=== PATIENT | male | born 1990 | race Caucasian/White ===

== ENCOUNTER 2023-12-06 16:15 | Inpatient (IN) | payer OTHER, SELFPAY ==
--- NOTE | 2023-12-06 16:26 | ED_ITS ---
HPI - General Adult General Chief complaint: Psychiatric Symptoms Stated complaint: crisis Time Seen by Provider: 12/06/23 16:38 Source: patient Mode of arrival: ambulatory Limitations: no limitations History of Present Illness HPI narrative: Patient comes to the emergency room complaining of suicidal ideation, planning to overdose. Patient states that he has been 3 months sober of alcohol and cocaine. Patient has been in sober houses but kicked out due to his bed temper. Patient states that he is afraid that he is going to continue using drugs in overdose. Patient denies homicidal ideation. Related Data Home Medications Medication Instructions Recorded Confirmed blood sugar diagnostic (FreeStyle 12/06/23 12/06/23 Lite Strips) insulin glargine 100 unit/mL (3 30 unit subcut BEDTIME 12/06/23 12/06/23 mL) subcutaneous pen (Lantus Solostar U-100 Insulin) insulin lispro protamine-lispro 1 unit subcut QID 12/06/23 12/06/23 100 unit/mL (50-50) subcutaneous pen (Humalog Mix 50-50 KwikPen) nicotine 21 mg/24 hr daily 1 patch topical DAILY 12/06/23 12/06/23 transdermal patch Allergies Allergy/AdvReac Type Severity Reaction Status Date / Time No Known Allergies Allergy Verified 12/06/23 16:26 Review of Systems 2 Review of Systems: Constitutional : No Weight loss, No Fever, No Chills, No Night Sweats, No Fatigue, No Malaise ENT/Mouth : No Hearing loss, No Ear Pain, No Nasal Congestion, No Sinus Pain, No Hoarseness, No sore throat, No Rhinorrhea, No Swallowing Difficulty Eyes: No Eye Pain, No Swelling, No Redness, No Foreign Body, No Discharge, No Vision Changes Cardiovascular : No Chest Pain, No SOB, No Dyspnea on Exertion, No Orthopnea, No Edema, No Palpitations Respiratory : No Cough, No Sputum, No Wheezing, No Smoke Exposure, No Dyspnea Gastrointestinal : No Nausea, No Vomiting, No Diarrhea, No Constipation, No abdominal Pain, No Hematochezia, No Melena Genitourinary : no irregular bleeding, No Dysuria, No Urinary Frequency, No Hematuria, No Urinary Incontinence, No Urgency, No Flank Pain, No Urinary Flow Changes, No Hesitancy Musculoskeletal : No joint pain, No Myalgias, No Joint Swelling Skin : No Skin Lesions, No rash Neuro : No Weakness, No Numbness, No Paresthesias, No Loss of Consciousness, No Dizziness, No Headache Psych : No Anxiety/Panic, complaining of depression, vague SI no HI, homeless Heme/Lymph: No Bruising, No Bleeding,No Lymphadenopathy Endocrine : No Polyuria, No Polydipsia, No Temperature Intolerance [facility] Past Medical History Medical History Depression Alcohol abuse Polysubstance abuse Social History Social History Smoked in Last 30 Days: Yes Use of substances other than those prescribed or required for medical reasons: No Substance Use Type: Former Substance User Advance Directives: No Advance Directives Information Provided: No Healthcare Proxy: No Guardian: No Physical Exam ED Vital Signs: Vital Signs - 24 hr 12/06/23 16:27 12/06/23 20:59 12/07/23 06:00 Temperature 98.0 F 98.3 F 97.8 F Pulse Rate 87 80 73 Respiratory Rate 16 16 16 Blood Pressure 129/78 122/82 104/60 Pulse Oximetry 97 98 97 Oxygen Delivery Method Room Air Room Air Room Air BMI result Body Mass Index 26.7 Const Other: Appearance: Alert. Oriented X3. No acute distress. Eyes: Pupils equal, round and reactive to light. ENT: Pharynx normal. Neck: Normal inspection. Neck supple. No lymph nodes noted. No crepitus CVS: Normal heart rate and rhythm. Pulses normal. Normal S1 and S2 Respiratory: No respiratory distress. Breath sounds normal. No Wheezing. No rales Abdomen: Soft and nontender. No rigidity. No distention. Skin: Skin warm and dry. Normal skin color. Normal skin turgor. Extremities: No lower extremity edema. No Lacerations. No Rash Neuro: Oriented X 3. No motor deficit. No sensory deficit. Moving all extremities. No slurred speech. CN 2 through 12 grossly intact Psych: calm, cooperative, normal affect Course Course Course Narrative: RME- 33 year old male presents for evaluation of depression with suicidal ideation and plan to overdose. Reports that he has not used in 3 months. Plan for medical clearance and care team consult Medications Administered Generic Name Dose Route Start Last Admin Trade Name Freq PRN Reason Stop Dose Admin Insulin Glargine 30 unit 12/06/23 22:45 12/06/23 23:23 Insulin Glargine,Hum.Rec.Anlog 100 Unit/Ml 10 Ml Vial SUBCUT 30 unit BEDTIME AURELIA Administration Discontinued Medications Generic Name Dose Route Start Last Admin Trade Name Narciso PRN Reason Stop Dose Admin Lorazepam 2 mg 12/06/23 21:12 12/06/23 21:31 Lorazepam 1 Mg Tablet PO 12/06/23 21:13 2 mg ONCE ONE Administration Nicotine 21 mg 12/06/23 21:33 12/06/23 21:39 Nicotine 21 Mg Patch.Td24 TRANSDERMA 12/06/23 21:34 21 mg ONCE ONE Administration Non-Formulary Medication 1 unit 12/06/23 22:45 12/06/23 23:31 Insulin Lispro Protamin-Lispro [Humalog Mix 50-50 Kwikpen] SUBCUT Not Given QID AURELIA Medical Decision Making Medical Decision Making MDM Narrative: -labs pending -care team consult pending -physician observation started at 17:16 12/07/2023 Physician observation continued Patient has been in the emergency department for approximately 14 hours. There were no reported incidents on this patient by the overnight staff. Patient is in [facility] bed search. Patient will remain in the emergency department Behavioral Health Unit until disposition can be determined or until patient's symptoms improve over time. Differential Diagnosis Differential Diagnoses: The differential diagnosis associated with the presentation includes (Anxiety, depression, polysubstance abuse, homeless) Admission/Observation Consideration of admission/observation: Escalation of care including admission/observation considered (Patient is under physician observation, waiting to be seen by the care team) Lab Data 12/06/23 16:45 12/06/23 16:45 Labs: Lab Results 12/06/23 12/06/23 12/06/23 Range/Units 16:45 18:34 21:45 WBC 7.8 (4.8-10.8) X10*3/uL RBC 5.29 (4.60-5.80) X10*6/uL Hgb 14.9 (14.0-18.0) g/dl Hct 42.0 (42.0-52.0) % MCV 79.4 L (80.0-98.0) fL MCH 28.2 (27.0-33.0) pg MCHC 35.5 (31.0-36.0) g/dl RDW 12.5 (11.0-16.0) % Plt Count 305 (160-400) X10*3/uL MPV 9.1 L (9.4-12.4) fL Immature Gran % (Auto) 0.4 (0.0-0.4) % Neut % (Auto) 63.1 (45-73) % Lymph % (Auto) 27.0 (20-40) % [place] % (Auto) 6.3 (2-11) % Eos % (Auto) 2.7 (0-4) % Baso % (Auto) 0.5 (0-2) % Lymph # (Auto) 2.1 (1.2-4.9) X10*3/uL [place] # (Auto) 0.5 (0.1-1.2) X10*3/uL Eos # (Auto) 0.2 (0.0-0.4) X10*3/uL Baso # (Auto) 0.0 (0.0-0.2) X10*3/uL Abs Immat Gran (auto) 0.03 (0.00-0.03) X10*3/uL Absolute Neuts (auto) 4.9 (2.0-8.3) x10*3/uL Absolute Nucleated RBC 0.000 (0.0-0.012) X10*3/uL Nucleated RBC % (auto) 0.0 (0.0-0.2) /100WBC Sodium 135 (135-145) mmol/L Potassium 4.1 (3.3-5.1) mmol/L Chloride 101 (96-108) mmol/L Carbon Dioxide 26 (22-29) mmol/L Anion Gap 12 (12-20) BUN 11 (9-16) mg/dL Creatinine 1.30 (0.5-1.4) mg/dL Estim Creat Clear Calc 76.9 Estimated GFR > 60 POC Glucose 154 H 145 H (60-115) mg/dL Random Glucose 373 H* (60-115) mg/dL Calcium 9.6 (8.4-10.2) mg/dL Total Bilirubin 0.6 (0.0-1.0) mg/dL AST 15 (5-37) U/L ALT 12 (0-40) U/L Alkaline Phosphatase 78 (39-117) U/L Total Protein 7.9 (6.5-8.0) g/dL Albumin 4.2 (3.5-5.0) g/dL Urine Color Yellow Urine Appearance Clear Urine pH 6.0 (5.0-9.0) Ur Specific [place] 1.020 (1.005-1.025) Urine Protein 30 (1+) H (Neg-Trace) mg/dL Urine Glucose (UA) >=1000 H (Negative) mg/dL Urine Ketones Negative (Negative) mg/dL Urine Blood Negative (Negative) Urine Nitrite Negative (Negative) Ur Leukocyte Esterase Negative (Negative) Urine RBC 0-2 (0-2) /HPF Urine WBC 0-5 (0-5) /HPF Ur Squamous Epith Cells 0-2 (0-2) /HPF Urine Bacteria None Seen (None Seen) Hyaline Casts 0-2 (0-2) /LPF Salicylates < 5.0 L (15-30) mg/dL Urine Opiates Screen Not Detected (Not Detect) Urine Fentanyl Screen Not Detected (Not Detect) Acetaminophen < 3 (<30) mcg/mL Ur Barbiturates Screen Not Detected (Not Detect) Ur Phencyclidine Scrn Not Detected (Not Detect) Ur Amphetamines Screen Not Detected (Not Detect) U Benzodiazepines Scrn Not Detected (Not Detect) Urine Cocaine Screen Not Detected (Not Detect) U Marijuana (THC) Screen Not Detected (Not Detect) Ethyl Alcohol < 10 mg/dL COVID-19 (LEXA) Negative (Negative) COVID-19 Clin Com See Note 12/06/23 Range/Units 22:38 WBC (4.8-10.8) X10*3/uL RBC (4.60-5.80) X10*6/uL Hgb (14.0-18.0) g/dl Hct (42.0-52.0) % MCV (80.0-98.0) fL MCH (27.0-33.0) pg MCHC (31.0-36.0) g/dl RDW (11.0-16.0) % Plt Count (160-400) X10*3/uL MPV (9.4-12.4) fL Immature Gran % (Auto) (0.0-0.4) % Neut % (Auto) (45-73) % Lymph % (Auto) (20-40) % [place] % (Auto) (2-11) % Eos % (Auto) (0-4) % Baso % (Auto) (0-2) % Lymph # (Auto) (1.2-4.9) X10*3/uL [place] # (Auto) (0.1-1.2) X10*3/uL Eos # (Auto) (0.0-0.4) X10*3/uL Baso # (Auto) (0.0-0.2) X10*3/uL Abs Immat Gran (auto) (0.00-0.03) X10*3/uL Absolute Neuts (auto) (2.0-8.3) x10*3/uL Absolute Nucleated RBC (0.0-0.012) X10*3/uL Nucleated RBC % (auto) (0.0-0.2) /100WBC Sodium (135-145) mmol/L Potassium (3.3-5.1) mmol/L Chloride (96-108) mmol/L Carbon Dioxide (22-29) mmol/L Anion Gap (12-20) BUN (9-16) mg/dL Creatinine (0.5-1.4) mg/dL Estim Creat Clear Calc Estimated GFR POC Glucose 145 H (60-115) mg/dL Random Glucose (60-115) mg/dL Calcium (8.4-10.2) mg/dL Total Bilirubin (0.0-1.0) mg/dL AST (5-37) U/L ALT (0-40) U/L Alkaline Phosphatase (39-117) U/L Total Protein (6.5-8.0) g/dL Albumin (3.5-5.0) g/dL Urine Color Urine Appearance Urine pH (5.0-9.0) Ur Specific [place] (1.005-1.025) Urine Protein (Neg-Trace) mg/dL Urine Glucose (UA) (Negative) mg/dL Urine Ketones (Negative) mg/dL Urine Blood (Negative) Urine Nitrite (Negative) Ur Leukocyte Esterase (Negative) Urine RBC (0-2) /HPF Urine WBC (0-5) /HPF Ur Squamous Epith Cells (0-2) /HPF Urine Bacteria (None Seen) Hyaline Casts (0-2) /LPF Salicylates (15-30) mg/dL Urine Opiates Screen (Not Detect) Urine Fentanyl Screen (Not Detect) Acetaminophen (<30) mcg/mL Ur Barbiturates Screen (Not Detect) Ur Phencyclidine Scrn (Not Detect) Ur Amphetamines Screen (Not Detect) U Benzodiazepines Scrn (Not Detect) Urine Cocaine Screen (Not Detect) U Marijuana (THC) Screen (Not Detect) Ethyl Alcohol mg/dL COVID-19 (LEXA) (Negative) COVID-19 Clin Com Discharge Plan Discharge Clinical Impression: Polysubstance abuse, Depression Patient Disposition: Still a Patient Prescriptions: No Action (DME) FreeStyle Lite Strips Strip 1 strip MISCELLANEOUS TID nicotine 21 mg/24 hr patch 24 hour 1 patch topical DAILY Humalog Mix 50-50 KwikPen 100 unit/mL (50-50) insulin pen 1 unit subcut QID Protocol: Insulin Correction Scale Less than or equal to 110 ---- Give (units): 0 111 to 150 Give (units): 2 151 to 200 Give (units): 2 201 to 250 Give (units): 4 251 to 300 Give (units): 6 301 to 350 Give (units): 8 Greater than 350 Give (units): 10 Call MD if Blood Glucose > : 350 Rx Instructions: Give 1U for every 20 points blood glucose is reading over 100. At meal times give 1U for every 15G of Carbohydrates. insulin glargine [Lantus Solostar U-100 Insulin] 100 unit/mL (3 mL) insulin pen 30 unit subcut BEDTIME Rx Instructions: 30U Sub Q at [facility]. Interventions: [place]-Suicide Risk Severity Scale Last Done: 12/07/23 05:54
[2023-12-06 16:27] VITALS: BP 129/78; PULSE 87; RESP 16; TEMP 36.7; O2SAT 97; BMI 26.7
--- OUTSIDE RECORDS SUMMARY | 2023-12-06 16:49 | XMS_ITS | Continuity of Care Document ---
Author Name Unknown Organization [facility] Address [address] [place] [id number]- Care Team Providers Care Marina Porter Name Role Phone Sunil Giorn MD Primary Care Physician [place] [facility] [place]/20 [facility] [address] [place] [id number] Attending Physician: Admtr, Ar8 Admitting Physician: Admtr, Ar8 Referring Physician: Admtr, Ar8 Allergies, Adverse Reactions, Alerts Substance Reaction Severity Status NKA Active Medications Admelog 100 units/mL injectable solution See Instructions, Use to infuse via insulin pump 45 units daily, E10.9, # 20 mL, 5 Refills, Maintenance, 09/22/20 8:27:00 EST, [id number], 170, cm, 09/22/20 7:59:00 EST, Height Start Date: 09/22/20 Status: Ordered Basaglar KwikPen 100 units/mL subcutaneous solution See Instructions, Take 30 units once daily. E10.65, # 30 mL, 5 Refills, Maintenance, 09/22/20 8:26:00 EST, [id number], 170, cm, 09/22/20 7:59:00 EST, Height Start Date: 09/22/20 Status: Ordered citalopram 40 mg oral tablet 1 tablet = 40 mg, By Mouth, Daily, # 90 tablet, 0 Refills, Maintenance, 01/09/16 12:12:00, Tablet, cancel rx for citalopram 20 mg daily, 1 tablet By Mouth Daily Start Date: 01/09/16 Status: Ordered Freestyle Lite Lancets See Instructions, # 200 each, Refills 6, Tot. Refills 6, Maintenance, TEST BLOOD SUGARS 6 TIMES A DAY DX: E11.9, 09/18/19 11:14:20 EST, Compound Start Date: 09/18/19 Stop Date: 04/15/20 Status: Ordered Freestyle Lite Monitor See Instructions, # 1 each, Refills 1, Tot. Refills 1, Maintenance, use to check blood sugar 6-7 times per day. E10.65., 09/22/20 8:29:00 EST, Supply, 170, cm, 09/22/20 7:59:00 EST, Height Start Date: 09/22/20 Stop Date: 11/21/20 Status: Ordered Freestyle Lite Test Strips See Instructions, # 200 each, Refills 11, Tot. Refills 11, Maintenance, for management of T1DM: check BG 6-7 times per day, 09/22/20 8:27:00 EST, Compound, 170, cm, 09/22/20 7:59:00 EST, Height Start Date: 09/22/20 Status: Ordered Glucagon Emergency Kit See Instructions, PRN, # 2 each, Refills 3, Tot. Refills 3, Maintenance, Blood Glucose, use as directed for Type 1 Diabetes Mellitus, in the event of severe low blood., 09/22/20 8:29:00 EST, Compound, 170, cm, 09/22/20 7:59:00 EST, Height Start Date: 09/22/20 Stop Date: 01/20/21 Status: Ordered Insulin Syringe, BD Ultra-Fine 0.5 cc 31 G x 8 mm (03/22in) See Instructions, # 100 each, Refills 5, Tot. Refills 5, Maintenance, use 4 x daily as directed forType 1 Diabetes Mellitus, 09/22/20 8:28:00 EST, Compound, 170, cm, 09/22/20 7:59:00 EST, Height Start Date: 09/22/20 Stop Date: 03/21/21 Status: Ordered Pen [place], 31 G x 8 mm BD Ultra Fine III See Instructions, # 100 each, Refills 11, Tot. Refills 11, Maintenance, Use to inject long acting insulin once daily. T1DM E10.9, 09/22/20 8:30:00 EST, Compound, 170, cm, 09/22/20 7:59:00 EST, Height Start Date: 09/22/20 Status: Ordered right and left cocup splints right and left cocup splints, See Instructions, # 1 pair, Refills 0, Tot. Refills 0, Maintenance, Use as directed, 01/14/15 17:28:34, Compound Start Date: 01/14/15 Status: Ordered risperiDONE 0.5 mg oral tablet 0.5 mg, 1, tablet, By Mouth, Daily, # 30 tablet, Refills 0, Maintenance, 05/13/16 15:59:31 Start Date: 05/13/16 Status: Ordered Splint See Instructions, # 1 pair, Maintenance, bilateral cocup splints DX: CTS, 04/09/16 14:07:09, Compound Start Date: 04/09/16 Status: Ordered Wellbutrin SR 100 mg oral tablet, extended release 1 tablet = 100 mg, By Mouth, 2 times a day, APPT NEEDED FOR ADDITIONAL REFILLS, # 60 tablet, 0 Refills, Maintenance, 03/16/16 18:39:03, ER Tablet Start Date: 03/16/16 Status: Ordered Problem List Condition Effective Dates Status Health Status Inform ant Carpal tunnel syndrome - bilateral(Confirmed) Active Cigarette smoker(Confirmed) Active Major depression(Confirmed) Active Insulin pump present(Confirmed) Active Pustular acne(Confirmed) Active Type 1 diabetes mellitus(Confirmed) Active Social History Social History Type Response Smoking Status Current every day brinda paniagua entered on: 05/13/16 Sex
--- OUTSIDE RECORDS SUMMARY | 2023-12-06 16:49 | XMS_ITS | Continuity of Care Document ---
Author Name Unknown Organization [facility] Address [address] [place] [address]- Care Team Providers Care Yeast Stacker Name Role Phone Not on Staff, PCP Primary Care Physician Unavail able [place] [facility] [place] - 08/20/[address] [address]- Encounter Diagnosis Lumbar transverse process fracture(Final) - 08/20/22 Discharge Disposition: A-D/C Home Attending Physician: Kobe Parks DO Admitting Physician: Kobe Parks DO Referring Physician: Not on Staff, Referring MD Allergies, Adverse Reactions, Alerts No Known Allergies Medications Basaglar KwikPen 100 units/mL subcutaneous solution See Instructions, Take 30 units once daily. E10.65, # 30 mL, 5 Refills, Maintenance, 04/21/22 14:18:00 EDT, [facility]/pharmacy #[id number], 170, cm, 01/28/21 11:40:00 EDT, Height, 73, kg, 01/28/21 11:40:00 EDT, Dry Weight Start Date: 04/21/22 Status: Ordered citalopram 40 mg oral tablet 1 tablet = 40 mg, By Mouth, Daily, # 90 tablet, 0 Refills, Maintenance, 01/09/16 12:12:00, Tablet, cancel rx for citalopram 20 mg daily, 1 tablet By Mouth Daily Start Date: 01/09/16 Status: Ordered Dilaudid Inj 1 mg, Injection, IV Push Slowly, Once, STAT, 08/20/22 8:21:00 EDT, Stop date 08/20/22 8:21:00 EDT Start Date: 08/20/22 Stop Date: 08/20/22 Status: Completed Freestyle Lite Lancets See Instructions, # 200 [...] Date: 09/22/20 Stop Date: 01/20/21 Status: Ordered Humalog 100 u/ml subcutaneous injection See Instructions, USE TO INFUSE VIA INSULIN PUMP UP TO 45 UNITS DAILY DX E10.65 FILL LISPRO ONLY, # 30 mL, 5 Refills, 04/23/22 13:54:00 EDT, [facility]/pharmacy #[id number], 170, cm, 01/28/21 11:40:00 EDT, Height, 73, kg, 01/28/21 11:40:00 EDT, Dry Weight Start Date: 04/23/22 Status: Ordered Insulin Syringe, BD Ultra-Fine 0.5 cc 31 G x 8 mm (16in) See Instructions, # 100 each, Refills 5, Tot. Refills 5, Maintenance, use 4 x daily as directed forType 1 Diabetes Mellitus, 09/22/20 8:28:00 EST, Compound, 170, cm, 09/22/20 7:59:00 EST, Height Start Date: 09/22/20 Stop Date: 03/21/21 Status: Ordered Lantus Solostar Pen 100 units/mL subcutaneous solution = 30 units, Subcutaneous Infusion, Daily, FILL LANTUS ONLY Sq injection 30 U qd DX E10.65, # 30 mL, 5 Refills, Maintenance, 04/23/22 10:57:00 EDT, [facility]/pharmacy #[id number], Partial fill upon patient request if the prescription is for a schedule II... Start Date: 04/23/22 Stop Date: 10/20/22 Status: Ordered oxyCODONE 5 mg oral tablet 5 mg, 1, tablet, By Mouth, Every 6 hours, PRN, for 5 days, # 20 tablet, Refills 0, Tot. Refills 0, Acute 08/25/22 8:52:00 EDT, as needed for pain, 08/20/22 8:52:00 EDT, Route to Pharmacy Electronically, [facility]/pharmacy #[id number], Partial fill upon patient re... Start Date: 08/20/22 Stop Date: 08/25/22 Status: Ordered Pen [place], 31 G x 8 mm BD Ultra [...] Date: 03/16/16 Status: Ordered Problem List Condition Confirmation Course Effective Dates Status Health St atus Informant Carpal tunnel syndrome - bilateral Confirmed Active Cigarette smoker Confirmed Active Major depression Confirmed Active Insulin pump present Confirmed Active Pustular acne Confirmed Active Type 1 diabetes mellitus Confirmed Active Vital Signs Most recent to oldest [Reference Range]: 1 2 3 Height 166 cm (08/20/22 6:10 AM) Weight 73 kg (08/20/22 6:10 AM) Oxygen Saturation [94-100 %] 97 % (08/20/22 8:56 AM) 98 % (08/20/22 8:25 AM) 97 % (08/20/22 7:33 AM) Pulse Rate [55-90 bpm] 81 bpm (08/20/22 8:56 AM) 75 bpm (08/20/22 8:25 AM) 78 bpm (08/20/22 7:33 AM) Blood Pressure [90-138/55-84 mm Hg] 136/88mm Hg (08/20/22 8:56 AM) 131/87mm Hg (08/20/22 8:25 AM) 110/81mm Hg (08/20/22 7:33 AM) Respiratory Rate [16-30 br/min] 18 br/min (08/20/22 8:56 AM) 18 br/min (08/20/22 8:26 AM) 18 br/min (08/20/22 8:25 AM) Temperature [96.8-100.4 DegF] 97.9 DegF (08/20/22 6:10 AM) Mode of Delivery (Oxygen) Room air (08/20/22 8:56 AM) Room air (08/20/22 8:25 AM) Room air (08/20/22 7:33 AM) Temperature Route Oral (08/20/22 6:10 AM) Dry Weight 73 kg (08/20/22 6:10 AM) Social History Social History Type Response Smoking Status Current every day brinda paniagua entered on: 05/13/16 Sex Patient Care team information Personnel Name: Not on Staff, PCP
--- OUTSIDE RECORDS SUMMARY | 2023-12-06 16:49 | XMS_ITS | Continuity of Care Document ---
Author Name Unknown Organization [facility] Address [address] [place] [address]- Care Team Providers Care Nut Sheller Name Role Phone Not on Staff, PCP Primary Care Physician Unavail able [place] [facility] [place]23 - 07/23/23 [facility] [address] [place] [id number]- Allergies, Adverse Reactions, Alerts No Known Allergies Medications citalopram 40 mg oral tablet 1 tablet [...] 30 mL, 5 Refills, 04/23/22 13:54:00 EDT, [id number], 170, cm, 01/28/21 11:40:00 EDT, Height, [...] U qd DX E10.65, # 30 mL, 3 Refills, Maintenance, 06/23/23 8:34:00 EDT, [facility]/pharmacy #[id number], Partial fill upon patient request if the prescription is for a schedule II opioi... Start Date: 06/23/23 Stop Date: 10/21/23 Status: Ordered Pen [place], 31 G x 8 mm BD Ultra [...] Condition Confirmation Course Effective Dates Status Health atus Informant Carpal tunnel syndrome - bilateral Confirmed Active Cigarette smoker Confirmed Active Major depression Confirmed Active Insulin pump present Confirmed Active Pustular acne Confirmed Active Type 1 diabetes mellitus Confirmed Active Social History Social History Type Response Smoking Status Current every day brinda paniagua entered on: 05/13/16 Sex Patient Care team information Care Team Personnel Name: Not on Staff, PCP Position: S Physician (General Medicine) Member Role: PCP Care Team Related Persons Name: NIEVES BARGER Address: [place] [address] Name: DL BARGER Address: home [address] [place] [id number]
--- OUTSIDE RECORDS SUMMARY | 2023-12-06 16:49 | XMS_ITS | Continuity of Care Document ---
Author Name Unknown Organization [facility] Address [address] [place] [address]- Care Team Providers Care Cork Cutter Name Role Phone Not on Staff, PCP Primary Care Physician Unavail able [place] [facility] [place] 04[place] 06/[place]/22 [facility] [address] [place] [id number] Attending Physician: Mary Guillen MD Admitting Physician: Mary Guillen MD Referring Physician: Not on Staff, Referring MD Allergies, Adverse Reactions, Alerts No Known Allergies Medications Basaglar KwikPen 100 units/mL subcutaneous solution See Instructions, Take 30 units once daily. E10.65, # 30 mL, 5 Refills, Maintenance, 04/21/22 14:18:00 EDT, [id number], 170, cm, 01/28/21 11:40:00 [...] 30 mL, 5 Refills, 04/23/22 13:54:00 EDT, [facility]/pharmacy #[id number], 170, cm, 01/28/21 11:40:00 EDT, Height, [...] mL, 5 Refills, Maintenance, 04/23/22 10:57:00 EDT, [facility]/pharmacy #[id number], Partial fill upon patient request if the prescription is for a schedule II... Start Date: 04/23/22 Stop Date: 10/20/22 Status: Ordered Pen [place], 31 G x 8 mm BD Ultra [...]
--- OUTSIDE RECORDS SUMMARY | 2023-12-06 16:49 | XMS_ITS | Continuity of Care Document ---
Author Name Unknown Organization [facility] Address [address] [place] [address]- Care Team Providers Care Air Pumper Name Role Phone Not on Staff, PCP Primary Care Physician Unavail able En[place] [facility] [place] Date(s): 04/23/22 - 05/23/22 [facility] Diabetes [address] [place] [id number] Allergies, Adverse Reactions, Alerts No Known Allergies [...] 0.5 cc 31 G x 8 mm (5/16in) See Instructions, # 100 each, Refills 5, [...] mL, 5 Refills, Maintenance, 04/23/22 10:57:00 EDT, [id number], Partial fill upon patient request if the prescription is for a schedule II... Start Date: 04/23/22 Stop Date: 10/20/22 Status: Ordered Pen [place], 31 G x 8 mm BD Ultra [...]
--- OUTSIDE RECORDS SUMMARY | 2023-12-06 16:49 | XMS_ITS | Continuity of Care Document ---
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 fractures involving the anterior wall of the LEFT maxillary sinus extending into the maxillary alveolus into the region of the costophrenic first bicuspid. * Acute displaced LEFT nasal bone fracture. * Severe dental disease. * No acute intracranial hemorrhage, depressed calvarial fracture, or acute cervical vertebral osseous injury identified. Thank you for letting us participate in the care of this patient. If you are a health care provider and have any questions regarding this report, please contact the number below. For patients who have questions please contact the health healthcare project manager that requested your imaging first. ?? Signed By: RADHA SOLIS . Notes: Patient presented the emergency room with details listed in the HPI above. I discussed with patient a broad differential diagnosis including but not limited to intracranial bleeding, concussion, cervical injury, and/or facial fracture. Appropriate work-up has been ordered to address a broad differential including that listed above. Patient will continue to be monitored., 1850 patient was reevaluated feeling much better wanting to go home. Patient is aware of his old fractures. He is aware of his new fractures including his maxillary fracture and nasal fracture. He understands he needs to follow-up with ENT for any potential need to reduce his nasal fracture once the swelling is decreased. He has no septal hematoma. He was given strict return instructions. I discussed with them a broad differential diagnosis. Discussed with them all incidental findings and they acknowledged understanding. They acknowledge the need to follow-up with her primary care provider to discuss today's findings and any need for further follow-up. They agreed should their symptoms worsen, change, any concerns to contact their regular provider or return to the ER immediately. This report has been created through the use of voice recognition software. Typographical and content errors may occur with this process. While efforts are made to correct such errors, in some cases,errors will persist. For this reason, wording in this documentation should be considered in the proper context and not strictly verbatim. Please contact the Emergency Department for any further questions. . Reexamination/ Reevaluation Vital signs Basic Oxygen Information 03/12/2023 17:04 EDT Oxygen Flow Rate 0 L/min Impression and Plan Diagnosis Closed head injury, nasal fracture, left maxillary fracture Plan Condition: Stable. Disposition: Discharged. Patient was given the following educational materials: Nasal Fracture, Head Injury, Adult. Follow up with: ; Follow up with primary care provider Within 1 to 2 days Please contact your regular provider to see when they like to follow-up with you and review today's results and findings.; KENROY DURAN Within 1 to 2 days Call their office to see when they like to follow-up with you; Return toEmergency Department Within As needed Return to the ER immediately if your symptoms worsen, change,or any concerns. Otherwise please follow-up with your primary care provider. This is important thatyou follow-up with your primary care provider to discuss today's visit, results, and need for any future care or outpatient consults.. Counseled: Patient, Regarding diagnosis, Regarding diagnostic results, Regarding treatment plan, Patient indicated understanding of instructions. [Electronically Signed on: 03/12/2023 18:53 EDT] JANY QUEZADA DO [Electronically Signed on: 03/12/2023 19:22 EDT] JANY QUEZADA DO [Verified on: 03/12/2023 18:53 EDT] JANY QUEZADA DO CT Cervical spine WO contrast * RADHA SOLIS: VERIFY, VERIFY, PERFORM Event Display: Report Authored Date: [id number] EXAMINATION: CT Head or Brain w/o Contrast, CT Maxillofacial w/o Contrast, CT Spine Cervical w/o Contrast CLINICAL HISTORY: trauma TECHNIQUE: * Noncontrast CT head. * Noncontrast CT facial bones. * Noncontrast CT cervical spine. COMPARISON: CT head 08/26/2020. CT facial bones 09/24/2021. FINDINGS: HEAD: Keita-white interfaces appear relatively well differentiated. Mild parenchymal atrophy, mildly central greater than peripheral. No acute intracranial hemorrhage identified. No significant mass effect appreciated. Included otomastoid spaces appear well aerated. Calvarium appears intact. FACIAL BONES: Displaced LEFT nasal bone fracture, new compared to 09/24/2021. Chronic LEFT-sided fractures involving the lateral and inferior orbital varner as well as maxillary sinus varner. Superimposed upon these chronic LEFT-sided fractures is what appears to be new acute fracture involving the anterior wall the LEFT maxillary sinus just extending to the alveolus with subtle nondisplaced fracture line extending through the region of the cuspid and first bicuspid. Acute hemorrhage within the LEFT maxillary sinus. Mucosal thickening in the RIGHT maxillary antrum. Severe dental disease including periapical lucencies and dental caries as well as moderately large periapical lucency/abscess with severe cortical thinning involving the region of the RIGHT maxillary incisors. CERVICAL SPINE: Straightening of expected lordosis with mild reversal. No evidence of acute traumatic malalignment otherwise appreciated. No acute fracture identified. Prevertebral soft tissues appear unremarkable. Nonspecific stranding of the dorsal subcutaneous tissues. IMPRESSION: * Chronic LEFT-sided facial bone fractures, with superimposed new/acute fractures involving the anterior wall of the LEFT maxillary sinus extending into the maxillary alveolus into the region of the costophrenic first bicuspid. * Acute displaced LEFT nasal bone fracture. * Severe dental disease. * No acute intracranial hemorrhage, depressed calvarial fracture, or acute cervical vertebral osseous injury identified. Thank you for letting us participate in the care of this patient. If you are a health care provider and have any questions regarding this report, please contact the number below. For patients who have questions please contact the health healthcare project manager that requested your imaging first. Final Dictated: 03/12/2023 6:32 pm RADHA SOLIS Signed (Electronic Signature): 03/12/2023 6:32 pm Signed by: RADHA SOLIS CT Maxillofacial region WO contrast * RADHA SOLIS: VERIFY, VERIFY, PERFORM Event Display: Report Authored Date: [id number] EXAMINATION: CT Head or Brain w/o Contrast, CT Maxillofacial w/o Contrast, CT Spine Cervical w/o Contrast CLINICAL HISTORY: trauma TECHNIQUE: * Noncontrast CT head. * Noncontrast CT facial bones. * Noncontrast CT cervical spine. COMPARISON: CT head 08/26/2020. CT facial bones 09/24/2021. FINDINGS: HEAD: Keita-white interfaces appear relatively well differentiated. Mild parenchymal atrophy, mildly central greater than peripheral. No acute intracranial hemorrhage identified. No significant mass effect appreciated. Included otomastoid spaces appear well aerated. Calvarium appears intact. FACIAL BONES: Displaced LEFT nasal bone fracture, new compared to 09/24/2021. Chronic LEFT-sided fractures involving the lateral and inferior orbital varner as well as maxillary sinus varner. Superimposed upon these chronic LEFT-sided fractures is what appears to be new acute fracture involving the anterior wall the LEFT maxillary sinus just extending to the alveolus with subtle nondisplaced fracture line extending through the region of the cuspid and first bicuspid. Acute hemorrhage within the LEFT maxillary sinus. Mucosal thickening in the RIGHT maxillary antrum. Severe dental disease including periapical lucencies and dental caries as well as moderately large periapical lucency/abscess with severe cortical thinning involving the region of the RIGHT maxillary incisors. CERVICAL SPINE: Straightening of expected lordosis with mild reversal. No evidence of acute traumatic malalignment otherwise appreciated. No acute fracture identified. Prevertebral soft tissues appear unremarkable. Nonspecific stranding of the dorsal subcutaneous tissues. IMPRESSION: * Chronic LEFT-sided facial bone fractures, with superimposed new/acute fractures involving the anterior wall of the LEFT maxillary sinus extending into the maxillary alveolus into the region of the costophrenic first bicuspid. * Acute displaced LEFT nasal bone fracture. * Severe dental disease. * No acute intracranial hemorrhage, depressed calvarial fracture, or acute cervical vertebral osseous injury identified. Thank you for letting us participate in the care of this patient. If you are a health care provider and have any questions regarding this report, please contact the number below. For patients who have questions please contact the health healthcare project manager that requested your imaging first. Final Dictated: 03/12/2023 6:32 pm RADHA SOLIS Signed (Electronic Signature): 03/12/2023 6:32 pm Signed by: RADHA SOLIS CT Head WO contrast * RADHA SOLIS: VERIFY, VERIFY, PERFORM Event Display: Report Authored Date: [id number] EXAMINATION: CT Head or Brain w/o Contrast, CT Maxillofacial w/o Contrast, CT Spine Cervical w/o Contrast CLINICAL HISTORY: trauma TECHNIQUE: * Noncontrast CT head. * Noncontrast CT facial bones. * Noncontrast CT cervical spine. COMPARISON: CT head 08/26/2020. CT facial bones 09/24/2021. FINDINGS: HEAD: Keita-white interfaces appear relatively well differentiated. Mild parenchymal atrophy, mildly central greater than peripheral. No acute intracranial hemorrhage identified. No significant mass effect appreciated. Included otomastoid spaces appear well aerated. Calvarium appears intact. FACIAL BONES: Displaced LEFT nasal bone fracture, new compared to 09/24/2021. Chronic LEFT-sided fractures involving the lateral and inferior orbital varner as well as maxillary sinus varner. Superimposed upon these chronic LEFT-sided fractures is what appears to be new acute fracture involving the anterior wall the LEFT maxillary sinus just extending to the alveolus with subtle nondisplaced fracture line extending through the region of the cuspid and first bicuspid. Acute hemorrhage within the LEFT maxillary sinus. Mucosal thickening in the RIGHT maxillary antrum. Severe dental disease including periapical lucencies and dental caries as well as moderately large periapical lucency/abscess with severe cortical thinning involving the region of the RIGHT maxillary incisors. CERVICAL SPINE: Straightening of expected lordosis with mild reversal. No evidence of acute traumatic malalignment otherwise appreciated. No acute fracture identified. Prevertebral soft tissues appear unremarkable. Nonspecific stranding of the dorsal subcutaneous tissues. IMPRESSION: * Chronic LEFT-sided facial bone fractures, with superimposed new/acute fractures involving the anterior wall of the LEFT maxillary sinus extending into the maxillary alveolus into the region of the costophrenic first bicuspid. * Acute displaced LEFT nasal bone fracture. * Severe dental disease. * No acute intracranial hemorrhage, depressed calvarial fracture, or acute cervical vertebral osseous injury identified. Thank you for letting us participate in the care of this patient. If you are a health care provider and have any questions regarding this report, please contact the number below. For patients who have questions please contact the health healthcare project manager that requested your imaging first. Final Dictated: 03/12/2023 6:32 pm RADHA SOLIS Signed (Electronic Signature): 03/12/2023 6:32 pm Signed by: RADHA SOLIS Patient Care team information Care Team Personnel Name: Kika Kumar Position: [facility] No Access Member Role: Primary Care Physician Name: Vesna Sims RN Position: [facility] Member Role: Registered Nurse Name: JANY QUEZADA Position: [facility] ED Physician LP Member Role: Attending Physician Address: Address: [address] [place] [address] Care Team Related Persons Name: GARRETT BARGER
--- OUTSIDE RECORDS SUMMARY | 2023-12-06 16:49 | XMS_ITS | Continuity of Care Document ---
Author Name Unknown Organization [facility] Address [address] [place] [id number]- Care Team Providers Care Administrative Judge Name Role Phone Sunil Giron MD Primary Care Physician Encounter [facility] [place] Date(s): 09/27/19 - 01/25/20 [facility] [address] [place] [id number] [facility] Attending Physician: Delmis Webb MD Admitting Physician: Delmis Webb MD Referring Physician: Sunil Giron MD Allergies, Adverse Reactions, Alerts Substance Reaction Severity Status NKA Active Medications Admelog 100 units/mL injectable solution See Instructions, Use to infuse via insulin pump 45 units daily, E10.9, # 20 mL, 6 Refills, Maintenance, 12/04/19 10:16:00 EST, [id number], 170, cm, 09/18/19 11:03:00 EST, Height Start Date: 12/04/19 Status: Ordered Admelog SoloStar 100 units/mL injectable solution See Instructions, T1DM E10.9 Subcutaneous Infusion 3x daily before meals max daily dose 57 units, #30 mL, 5 Refills, Maintenance, 10/01/19 14:19:43 EST Start Date: 10/01/19 Status: Ordered Basaglar KwikPen 100 units/mL subcutaneous solution = 45 units, Subcutaneous Infusion, Daily at bedtime, # 30 mL, 5 Refills, Maintenance, 09/27/19 11:40:58 EST Start Date: 09/27/19 Status: Ordered citalopram 40 mg oral tablet [...] Stop Date: 04/15/20 Status: Ordered Freestyle Lite Test Strips See Instructions, # 200 each, Refills 11, Tot. Refills 11, Maintenance, for management of T1DM: check BG 6-7 times per day, 06/11/16 14:55:11, Compound Start Date: 06/11/16 Status: Ordered Freestyle Lite Test Strips See Instructions, # 200 each, Refills 11, Tot. Refills 11, Maintenance, test blood sugar 4x/day E10.9, 09/18/19 11:14:48 EST, Compound Start Date: 09/18/19 Status: Ordered Glucagon Emergency Kit See Instructions, PRN, # 2 each, Refills 3, Tot. Refills 3, Maintenance, Blood Glucose, use as directed for Type 1 Diabetes Mellitus, 09/18/19 11:28:04 EST, Compound Start Date: 09/18/19 Stop Date: 01/16/20 Status: Ordered Glucagon Emergency Kit See Instructions, # 2 applicator, Refills 11, Tot. Refills 11, Maintenance, Use for unresponsive hypoglycemia., 05/29/13 16:22:14 Start Date: 05/29/13 Status: Ordered Insulin Syringe, BD Ultra-Fine 0.5 cc 31 G x 8 mm (5/16in) See Instructions, # 200 each, Refills 5, Tot. Refills 5, Maintenance, Use to inject insulin up to 6times daily or as directed. Dx: E10.9, 11/17/15 16:10:21, Compound Start Date: 11/17/15 Status: Ordered Insulin Syringe, BD Ultra-Fine 0.5 cc 31 G x 8 mm (5/16in) See Instructions, # 100 each, Refills 5, Tot. Refills 5, Maintenance, use 4 x daily as directed forType 1 Diabetes Mellitus, 09/18/19 11:19:03 EST, Compound Start Date: 09/18/19 Stop Date: 03/16/20 Status: Ordered Insulin Syringe, BD Ultra-Fine 0.5 cc 31 G x 8 mm (516in) See Instructions, # 180 each, Refills 3, Tot. Refills 3, Maintenance, for use with humalog and lantus insulin 6 times daily E10.65, 09/18/18 9:22:31 EST, Compound Start Date: 09/18/18 Status: Ordered Insulin Syringe, BD Ultra-Fine 0.5 cc 31 G x 8 mm (16in) See Instructions, Refills 1, Tot. Refills 1, Maintenance, use as directed for Type 1 Diabetes Mellitus. injects up to 6 times/d, 05/29/13 16:22:46 Start Date: 05/29/13 Stop Date: 07/28/13 Status: Ordered Lantus 100 u/ml subcutaneous solution = 30 units, Subcutaneous Injection, Daily, Pt to inject in the event of insulin pump failure,# 10 mL, 1 Refills, Soft Stop, 09/18/18 9:21:11 EST, Solution Start Date: 09/18/18 Status: Ordered Pen [place], 31 G x 8 mm BD Ultra Fine III See Instructions, # 150 each, Refills 11, Tot. Refills 11, Maintenance, for insulin injections 4x daily T1DM E10.9, 09/27/19 11:40:35 EST, Compound Start Date: 09/27/19 Status: Ordered right and left cocup splints [...]
--- OUTSIDE RECORDS SUMMARY | 2023-12-06 16:49 | XMS_ITS | Continuity of Care Document ---
Author Name Unknown Organization [facility] Address [address] [place] [address]- Care Team Providers Care Mixing Technician Name Role Phone Not on Staff, PCP Primary Care Physician Unavail able Encounter [facility] [place] Date(s): 05/06/22 - 06/05/22 [facility] [address] [place] [id number] Attending Physician: Antonia Ibrahim Admitting Physician: Antonia Ibrahim Referring Physician: AdmtrAntonia Allergies, Adverse Reactions, Alerts No Known Allergies [...] 30 mL, 5 Refills, 04/23/22 13:54:00 EDT, [facility]/pharmacy #[id number], 170, cm, 01/28/21 11:40:00 EDT, Height, [...] mL, 5 Refills, Maintenance, 04/23/22 10:57:00 EDT, [facility]/pharmacy #[id number], Partial fill upon patient request if the prescription is for a schedule II... Start Date: 04/23/22 Stop Date: 10/20/22 Status: Ordered Pen [place], 31 G x 8 mm BD Ultra [...]
--- OUTSIDE RECORDS SUMMARY | 2023-12-06 16:49 | XMS_ITS | Continuity of Care Document ---
Author Name Unknown Organization [facility] Address [address] [place] [id number]- Care Team Providers Care Clinic Coordinator Name Role Phone Kika Kumar Primary Care Physician U aristides Encounter BVT Date(s): 09/03/20 - 09/03/[address] [id number]- Encounter Diagnosis Type 1 diabetes mellitus with hypoglycemia(Discharge Diagnosis) - 09/03/20 Discharge Disposition: Home or Self Care Attending Physician: Leilani Fernández Admitting Physician: Leilani Fernández Allergies, Adverse Reactions, Alerts No Known Allergies Functional Status 09/03/20 Recent Travel History No recent travel Family Member Travel History No recent t ravel COVID-19 Screening None Medications HumaLOG 100 units/mL injectable solution 5 unit(s), Subcutaneous, TIDAC, # 10 mL, 0 Refill(s) Start Date: 09/03/20 Status: Ordered Lantus Subcutaneous, Daily, 0 Refill(s) Start Date: 09/03/20 Status: Ordered Results Laboratory List Name Date Glucose POC 09/03/20 Urinalysis with Culture, if indicated Standard (UA w Culture if Ind Standard) 09/03/20 Automated Differential Standard 09/03/20 CBC w/Diff Standard 09/03/20 Comprehensive Metabolic Panel Standard ( CMP Standard) 09/03/20 Urinalysis Microscopic Standard 09/03/20 Glucose POC 09/03/20 Most recent to oldest [Reference Range]: 1 2 Urine Culture? No (09/03/20 5:33 PM) NRBC Auto Pct [0.00-0.20 %] 0.00 % (09/03/20 5:30 PM) Creatinine [0.70-1.20 mg/dL] 1.03 mg/dL (09/03/20 5:30 PM) UA Bacteria [None Seen] Small *ABN* (09/03/20 5:33 PM) UA Bili [Negative] Negative (09/03/20 5:33 PM) UA Blood [Negative] Negative (09/03/20 5:33 PM) UA Color Dark yellow *NA* (09/03/20 5:33 PM) UA Fine Gran 0-5 /LPF (09/03/20 5:33 PM) UA Glucose [Negative] 500 mg/dL *ABN* (09/03/20 5:33 PM) UA Ketones [Neg] Trace *ABN* (09/03/20 5:33 PM) UA Leuk Est [Negative] Negative (09/03/20 5:33 PM) UA Mucous Slight *ABN* (09/03/20 5:33 PM) UA Nitrite [Negative] Negative (09/03/20 5:33 PM) UA Protein [Negative] 100 mg/dL *ABN* (09/03/20 5:33 PM) UA RBC [0-2] 0-2 (09/03/20 5:33 PM) UA Urobilinogen 0.2 EU/dL (09/03/20 5:33 PM) UA WBC 0-2 (09/03/20 5:33 PM) AGAP [10.0-18.0 mmol/L] 15.7 mmol/L (09/03/20 5:30 PM) Glucose Lvl [70-100 mg/dL] 131 mg/dL *HI* (09/03/20 5:30 PM) Hct [40.1-51.0 %] 49.4 % (09/03/20 5:30 PM) Hgb [13.7-17.5 gm/dL] 17.3 gm/dL (09/03/20 5:30 PM) Lymph Auto [15.0-45.0 %] 15.4 % (09/03/20 5:30 PM) MCH [25.6-32.2 pg] 29.7 pg (09/03/20 5:30 PM) MCHC [32.3-36.5 gm/dL] 35.0 gm/dL (09/03/20 5:30 PM) MCV [79.0-92.2 fL] 84.7 fL (09/03/20 5:30 PM) [place] Auto [4.0-14.0 %] 7.8 % (09/03/20 5:30 PM) MPV [9.4-12.4 fL] 8.7 fL *LOW* (09/03/20 5:30 PM) Neutro Auto [50.0-75.0 %] 75.0 % (09/03/20 5:30 PM) Osmolality [268.0-291.0 mOsm/kg] 281.0 m Osm/kg (09/03/20 5:30 PM) Platelet [150-400 x10(3)/uL] 308 x10(3)/ uL (09/03/20 5:30 PM) RBC [4.63-6.08 x10(6)/uL] 5.83 x10(6)/uL (09/03/20 5:30 PM) Sodium Lvl [136-145 mmol/L] 140 mmol/L (09/03/20 5:30 PM) Total Protein [6.6-8.7 gm/dL] 7.9 gm/dL (09/03/20 5:30 PM) UA pH 6.0 (09/03/20 5:33 PM) Albumin Lvl [3.50-5.20 gm/dL] 4.50 gm/dL (09/03/20 5:30 PM) Alk Phos [40-130 IntUnit/L] 138 IntUnit/ L *HI* (09/03/20 5:30 PM) ALT [0-41 IntUnit/L] 13 IntUnit/L (09/03/20 5:30 PM) AST [0-40 IntUnit/L] 15 IntUnit/L (09/03/20 5:30 PM) Basophil Auto [0.0-2.0 %] 0.3 % (09/03/20 5:30 PM) Bili Total [0.0-1.3 mg/dL] 0.8 mg/dL (09/03/20 5:30 PM) CO2 [22-29 mmol/L] 28 mmol/L (09/03/20 5:30 PM) Eos Auto [0.0-8.0 %] 0.9 % (10/28/20 5:30 PM) UA Spec Grav 1.025 (09/03/20 5:33 PM) WBC [4.2-9.1 x10(3)/uL] 10.1 x10(3)/uL *HI* (09/03/20 5:30 PM) BUN [6-23 mg/dL] 12 mg/dL (09/03/20 5:30 PM) Calcium Lvl [8.6-10.2 mg/dL] 9.8 mg/dL (09/03/20 5:30 PM) Chloride [98-107 mmol/L] 101 mmol/L (09/03/20 5:30 PM) Potassium Lvl [3.5-5.1 mmol/L] 4.7 mmol/ L (09/03/20 5:30 PM) Micro? [Not Indicated] Indicated *ABN* (09/03/20 5:33 PM) Lymph Absolute [1.30-3.60 x10(3)/uL] 1.5 6 x10(3)/uL (09/03/20 5:30 PM) [place] Absolute [0.30-0.80 x10(3)/uL] 0.79 x10(3)/uL (09/03/20 5:30 PM) Eos Absolute [0.04-0.36 x10(3)/uL] 0.09 x10(3)/uL (09/03/20 5:30 PM) NRBC Absolute [0.00-0.01 x10(3)/uL] 0.00 x10(3)/uL (09/03/20 5:30 PM) UA Clarity Clear (09/03/20 5:33 PM) Neutro Absolute [1.78-5.38 x10(3)/uL] 7. 57 x10(3)/uL *HI* (09/03/20 5:30 PM) RDW-CV [11.6-14.4 %] 12.5 % (09/03/20 5:30 PM) Glucose POC [70-100] 261 *HI* (09/03/20 6:53 PM) 120 *HI* (09/03/20 4:37 PM) GFR >60 mL/min/1.73 m2 *NA* (09/03/20 5:30 PM) GFR NonAfrican [place] >60 mL/min/1.73 m2 *NA* (09/03/20 5:30 PM) UA Squam Epi Few *ABN* (09/03/20 5:33 PM) Blood Glucose, Capillary POC [74-118 mg/ dL] 261 mg/dL *HI* (09/03/20 6:54 PM) Immature Gran % [0.00-2.30 %] 0.60 % (09/03/20 5:30 PM) Immature Gran Absolute 0.06 x10(3)/uL *NA* (09/03/20 5:30 PM) Basophil Absolute [0.00-0.10 x10(3)/uL] 0.03 x10(3)/uL (09/03/20 5:30 PM) Radiology Reports * Exam Date Time Procedure Performing Provider Status 09/03/20 5:[address] Head or Brain w/o Contrast Whitema n, Monica E; Auth (Verified) Notes: (CT Head or Brain w/o Contrast) Reason For Exam: seizure/hit head CT Head or Brain w/o Contrast EXAMINATION: CT Head or Brain w/o Contrast CLINICAL HISTORY: seizure/hit head TECHNIQUE: CT head performed without intravenous contrast administration. COMPARISON: None FINDINGS: No acute intracranial hemorrhage, mass effect or extra-axial collection. The bernardo-white differentiation is maintained. The ventricles are normal in caliber. The visualized orbits are unremarkable. The partially visualized right maxillary sinus demonstrates moderate mucosal thickening. The otomastoid spaces are clear. No calvarial fracture or significant extracalvarial soft tissue swelling. IMPRESSION: No acute intracranial hemorrhage or mass effect. Thank you for letting us participate in the care of this patient. For questions regarding this report, please contact the number below. Final Dictated: 09/03/2020 5:14 pm MARNIE SHETTY Signed (Electronic Signature): 09/03/2020 5:14 pm Signed by: MARNIE SHETTY Vital Signs Most recent to oldest [Reference Range]: 1 2 3 Temperature Temporal [36.3-37.8 DegC] 36.6 DegC (09/03/20 7:40 PM) 37 DegC (09/03/20 4:41 PM) Peripheral Pulse Rate [60-100 bpm] 85 bpm (09/03/20 7:40 PM) 81 bpm (09/03/20 6:26 PM) 90 bpm (09/03/20 4:41 PM) Respiratory Rate [14-20 br/min] 16 br/min (09/03/20 7:40 PM) 18 br/min (09/03/20 4:41 PM) Blood Pressure [90-140/60-90 mmHg] 141/94mmHg *HI* (09/03/20 7:40 PM) 142/97mmHg *HI* (09/03/20 6:26 PM) 149/107mmHg *HI* (09/03/20 4:41 PM) BP Site Right arm (09/03/20 6:26 PM) SpO2 [92-100 %] 99 % (09/03/20 7:40 PM) 97 % (09/03/20 6:26 PM) 97 % (09/03/20 4:41 PM) Height/Length Estimated 170.200 cm (09/03/20 4:41 PM) Height/Length Dosing 170.200 cm (09/03/20 4:51 PM) Weight Estimated 170.000 kg (09/03/20 7:40 PM) 170.000 kg (09/03/20 4:41 PM) Weight Dosing 170.000 kg (09/03/20 4:51 PM) Social History Social History Type Response Smoking Status 5-9 cigarettes (betw een 1/4 to 1/2 pack)/day in last 30 days entered on: 09/03/20 Sex Hospital Discharge Instructions Patient Education 09/03/2020 19:17:26 Work/School Excuse ([employer]URRAY) Work/School Excuse [facility] Emergency Department Date:09/03/2020 Please excuse Jorge Jim from work tomorrow 09/04/2020. The patient was seen today in the ED. Provider: Leilani Fernández PA-C Signature: 09/03/2020 19:17:26 JAIME [place] Template (Custom) 1. As we discussed recommend calling your threading machine tender, tomorrow regarding your insulin, diabetes management. Continue monitoring you blood glucose. 2. No driving, swimming, diving. 3. Should you develop any worsening symptoms, low blood sugar, chest pain, shortness of breath, dizziness, unable to control your blood glucose, please return to the emergency department. Any worsening concerning symptoms please return to the emergency department, we are open 24 hours 7days a week. 09/03/2020 19:17:26 Type 1 Diabetes Mellitus, Diagnosis, Adult Type 1 Diabetes Mellitus, Diagnosis, Adult Type 1 diabetes (type 1 diabetes mellitus) is a long-term (chronic) disease. It occurs when the pancreas does not make enough of a hormone called insulin. Normally, insulin allows sugars (glucose) toenter cells in the body. The cells use glucose for energy. Lack of insulin causes excess glucose tobuild up in the blood instead of going into cells. As a result, high blood glucose (hyperglycemia) develops. The exact cause of type 1 diabetes is not known. There is currently no cure for type 1 diabetes, but it can be managed with insulin treatment and lifestyle changes. What increases the risk? You may be more likely to develop this condition if you have a family member who has type 1 diabetes. Other factors may also make you more likely to develop type 1 diabetes, such as: ??? Having a gene for type 1 diabetes that is passed along from parent to child (inherited). ??? Living in an area with cold weather conditions. ??? Exposure to certain viruses. ??? Certain conditions in which the body's disease-fighting (immune) system attacks itself (autoimmune disorders). What are the signs or symptoms? Symptoms may develop gradually over days or weeks, or they may develop suddenly. Symptoms may include: ??? Increased thirst (polydipsia). ??? Increased hunger??(polyphagia). ??? Increased urination (polyuria). ??? Increased urination during the night (nocturia). ??? Sudden or unexplained weight changes. ??? Frequent infections that keep coming back (recurring). ??? Fatigue. ??? Weakness. ??? Vision changes, such as blurry vision. ??? Fruity-smelling breath. ??? Cuts or bruises that are slow to heal. ??? Tingling or numbness in the hands or feet. How is this diagnosed? This condition is diagnosed based on your symptoms, your medical history, a physical exam, and yourblood glucose level. Your blood glucose may be checked with one or more of the following blood tests: ??? A fasting blood glucose (FBG) test. You will not be allowed to eat (you will fast) for 8 hours or longer before a blood sample is taken. ??? A random blood glucose test. This checks blood glucose at any time of day regardless of when you ate. ??? An A1c (hemoglobin A1c) blood test. This provides information about blood glucose control over the previous 2???3 months. You may be diagnosed with type 1 diabetes if: ??? Your FBG level is 126 mg/dL (7.0 mmol/L) or higher. ??? Your random blood glucose level is 200 mg/dL (11.1 mmol/L) or higher. ??? Your A1c level is 6.5% or higher. These blood tests may be repeated to confirm your diagnosis. How is this treated? Your treatment may be managed by a specialist called an threading machine tender. Type 1 diabetes can be managed by following instructions from your health care provider about: ??? Taking insulin daily. This helps to keep your blood glucose levels in the healthy range. ??? You may need to adjust your insulin dosage based on how physically active you are and what foods you eat. Your health care provider will tell you how to do this. ??? Taking medicines to help prevent complications from diabetes, such as: ??? Aspirin. ??? Medicine to lower cholesterol. ??? Medicine to control blood pressure. ??? Checking your blood glucose as often as directed. ??? Making diet and lifestyle changes. These may include: ??? Following an individualized nutrition plan that is developed by a diet and nutrition services associate(registered dietitian). ??? Exercising regularly. ??? Finding ways to manage stress. Your health care provider will set individualized treatment goals for you. Your goals will be basedon your age, other medical conditions you have, and how you respond to diabetes treatment. Generally, the goal of treatment is to maintain the following blood glucose levels: ??? Before meals (preprandial): 80???130 mg/dL (4.4???7.2 mmol/L). ??? After meals (postprandial): below 180 mg/dL (10 mmol/L). ??? A1c level: less than 7%. Follow these instructions at home: Questions to ask your health care provider ??? Consider asking the following questions: ??? Do I need to meet with a software educator? Should I consider joining a support group for people with diabetes? What equipment will I need to manage my diabetes at home? What diabetes medicines should I take, and when? How often should I check my blood glucose? What number should I call if I have questions? When is my next appointment? General instructions ??? Take pfaw-oyx-oosbcvo and prescription medicines only as told by your health care provider. ??? Keep all follow-up visits as told by your health care provider. This is important. ??? For more information about diabetes, visit: ??? [place] Diabetes Association (ADA): www.diabetes.org ??? [place] Association of Diabetes Educators (AADE): www.diabeteseducator.org Contact a health care provider if: ??? Your blood glucose level is higher than 240 mg/dL (13.3 mmol/L) for 2 days in a row. ??? You have been sick or have had a fever for 2 days or more and you are not getting better. ??? You have any of the following problems for more than 6 hours: ??? You cannot eat or drink. ??? You have nausea and vomiting. ??? You have diarrhea. Get help right away if: ??? Your blood glucose is below 54 mg/dL (3 mmol/L). ??? You become confused or you have trouble thinking clearly. ??? You have difficulty breathing. ??? You have moderate or large ketone levels in your urine. Summary ??? Type 1 diabetes (type 1 diabetes mellitus) is a long-term (chronic) disease. It occurs when thepancreas does not make enough of a hormone called insulin. ??? This condition is treated by taking insulin and other medicines to help prevent complications from diabetes. Diet and lifestyle changes are also part of treatment. ??? Your health care provider will set individualized treatment goals for you. Your goals will be based on your age, other medical conditions you have, and how you respond to diabetes treatment. This information is not intended to replace advice given to you by your health care provider. Make sure you discuss any questions you have with your health care provider. Document Released: 10/21/2001 Document Revised: 10/06/2018 Document Reviewed: 11/26/2016 [employer] Patient Education ?? 2019 [employer]. 09/03/2020 19:17:26 Blood Glucose Monitoring, Adult Blood Glucose Monitoring, Adult Monitoring your blood sugar (glucose) is an important part of managing your diabetes (diabetes mellitus). Blood glucose monitoring involves checking your blood glucose as often as directed and keeping a record (log) of your results over time. Checking your blood glucose regularly and keeping a blood glucose log can: ??? Help you and your health care provider adjust your diabetes management plan as needed, including your medicines or insulin. ??? Help you understand how food, exercise, illnesses, and medicines affect your blood glucose. ??? Let you know what your blood glucose is at any time. You can quickly find out if you have low blood glucose (hypoglycemia) or high blood glucose (hyperglycemia). Your health care provider will set individualized treatment goals for you. Your goals will be basedon your age, other medical conditions you have, and how you respond to diabetes treatment. Generally, the goal of treatment is to maintain the following blood glucose levels: ??? Before meals (preprandial): 80???130 mg/dL (4.4???7.2 mmol/L). ??? After meals (postprandial): below 180 mg/dL (10 mmol/L). ??? A1c level: less than 7%. Supplies needed: ??? Blood glucose meter. ??? Test strips for your meter. Each meter has its own strips. You must use the strips that came with your meter. ??? A needle to prick your finger (lancet). Do not use a lancet more than one time. ??? A device that holds the lancet (lancing device). ??? A journal or log book to write down your results. How to check your blood glucose 1. Wash your hands with soap and water. 2. Prick the side of your finger (not the tip) with the lancet. Use a different finger each time. 3. Gently rub the finger until a small drop of blood appears. 4. Follow instructions that come with your meter for inserting the test strip, applying blood to the strip, and using your blood glucose meter. 5. Write down your result and any notes. Some meters allow you to use areas of your body other than your finger (alternative sites) to test your blood. The most common alternative sites are: ??? Forearm. ??? Thigh. ??? Palm of the hand. If you think you may have hypoglycemia, or if you have a history of not knowing when your blood glucose is getting low (hypoglycemia unawareness), do not use alternative sites. Use your finger instead. Alternative sites may not be as accurate as the fingers, because blood flow is slower in these areas. This means that the result you get may be delayed, and it may be different from the result thatyou would get from your finger. Follow these instructions at home: Blood glucose log ??? Every time you check your blood glucose, write down your result. Also write down any notes about things that may be affecting your blood glucose, such as your diet and exercise for the day. This information can help you and your health care provider: ??? Look for patterns in your blood glucose over time. ??? Adjust your diabetes management plan as needed. ??? Check if your meter allows you to download your records to a computer. Most glucose meters store a record of glucose readings in the meter. If you have type 1 diabetes: ??? Check your blood glucose 2 or more times a day. ??? Also check your blood glucose: ??? Before every insulin injection. ??? Before and after exercise. ??? Before meals. ??? 2 hours after a meal. ??? Occasionally between 2:00 a.m. and 3:00 a.m., as directed. ??? Before potentially dangerous tasks, like driving or using heavy machinery. ??? At bedtime. ??? You may need to check your blood glucose more often, up to 6???10 times a day, if you: ??? Use an insulin pump. ??? Need multiple daily injections (MDI). ??? Have diabetes that is not well-controlled. ??? Are ill. ??? Have a history of severe hypoglycemia. ??? Have hypoglycemia unawareness. If you have type 2 diabetes: ??? If you take insulin or other diabetes medicines, check your blood glucose 2 or more times a day. ??? If you are on intensive insulin therapy, check your blood glucose 4 or more times a day. Occasionally, you may also need to check between 2:00 a.m. and 3:00 a.m., as directed. ??? Also check your blood glucose: ??? Before and after exercise. ??? Before potentially dangerous tasks, like driving or using heavy machinery. ??? You may need to check your blood glucose more often if: ??? Your medicine is being adjusted. ??? Your diabetes is not well-controlled. ??? You are ill. General tips ??? Always keep your supplies with you. ??? If you have questions or need help, all blood glucose meters have a 24-hour hotline phone number that you can call. You may also contact your health care provider. ??? After you use a few boxes of test strips, adjust (calibrate) your blood glucose meter by following instructions that came with your meter. Contact a health care provider if: ??? Your blood glucose is at or above 240 mg/dL (13.3 mmol/L) for 2 days in a row. ??? You have been sick or have had a fever for 2 days or longer, and you are not getting better. ??? You have any of the following problems for more than 6 hours: ??? You cannot eat or drink. ??? You have nausea or vomiting. ??? You have diarrhea. Get help right away if: ??? Your blood glucose is lower than 54 mg/dL (3 mmol/L). ??? You become confused or you have trouble thinking clearly. ??? You have difficulty breathing. ??? You have moderate or large ketone levels in your urine. Summary ??? Monitoring your blood sugar (glucose) is an important part of managing your diabetes (diabetes mellitus). ??? Blood glucose monitoring involves checking your blood glucose as often as directed and keeping a record (log) of your results over time. ??? Your health care provider will set individualized treatment goals for you. Your goals will be based on your age, other medical conditions you have, and how you respond to diabetes treatment. ??? Every time you check your blood glucose, write down your result. Also write down any notes about things that may be affecting your blood glucose, such as your diet and exercise for the day. This information is not intended to replace advice given to you by your health care provider. Make sure you discuss any questions you have with your health care provider. Document Released: 10/26/2004 Document Revised: 08/17/2019 Document Reviewed: 04/04/2017 [employer] Patient Education ?? 2019 [employer] Follow Up Care 09/03/2020 16:30:43 With:Return to Emergency Department Address:Unknown When:1 to 2 days Comments:Return to ED if symptoms worsen With:Kika Kumar Address:Unknown When:1 to 2 days Comments:Call for followup appointment, call your threading machine tender regarding follow-up.
--- OUTSIDE RECORDS SUMMARY | 2023-12-06 16:49 | XMS_ITS | Continuity of Care Document ---
Author Name Unknown Organization [facility] ter Address [address] [place] [id number]- Care Team Providers Care Director Trading Name Role Phone Sunil Giron MD Primary Care Physician Encounter [facility] [place](s[place] 01/04/20 - 01/14/[address] [id number]- [facility] Attending Physician: AdmAntonia mcclellan Admitting Physician: AdmtrAntonia Referring Physician: Admtr, Ar8 Allergies, Adverse Reactions, Alerts Substance Reaction Severity Status NKA Active Medications Admelog 100 units/mL injectable solution See Instructions, Use to infuse via insulin pump 45 units daily, E10.9, # 20 mL, 6 Refills, Maintenance, 12/04/19 10:16:00 EST, [id number], 170, cm, 09/18/19 11:03:00 EST, [...] x 8 mm (5/16in) See Instructions, # 180 each, Refills 3, Tot. Refills 3, Maintenance, for use with humalog and lantus insulin 6 times daily E10.65, 09/18/18 9:22:31 EST, Compound Start Date: 09/18/18 Status: Ordered Insulin Syringe, BD Ultra-Fine 0.5 cc 31 G x 8 mm (516in) See Instructions, Refills 1, Tot. Refills 1, [...] Solution Start Date: 09/18/18 Status: Ordered Pen [place], 31 G x 8 mm BD Ultra [...]
--- OUTSIDE RECORDS SUMMARY | 2023-12-06 16:49 | XMS_ITS | Continuity of Care Document ---
Author Name Unknown Organization [facility] Address [address] [place] [id number]- Care Team Providers Care Project Management Analyst Name Role Phone Sunil Giron MD Primary Care Physician [place] [facility] [place]20 [facility] [address] [place] [id number]- [facility] Attending Physician: Admtr, Saurav8 Admitting Physician: [id number] Referring Physician: Admtr, Ar8 Allergies, Adverse Reactions, Alerts Substance Reaction Severity Status NKA Active Medications Admelog 100 units/mL injectable solution See Instructions, Use to infuse via insulin pump 45 units daily, E10.9, # 20 mL, 6 Refills, Maintenance, 12/04/19 10:16:00 EST, [id number], 170, cm, 09/18/19 11:03:00 [...] Solution Start Date: 09/18/18 Status: Ordered Pen [place], 31 G x 8 mm BD Ultra [...]
--- OUTSIDE RECORDS SUMMARY | 2023-12-06 16:49 | XMS_ITS | Continuity of Care Document ---
Author Name Unknown Organization [facility] Address [address] [place] [address]- Care Team Providers Care Pork Cutlet Maker Name Role Phone Not on Staff, PCP Primary Care Physician Unavail able [place]counter [facility] [place] Date(s): 11/17/22 - 11/17/[address] [address]- Discharge Disposition: A-D/C Home Attending Physician: Toribio Silva MD Admitting Physician: Toribio Silva MD Referring Physician: Not on Staff, Referring MD Allergies, Adverse Reactions, Alerts No Known Allergies Medications Augmentin 875 mg-125 mg oral tablet 1 tablet, By Mouth, Every 12 hours, for 10 days, # 20 tablet, 0 Refills, Acute 11/27/22 23:12:00 EST, 11/17/22 23:12:00 EST, Tablet, [id number], Partial fill upon patient request if the prescription is for a schedule II opioid drug., 169, cm,... Start Date: 11/17/22 Stop Date: 11/27/22 Status: Ordered Basaglar KwikPen 100 units/mL subcutaneous [...] Dry Weight Start Date: 04/23/22 Status: Ordered ibuprofen 600 mg oral tablet 600 mg, 1, tablet, By Mouth, 3 times a day, for 7 days, # 21 tablet, Refills 0, Tot. Refills 0, Acute 11/24/22 23:14:00 EST, 11/17/22 23:14:00 EST, Route to Pharmacy Electronically, [facility]/pharmacy #[id number], Partial fill upon patient request if the prescrip... Start Date: 11/17/22 Stop Date: 11/24/22 Status: Ordered Insulin Syringe, BD Ultra-Fine 0.5 [...] mL, 5 Refills, Maintenance, 04/23/22 10:57:00 EDT, [facility]/pharmacy #[id number], Partial fill upon patient request if the prescription is for a schedule II... Start Date: 04/23/22 Stop Date: 10/20/22 Status: Ordered OxyCODONE IR Tablet 5 mg, Tablet, By Mouth, Once, STAT, 11/17/22 22:50:00 EST, Stop date 11/17/22 22:50:00 EST Start Date: 11/17/22 Stop Date: 11/17/22 Status: Completed Pen [place], 31 G x 8 mm BD Ultra [...] 14:07:09, Compound Start Date: 04/09/16 Status: Ordered Toradol Inj 15 mg, Injection, IV Push Slowly, Once, STAT, 11/17/22 20:41:00 EST, Stop date 11/17/22 20:41:00 EST Start Date: 11/17/22 Stop Date: 11/17/22 Status: Completed Wellbutrin SR 100 mg oral tablet, extended [...] Active Type 1 diabetes mellitus Confirmed Active Results Orders for Microbiology Reports Name Date Blood Culture 11/17/22 Blood Culture #2 11/17/22 Microbiology Reports TEST:Blood Culture, Second Order STATUS:Unauthenticated BODY SITE: SOURCE:Blood COLLECTED DATE/TIME:11/17/22 9:06 PM Blood Culture, Second Order SPECIMEN DESCRIPTION : BLOOD R ARM SPECIAL REQUESTS : NONE REPORT STATUS : PRELIMINARY REPORT TEST:Blood Culture STATUS:Unauthenticated BODY SITE: SOURCE:Blood COLLECTED DATE/TIME:11/17/22 9:04 PM Blood Culture SPECIMEN DESCRIPTION : BLOOD RAC SPECIAL REQUESTS : NONE REPORT STATUS : PRELIMINARY REPORT Vital Signs Most recent to oldest [Reference Range]: 1 2 3 Height 169 cm (11/17/22 11: PM) 169 cm (11/17/22 8:03 PM) Weight 69.5 kg (11/17/22 11: PM) 69.5 kg (11/17/22 8:03 PM) Oxygen Saturation [94-100 %] 100 % (11/17/22 9:21 PM) 98 % (11/17/22 8:03 PM) Pulse Rate [55-90 bpm] 80 bpm (11/17/22 9:21 PM) 86 bpm (11/17/22 8:03 PM) Blood Pressure [90-138/55-84 mm Hg] 143/88mm Hg *H* (11/17/22 9:21 PM) 131/118mm Hg (11/17/22 8:03 PM) Respiratory Rate [16-30 br/min] 14 br/min *L* (11/17/22 10:52 PM) 16 br/min (11/17/22 9:23 PM) 16 br/min (11/17/22 9:21 PM) Temperature [96.8-100.4 DegF] 99.1 DegF (11/17/22 8:03 PM) Mode of Delivery (Oxygen) Room air (11/17/22 9:21 PM) Room air (11/17/22 8:03 PM) Temperature Route Oral (11/17/22 8:03 PM) Dry Weight 69.5 kg (11/17/22 11:23 PM) 69.5 kg (11/17/22 8:03 PM) Weight Obtained Via Standing scale (11/17/22 8:03 PM) Social History Social History Type Response Smoking Status Current every day brinda paniagua entered on: 05/13/16 Sex Note * Toribio Silva MD: PERFORM, SIGN, VERIFY Event Display: Patient Education Handout Authored Date: [id number] * Toribio Silva MD: PERFORM Event Display: Patient Education Leaflets Authored Date: [id number] Ibuprofen Oral Tablet ?? [id number] Ibuprofen Oral Tablet Brands: Addaprin, Advil, Counteract IB, Genpril, Ibu, Ibuprohm, Ibutab, Motrin, Proprinal, Naif 8, Wal-Profen Uses This medicine is used for the following purposes: ??? arthritis ??? fever ??? gout ??? pain ?? Instructions Take the medicine with 250 mL (1 cup) of water. Sit or stand upright for 10 minutes after taking the medicine. Do not lie down. You may take with food to prevent stomach upset. Keep the medicine at room temperature. Avoid heat and direct light. Drink plenty of water while on this medicine. This medicine may cause you to become more sensitive to the sun. Use sunscreen or wear protective clothing when you are exposed to the sun. Drug interactions can change how medicines work or increase risk for side effects. Tell your healthcare providers about all medicines taken. Include prescription and aknv-nky-dbreuyc medicines, vitamins, and herbal medicines. Speak with your doctor or pharmacist before starting or stopping any medicine. Tell your doctor if symptoms do not get better or if they get worse. Talk to your doctor before taking other medicines, including aspirins and ibuprofen containing products. Speak to your doctor about which medicines are safe to use while you are on this medicine. ?? Cautions Tell your doctor and pharmacist if you ever had an allergic reaction to a medicine. This medicine is associated with an increased risk of serious heart problems, heart attack, and stroke. Please speak with your doctor about the risks and benefits of using this medicine. Contact yourdoctor immediately if you experience chest pain or difficulty breathing. This medicine may cause serious bleeding from the stomach or bowels. Stop this medicine and call your doctor immediately if you see any signs of bleeding. Bleeding can cause pain in the stomach, vomiting up liquid that looks like coffee grounds, and red or dark tarry stools. Do not use the medication any more than instructed. Your ability to stay alert or to react quickly may be impaired by this medicine. Do not drive or operate machinery until you know how this medicine will affect you. Please check with your doctor before drinking alcohol while on this medicine. Avoid smoking while on this medicine. Smoking may increase your risk for stroke, heart attack, blood clots, high blood pressure, and other diseases of the heart and blood vessels. This medicine passes into breast milk. Ask your doctor before . This medicine can hurt a new baby in the womb. If you become while on this medicine, tell your doctor immediately. Your doctor may switch you to a different medicine. Do not share this medicine with anyone who has not been prescribed this medicine. Some patients have serious side effects from this medicine. Ask your pharmacist to show you the information from the Food and Drug Administration (FDA) and discuss it with you. ?? Side Effects The following is a list of some common side effects from this medicine. Please speak with your doctor about what you should do if you experience these or other side effects. ??? constipation or diarrhea ??? dizziness ??? excess gas ??? high blood pressure ??? nausea and vomiting ??? stomach upset or abdominal pain Call your doctor or get medical help right away if you notice any of these more serious side effects: ??? bleeding or bruising ??? chest or jaw pain ??? coughing up blood or vomit that looks like coffee grounds ??? swelling of the legs, feet, and hands ??? fever ??? swelling in the neck or throat ???signs of kidney damage (such as change in urine color or bubbly urine) ??? signs of liver damage (such as yellowing of eye or skin, dark urine, or unusual tiredness) ??? mood changes ??? ringing in the ears ??? shortness of breath ??? dark, tarry stool ??? symptoms of stroke (such as one-sided weakness, slurred speech, confusion) ??? excessive or unusual sweating ??? blurring or changes of vision??? severe or persistent vomiting ??? sudden or unexplained weight gain A few people may have an allergic reaction to this medicine. Symptoms can include difficulty breathing, skin rash, itching, swelling, or severe dizziness. If you notice any of these symptoms, seek medical help quickly. ?? Extra Please speak with your doctor, nurse, or pharmacist if you have any questions about this medicine. ?? [email or web address] IMPORTANT NOTE: This document tells you briefly how to take your medicine, but it does not tell youall there is to know about it. Your doctor or pharmacist may give you other documents about your medicine. Please talk to them if you have any questions. Always follow their advice. There is a more complete description of this medicine available in [place]. Scan this code on your smartphone or tablet or use the web address below. You can also ask your pharmacist for a printout. If you have any questions, please ask your pharmacist. The display and use of this drug information is subject to Terms of Use. Copyright(c) 2021 [employer]. ?? The [employer]. All rights reserved. This information is not intended as a substitute for professional medical care. Always follow your healthcare professional's instructions. ?? * Toribio Silva MD: PERFORM Event Display: Patient Education Leaflets Authored Date: [id number] Oxycodone Oral Tablet ?? [id number] Oxycodone Oral Tablet Brands: Roxicodone Uses For pain. ?? Instructions This medicine may be taken with or without food. Swallow with a full glass (8 oz) of water unless your doctor gives you different instructions. Store at room temperature away from heat, light, and moisture. Do not keep in the bathroom. Please ask your doctor, nurse, or pharmacist how to discard unused medicines safely. To reduce constipation, eat high fiber foods, drink plenty of water and exercise. Avoid grapefruit juice while on this medicine. Drug interactions can change how medicines work or increase risk for side effects. Tell your healthcare providers about all medicines taken. Include prescription and ttta-hvc-adctevb medicines, vitamins, and herbal medicines. Speak with your doctor or pharmacist before starting or stopping any medicine. Tell your doctor if symptoms do not get better or if they get worse. ?? Cautions This medicine has an opioid. Opioids help many people but may cause addiction, especially if used for a long time. The addiction risk is higher if you have a substance use disorder (overuse of or addiction to drugs or alcohol). Ask your doctor about the benefits and risks. Ask your doctor or pharmacist if you should have naloxone on hand to treat opioid overdose. Teach your family or household members about the signs of an opioid overdose and how to treat it. If you stop this medicine suddenly, after using it regularly for a long time, you may have withdrawal symptoms. Your doctor may ask you to slowly reduce your dose before stopping it. Tell your doctorright away if you notice any symptoms of withdrawal. Withdrawal symptoms can include unusual sweating, watering eyes, runny nose, chills, stomach pain, diarrhea, yawning, muscle aches, irritability, restlessness, anxiety, trouble sleeping, or thoughts of suicide. Tell your doctor and pharmacist if you ever had an allergic reaction to a medicine. Do not use the medication any more than instructed. This medicine may cause dizziness or fainting, especially after exercising or in hot weather. Be very careful when standing or sitting up quickly. If possible, avoid using with marijuana or other medicines that can cause dizziness or drowsiness. These include allergy/cold products, muscle relaxers, sleep aids, and pain relievers. Your ability to stay alert or to react quickly may be impaired by this medicine. Do not drive or operate machinery until you know how this medicine will affect you. Do not drink beverages with alcohol while on this medicine. This medicine passes into breast milk. Ask your doctor before . This medicine can hurt a new baby in the womb. If you become while on this medicine, tell your doctor immediately. Your doctor may switch you to a different medicine. This medicine should be used with caution in patients with breathing difficulties. Call your doctor right away if you notice slow or shallow breathing. Do not share this medicine with anyone who has not been prescribed this medicine. Some patients have serious side effects from this medicine. Ask your pharmacist to show you the information from the Food and Drug Administration (FDA) and discuss it with you. ?? Side Effects The following is a list of some common side effects from this medicine. Please speak with your doctor about what you should do if you experience these or other side effects. ??? decreased appetite ??? constipation ??? dizziness or drowsiness ??? lightheadedness ??? nausea and vomiting If you have any of the following side effects, you may be getting too much medicine. Please contactyour doctor to let them know about these side effects. ??? confusion ??? fainting ??? unusual or unexplained tiredness or weakness ??? difficulty or discomfort urinating Call your doctor or get medical help right away if you notice any of these more serious side effects: ??? agitated feeling or trouble sleeping ??? decreased awareness or responsiveness ??? breathing interruption during sleep ??? shallow, irregular breathing ??? hallucinations (unusual thoughts, seeing or hearing things that are not real) ??? seizures ??? severe stomach or bowel pain ??? weight loss A few people may have an allergic reaction to this medicine. Symptoms can include difficulty breathing, skin rash, itching, swelling, or severe dizziness. If you notice any of these symptoms, seek medical help quickly. ?? Extra Please speak with your doctor, nurse, or pharmacist if you have any questions about this medicine. ?? [email or web address] IMPORTANT NOTE: This document tells you briefly how to take your medicine, but it does not tell youall there is to know about it. Your doctor or pharmacist may give you other documents about your medicine. Please talk to them if you have any questions. Always follow their advice. There is a more complete description of this medicine available in [place]. Scan this code on your smartphone or tablet or use the web address below. You can also ask your pharmacist for a printout. If you have any questions, please ask your pharmacist. The display and use of this drug information is subject to Terms of Use. Copyright(c) 2021 [employer]. ?? The [employer]. All rights reserved. This information is not intended as a substitute for professional medical care. Always follow your healthcare professional's instructions. ?? * Toribio Silva MD: PERFORM Event Display: Patient Education Leaflets Authored Date: [id number] Amoxicillin/Clavulanate Oral Tablet ?? [address] Amoxicillin/Clavulanate Oral Tablet Brands: Augmentin Uses For treating bacterial infection. ?? Instructions Take the medicine with food. Keep the medicine at room temperature. Avoid heat and direct light. It is important that you keep taking each dose of this medicine on time even if you are feeling well. If you forget to take a dose on time, take it as soon as you remember. If it is almost time for thenext dose, do not take the missed dose. Return to your normal dosing schedule. Do not take 2 doses of this medicine at one time. Tell your doctor and pharmacist about all your medicines. Include prescription and qhcv-jrh-yefltsobdilqxeyl, vitamins, and herbal medicines. Keep using this medicine for the full number of days that it is prescribed. Do not stop the medicine even if you start to feel better. If you have diabetes and use urine glucose tests, this medicine may cause incorrect results. Pleasecheck with your doctor before making any changes to your diabetes treatment plan. ?? Cautions Tell your doctor and pharmacist if you ever had an allergic reaction to a medicine. Do not use the medication any more than instructed. Please tell your doctor if you have moderate to severe diarrhea while on this medicine. Do not treat the diarrhea with lvhj-dtd-gdvkwqu diarrhea medicine. Tell the doctor or pharmacist if you are , planning to be , or . Do not start or stop any other medicines without first speaking to your doctor or pharmacist. Do not share this medicine with anyone who has not been prescribed this medicine. ?? Side Effects The following is a list of some common side effects from this medicine. Please speak with your doctor about what you should do if you experience these or other side effects. ??? diarrhea ??? nausea and vomiting ??? stomach upset or abdominal pain Call your doctor or get medical help right away if you notice any of these more serious side effects: ??? severe or persistent abdominal pain ??? severe, watery or bloody diarrhea ??? signs of liver damage (such as yellowing of eye or skin, dark urine, or unusual tiredness) ??? red, burning, or itchyskin ??? yeast infection of mouth ??? vaginal itching or discharge A few people may have an allergic reaction to this medicine. Symptoms can include difficulty breathing, skin rash, itching, swelling, or severe dizziness. If you notice any of these symptoms, seek medical help quickly. ?? Extra Please speak with your doctor, nurse, or pharmacist if you have any questions about this medicine. ?? [email or web address] IMPORTANT NOTE: This document tells you briefly how to take your medicine, but it does not tell youall there is to know about it. Your doctor or pharmacist may give you other documents about your medicine. Please talk to them if you have any questions. Always follow their advice. There is a more complete description of this medicine available in [place]. Scan this code on your smartphone or tablet or use the web address below. You can also ask your pharmacist for a printout. If you have any questions, please ask your pharmacist. The display and use of this drug information is subject to Terms of Use. Copyright(c) 2021 [employer]. ?? The [employer]. All rights reserved. This information is not intended as a substitute for professional medical care. Always follow your healthcare professional's instructions. ?? Patient Care team information Care Team Personnel Name: Not on Staff, PCP Position: [facility] Physician (General Medicine) Member Role: PCP Name: Toribio Silva MD Position: [facility] ED Medicine MD Member Role: Admitting Physician Address: Address: [address] [place] [address] Name: Arun West RN Position: [facility] ED RN W/OE and Tasks Member Role: Patient Care Provider Care Team Related Persons Name: NIEVES BARGER Address: [place] [address] Name: DL BARGER Address: home [address] [place] [address]
--- OUTSIDE RECORDS SUMMARY | 2023-12-06 16:49 | XMS_ITS | Continuity of Care Document ---
Author Name Unknown Organization [facility] Address [address] [place] [address]- Care Team Providers Care Canoe Builder Name Role Phone Not on Staff, PCP Primary Care Physician Unavail able Encounter [facility] [place] Date(s): 08/22/23 - 09/21/23 [facility] [address] [place] [id number] Allergies, Adverse Reactions, Alerts No Known Allergies [...] mL, 3 Refills, Maintenance, 06/23/23 8:34:00 EDT, [facility]/pharmacy #[id number], Partial fill upon patient request if the prescription is for a schedule II opioi... Start Date: 06/23/23 Stop Date: 10/21/23 Status: Ordered Pen [place], 31 G x 8 mm BD Ultra [...] List Condition Confirmation Course Effective Dates Status [facility] atus Informant Carpal tunnel syndrome - bilateral [...] Persons Name: NIEVES BARGER Address: [place] [address] Name: DL BARGER Address: home [address] [place] [id number]
--- OUTSIDE RECORDS SUMMARY | 2023-12-06 16:49 | XMS_ITS | Continuity of Care Document ---
Author Name Unknown Organization [facility] Address [address] [place] [address]- Care Team Providers Care Cloth Weigher Name Role Phone Not on Staff, PCP Primary Care Physician Unavail able Encounter [facility] Date(s): 06/23/23 - 07/23/23 [facility] [address] [place] [id number]- Allergies, Adverse Reactions, Alerts No Known Allergies [...] Refills, Maintenance, 06/23/23 8:34:00 EDT, [facility]/pharmacy #[id number], Partial fill upon patient request if the prescription is for a schedule II opioi... Start Date: 06/23/23 Stop Date: 10/21/23 Status: Ordered Pen [place], 31 G x 8 mm BD Ultra [...] Persons Name: NIEVES BARGER Address: [place] [address] Name: DL BARGER Address: home [address] [place] [id number]
--- OUTSIDE RECORDS SUMMARY | 2023-12-06 16:49 | XMS_ITS | Continuity of Care Document ---
Author Name Unknown Organization [facility] ter Address [address] [place] [address]- Care Team Providers Care Gravedigger Name Role Phone Sunil Giron MD Primary Care Physician [phone] Encounter [facility] [place] Date(s): 11/28/19 - 02/03/[address] [address]- [facility] Attending Physician: Snuil Giron MD Admitting Physician: Sunil Giron MD Referring Physician: Julia ALTMAN, Sherlyn Adrian Allergies, Adverse Reactions, Alerts Substance Reaction Severity Status NKA Active Medications Admelog 100 units/mL injectable solution See Instructions, Use to infuse via insulin pump 45 units daily, E10.9, # 20 mL, 6 Refills, Maintenance, 12/04/19 10:16:00 EST, [id number], 170, cm, 09/18/19 11:03:00 [...] x 8 mm (16in) See Instructions, # 180 each, Refills 3, [...] Solution Start Date: 09/18/18 Status: Ordered Pen [place], 31 G x 8 mm BD Ultra [...]
--- OUTSIDE RECORDS SUMMARY | 2023-12-06 16:49 | XMS_ITS | Continuity of Care Document ---
Author Name Unknown Organization [facility] Address [address] [place] [address]- Care Team Providers Care Band Cutting Machine Operator Name Role Phone Sunil Giron MD Primary Care Physician [place] [facility] [place]/26/[place] - 01/26/[address] [address]- Encounter Diagnosis Abscess(Final) - 01/26/21 Discharge Disposition: A-D/C Home Attending Physician: Flora Holder MD Admitting Physician: Flora Holder MD Referring Physician: Not on Staff, Referring MD Allergies, Adverse Reactions, Alerts Substance Reaction [...] 09/22/20 Stop Date: 03/21/21 Status: Ordered Pen [place], 31 G x 8 mm BD Ultra [...] acne(Confirmed) Active Type 1 diabetes mellitus(Confirmed) Active Vital Signs Most recent to oldest [Reference Range]: 1 2 Height 170 cm (01/26/21 1:30 PM) 170 cm (01/26/21 12:12 PM) Weight 73 kg (01/26/21 1:30 PM) 73 kg (01/26/21 12:12 PM) Oxygen Saturation [94-100 %] 96 % (01/26/21 1:30 PM) 97 % (01/26/21 12:12 PM) Pulse Rate [55-90 bpm] 62 bpm (01/26/21 1:30 PM) 84 bpm (01/26/21 12:12 PM) Body Mass Index [18.5-24.99] 25.26 *H* (01/26/21 1:30 PM) Blood Pressure [90-138/55-84 mm Hg] 141/ 103mm Hg *H* (01/26/21 1:30 PM) 128/83mm Hg (01/26/21 12:12 PM) Respiratory Rate [16-30 br/min] 18 br/mi n (01/26/21 1:30 PM) 18 br/min (01/26/21 12:12 PM) Temperature [96.8-100.4 DegF] 97.7 DegF (01/26/21 12:12 PM) Mode of Delivery (Oxygen) Room air (01/26/21 1:30 PM) Room air (01/26/21 12:12 PM) Blood pressure sites Arm, right (01/26/21 1:30 PM) Temperature Route Oral (01/26/21 12:12 PM) Dry Weight 73 kg (01/26/21 1:30 PM) 73 kg (01/26/21 12:12 PM) Social History Social History Type Response Smoking Status Current every day brinda paniagua entered on: 05/13/16 Sex
--- OUTSIDE RECORDS SUMMARY | 2023-12-06 16:50 | XMS_ITS | Continuity of Care Document ---
Author Name Unknown Organization [facility] Address [address] [place] [address]- Care Team Providers Care Rolloff Driver Name Role Phone Not on Staff, PCP Primary Care Physician Unavail able Encounter [facility] [place] Date(s): 01/21/22 - 05/21/22 [facility] [address] [place] [id number] Attending Physician: Eran Ro MD Admitting Physician: Eran Ro MD Allergies, Adverse Reactions, Alerts No Known [...] 04/23/22 Stop Date: 10/20/22 Status: Ordered Pen [place], 31 G x 8 mm BD Ultra [...]
--- OUTSIDE RECORDS SUMMARY | 2023-12-06 16:50 | XMS_ITS | Continuity of Care Document ---
Author Name Unknown Organization [facility] Address [address] [place] [address]- Care Team Providers Care Investigations Consultant Name Role Phone Sunil Giron MD Primary Care Physician [place] [facility] [place]/28/21 - 01/28/[address] [address]- Encounter Diagnosis Pilonidal cyst(Final) - 01/28/21 Discharge Disposition: A-D/C Home Attending Physician: Enrico Edmond MD Admitting Physician: Enrico Edmond MD Referring Physician: Not on Staff, Referring [...] 09/22/20 Stop Date: 03/21/21 Status: Ordered Pen [place], 31 G x 8 mm BD Ultra [...] Most recent to oldest [Reference Range]: 1 Height 170 cm (01/28/21 11:40 AM) Weight 73 kg (01/28/21 11:40 AM) Oxygen Saturation [94-100 %] 100 % (01/28/21 11:40 AM) Pulse Rate [55-90 bpm] 80 bpm (01/28/21 11:40 AM) Blood Pressure [90-138/55-84 mm Hg] 124/ 79mm Hg (01/28/21 11:40 AM) Respiratory Rate [16-30 br/min] 18 br/mi n (01/28/21 11:40 AM) Temperature [96.8-100.4 DegF] 97.9 DegF (01/28/21 11:40 AM) Mode of Delivery (Oxygen) Room air (01/28/21 11:40 AM) Blood pressure sites Arm, right (01/28/21 11:40 AM) Temperature Route Oral (01/28/21 11:40 AM) Dry Weight 73 kg (01/28/21 11:40 AM) Dry Weight Obtained Via Patient/family s tated (01/28/21 11:40 AM) Social History Social History Type Response Smoking Status Current every day brinda paniagua entered on: 05/13/16 Sex
[2023-12-06 16:57] LABS: MANUAL DIFF FLAG NO
[2023-12-06 17:06] LABS: COVID-19 Test Negative (Negative); IDNOW Serial# 152EDE1D
[2023-12-06 17:08] LABS: Amphetamine Screen Urine Not Detected (Not Detect); Barbiturates, Urine Not Detected (Not Detect); Benzodiazepines Screen Urine Not Detected (Not Detect); Cannabinoid Screen Urine Not Detected (Not Detect); Cocaine Screen Urine Not Detected (Not Detect); Fentanyl, urine Not Detected (Not Detect); Opiate Screen Urine Not Detected (Not Detect); Phencyclidine Screen Urine Not Detected (Not Detect)
[2023-12-06 17:13] LABS: Appearance Urine Clear; Color Urine Yellow; Glucose Urine UA >=1000 mg/dL (Negative); Leukocyte Esterase Urine Negative (Negative); Nitrite Urine Negative (Negative); UMIC TRIGGER UACC YES; Urine Blood Negative (Negative); Urine Ketones Negative (Negative); Urine Protein 30 (1+) mg/dL (Neg-Trace)
[2023-12-06 17:19] LABS: Acetaminophen LAB < 3 mcg/mL (<30); Salicylate < 5.0 mg/dL (15-30)
[2023-12-06 17:20] LABS: Basophils Percent Auto 0.5 % (0-2); Eosinophils Absolute Auto 0.2 X10*3/uL (0.0-0.4); Eosinophils Percent Auto 2.7 % (0-4); Hemoglobin 14.9 g/dl (14.0-18.0); Imm Gran Abs Auto 0.03 X10*3/uL (0.00-0.03); Imm Gran Pct Auto 0.4 % (0.0-0.4); Lymphocytes Absolute Auto 2.1 X10*3/uL (1.2-4.9); Mean Corpuscular HGB Conc 35.5 g/dl (31.0-36.0); Mean Corpuscular Hemoglobin 28.2 pg (27.0-33.0); Mean Corpuscular Volume 79.4 fL (80.0-98.0); Mean Platelet Volume 9.1 fL (9.4-12.4); Monocytes Absolute Auto 0.5 X10*3/uL (0.1-1.2); Monocytes Percent Auto 6.3 % (2-11); Neutrophils Absolute Auto 4.9 x10*3/uL (2.0-8.3); Neutrophils Percent Auto 63.1 % (45-73); Platelet Count 305 X10*3/uL (160-400); Red Blood Count 5.29 X10*6/uL (4.60-5.80); Red Cell Distribution Width 12.5 % (11.0-16.0); White Blood Count 7.8 X10*3/uL (4.8-10.8)
[2023-12-06 17:21] LABS: Alanine Aminotransferase 12 U/L (0-40); Albumin Level 4.2 g/dL (3.5-5.0); Alkaline Phosphatase 78 U/L (39-117); Anion Gap 12 (12-20); Aspartate Amino Transferase 15 U/L (5-37); Bilirubin Total 0.6 mg/dL (0.0-1.0); Blood Urea Nitrogen 11 mg/dL (9-16); Calcium 9.6 mg/dL (8.4-10.2); Carbon Dioxide 26 mmol/L (22-29); Chloride 101 mmol/L (96-108); Creatinine Clr Calc Pharmacy 76.9; Estimated Glomerular Filt Rate > 60; Ethanol < 10 mg/dL; Glucose Random 373 mg/dL (60-115); Potassium 4.1 mmol/L (3.3-5.1); Sodium 135 mmol/L (135-145); Total Protein 7.9 g/dL (6.5-8.0)
[2023-12-06 17:25] LABS: Bacteria Urine None Seen (None Seen); Hyaline Casts Urine 0-2 /LPF (0-2); RBC Urine 0-2 /HPF (0-2); Squamous Epithelial Cell Urine 0-2 /HPF (0-2); WBC Urine 0-5 /HPF (0-5)
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
--- NOTE | 2023-12-06 18:38 | PC.NURSE ---
POC at 1836 is 154 MD updated,
[2023-12-06 18:39] LABS: Glucose, Whole Blood 154 mg/dL (60-115)
[2023-12-06 20:59] VITALS: BP 122/82; PULSE 80; RESP 16; TEMP 36.8; O2SAT 98
[2023-12-06] MEDS: LORazepam 1 MG TABLET 2 MG PO (21:31)
[2023-12-06] MEDS: Nicotine 21 MG PATCH.TD24 TRANSDERMA (21:39)
[2023-12-06 21:49] LABS: Glucose, Whole Blood 145 mg/dL (60-115)
[2023-12-06 22:42] LABS: Glucose, Whole Blood 145 mg/dL (60-115)
[2023-12-06] MEDS: Insulin Glargine,Hum.rec.anlog 100 UNIT/ML 10 ML VIAL 30 UNIT SUBCUT (23:23)
--- NOTE | 2023-12-07 | ECG_ITS ---
Test Reason : QTC CHECK Blood Pressure : / mmHG Vent. Rate : 073 BPM Atrial Rate : 073 BPM P-R Int : 138 ms QRS Dur : 080 ms QT Int : 366 ms P-R-T Axes : 029 061 049 degrees QTc Int : 403 ms Normal sinus rhythm Normal ECG No previous ECGs available Referred By: Mary Salinas Electronically Signed By:OCTAVIA PEREZ MD
[2023-12-07 06:00] VITALS: BP 104/60; PULSE 73; RESP 16; TEMP 36.6; O2SAT 97
--- NOTE | 2023-12-07 07:53 | PC.NURSE ---
Report taken from Phyllis CONNOLLY, assumed care of pt at 0700. Pt resting on bed eyes closed, skin pwd respirations even unlabored. Safety maintained in BH pod. IPBS continues.
[2023-12-07 09:07] LABS: Glucose, Whole Blood 200 mg/dL (60-115)
[2023-12-07] MEDS: Nicotine 21 MG PATCH.TD24 TRANSDERMA (09:08)
[2023-12-07] MEDS: Insulin Lispro 100 UNIT/ML 3 ML VIAL SUBCUT ×3 (09:09→21:01)
--- NOTE | 2023-12-07 09:19 | PC.NURSE ---
Pt medicated per MAR, 2 units insulin admin per sliding scale. Old nicotine patch removed from right upper arm and discarded, new patch placed on left upper arm. Pt offers no complaints, safety maintained in pod, IPBS continues.
--- NOTE | 2023-12-07 11:03 | PC.NURSE ---
Report given to Emily CONNOLLY, pt exits my care at this time.
[2023-12-07 12:43] LABS: Glucose, Whole Blood 86 mg/dL (60-115)
[2023-12-07 13:56] VITALS: BP 133/74; PULSE 84; RESP 16; TEMP 36.3; O2SAT 98
--- NOTE | 2023-12-07 14:15 | PC.NURSE ---
Report given to Ally on M5
--- NOTE | 2023-12-07 16:48 | PC.NURSE ---
pt arrived on a CV via wheelchair @ 1535. Skin check performed, vitals taken & wnl, menu for this evening and tomorrow completed. Admission assessment to be completed.
[2023-12-07 17:14] LABS: Glucose, Whole Blood 389 mg/dL (60-115)
[2023-12-07] MEDS: Insulin Lispro 100 UNIT/ML 3 ML VIAL 6 UNIT SUBCUT (17:55)
[2023-12-07 18:00] VITALS: BP 123/79; PULSE 86; TEMP 36.4; O2SAT 97
[2023-12-07] MEDS: OLANZapine 5 MG TABLET PO (19:06)
[2023-12-07] MEDS: Nicotine Polacrilex 2 MG GUM 4 MG BUCCAL ×2 (19:06→21:03)
[2023-12-07] MEDS: Acetaminophen 325 MG TABLET 650 MG PO (20:57)
[2023-12-07] MEDS: traZODone HCL 50 MG TABLET PO (20:57)
[2023-12-07] MEDS: Insulin Glargine,Hum.rec.anlog 100 UNIT/ML 10 ML VIAL 30 UNIT SUBCUT (20:58)
[2023-12-07 21:08] LABS: Glucose, Whole Blood 222 mg/dL (60-115)
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
[2023-12-08 08:12] LABS: Glucose, Whole Blood 162 mg/dL (60-115)
[2023-12-08] MEDS: Multivitamin TABLET 1 TAB PO (09:14)
[2023-12-08] MEDS: Nicotine 21 MG PATCH.TD24 TRANSDERMA (09:15)
[2023-12-08] MEDS: Thiamine HCL 100 MG TABLET PO (09:15)
[2023-12-08] MEDS: Insulin Lispro 100 UNIT/ML 3 ML VIAL SUBCUT ×2 (09:19→12:34)
[2023-12-08] MEDS: Nicotine Polacrilex 2 MG GUM 4 MG BUCCAL ×2 (09:19→20:05)
[2023-12-08] MEDS: hydrOXYzine HCL 25 MG TABLET PO (09:19)
[2023-12-08 09:27] LABS: Estimated Average Glucose 157 mg/dL; Hemoglobin A1c % 7.1 % (<6.0)
[2023-12-08 09:30] VITALS: BP 125/60; PULSE 67; RESP 18; TEMP 36.3; O2SAT 99
[2023-12-08 09:43] LABS: Alanine Aminotransferase 12 U/L (0-40); Albumin Level 4.1 g/dL (3.5-5.0); Alkaline Phosphatase 78 U/L (39-117); Anion Gap 12 (12-20); Aspartate Amino Transferase 17 U/L (5-37); Bilirubin Total 0.5 mg/dL (0.0-1.0); Blood Urea Nitrogen 16 mg/dL (9-16); Calcium 9.8 mg/dL (8.4-10.2); Carbon Dioxide 26 mmol/L (22-29); Chloride 106 mmol/L (96-108); Cholesterol 185 mg/dL (<200); Creatinine Clr Calc Pharmacy 93.5; Estimated Glomerular Filt Rate > 60; Glucose Fasting 151 mg/dL (60-99); HDL Cholesterol 35 mg/dL (>40); LDL Cholesterol Calculated 126 mg/dL (<100); Magnesium 1.7 mg/dL (1.6-2.6); Potassium 4.5 mmol/L (3.3-5.1); Sodium 139 mmol/L (135-145); Total Protein 8.1 g/dL (6.5-8.0); Triglycerides 124 mg/dL (<150)
[2023-12-08 09:53] LABS: Free T4 (Free Thyroxine) 0.82 ng/dL (0.71-1.85); Thyroid Stimulating Hormone 2.02 uIU/mL (0.32-4.0)
[2023-12-08 10:07] LABS: Folate 8.5 ng/mL (> or = 4.0)
[2023-12-08 10:10] VITALS: BMI 25.9
[2023-12-08 10:16] LABS: Vitamin B12 566 pg/mL (200-900)
[2023-12-08 12:19] LABS: Glucose, Whole Blood 161 mg/dL (60-115)
[2023-12-08] MEDS: LORazepam 1 MG TABLET PO ×2 (14:20→20:05)
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
[2023-12-08 18:00] VITALS: BP 121/77; PULSE 75; TEMP 36.2; O2SAT 100
[2023-12-08] MEDS: Insulin Lispro 100 UNIT/ML 3 ML VIAL 10 UNIT SUBCUT (18:09)
[2023-12-08 18:15] LABS: Glucose, Whole Blood 175 mg/dL (60-115)
[2023-12-08 21:14] LABS: Glucose, Whole Blood 316 mg/dL (60-115)
[2023-12-08] MEDS: traZODone HCL 50 MG TABLET PO (21:16)
[2023-12-08] MEDS: lamoTRIgine 25 MG TABLET PO (21:16)
[2023-12-08] MEDS: Insulin Glargine,Hum.rec.anlog 100 UNIT/ML 10 ML VIAL 30 UNIT SUBCUT (21:16)
[2023-12-08] MEDS: Insulin Lispro 100 UNIT/ML 3 ML VIAL 8 UNIT SUBCUT (21:25)
[2023-12-09 08:00] VITALS: BP 113/58; PULSE 89; RESP 18; TEMP 36.7; O2SAT 97
[2023-12-09 08:16] LABS: Glucose, Whole Blood 151 mg/dL (60-115)
[2023-12-09] MEDS: Escitalopram Oxalate 10 MG TABLET PO (08:32)
[2023-12-09] MEDS: Naltrexone HCl 50 MG TABLET PO (08:32)
[2023-12-09] MEDS: Thiamine HCL 100 MG TABLET PO (08:32)
[2023-12-09] MEDS: Nicotine 21 MG PATCH.TD24 TRANSDERMA (08:32)
[2023-12-09] MEDS: Multivitamin TABLET 1 TAB PO (08:32)
[2023-12-09] MEDS: Insulin Lispro 100 UNIT/ML 3 ML VIAL 10 UNIT SUBCUT (09:16)
[2023-12-09] MEDS: Nicotine Polacrilex 2 MG GUM 4 MG BUCCAL ×4 (09:20→21:00)
[2023-12-09] MEDS: Acetaminophen 325 MG TABLET 650 MG PO (11:40)
[2023-12-09] MEDS: LORazepam 1 MG TABLET PO (11:41)
--- NOTE | 2023-12-09 11:43 | MHC.RECOVRN ---
Met with pt on M5 after consult placed to Addiction Medicine for relapse prevention. Pt had presented to the hospital with SI with plan to overdose. Upon evaluation, pt admitted for treatment of mood disorder. Pt awake, alert, easily engages in conversation. Pt reports recovery from alcohol and cocaine x 3.5 months. Pt reports he had been drinking 30 beers daily in addition to liquor as well as using cocaine, IV, daily. Pt reports recovery from opioids x 3 years, had been using 2 bundles heroin daily. Pt reports stress related to currently being unhoused and cravings for alcohol, opioids, and cocaine. Pt reports hx naltrexone and Suboxone. Upon chart review, pt initiated naltrexone today. Pt would like to continue PO, is not interested in Vivitrol. Discussed recovery supports, pt is hoping to discharge to a care home or sober house to continue with recovery. Pt encouraged to call and inquire about bed availability and waitlists. Pt provided with written resources as well as t/w contact information if needed. Denies questions or concerns at this time. Discussed with Jessica Farmer APRN.
[2023-12-09 12:32] LABS: Glucose, Whole Blood 254 mg/dL (60-115)
[2023-12-09] MEDS: Insulin Lispro 100 UNIT/ML 3 ML VIAL 17 UNIT SUBCUT (12:49)
--- NOTE | 2023-12-09 16:13 | HO.PSYCHPN ---
Subjective Subjective Date of Service: 12/09/23 Reason For Visit: Depression, polysubstance use disorder Subjective Notes: Conditional Voluntary Healthcare Proxy: No Guardianship: No Medical Problems Affecting Mental Status: No Interim History: Tolerating medications. No adverse effects. Reading about meds/SE/Bipolar Disorder, asking appropriate questions. DM I mgt plan is proceeding. Pt has had his own plan for a sliding scale based on carb counting and glucose bolus Medication Compliance: Yes Side effects from medications: No Attending Groups: Yes Review of Systems Acute medical concerns: No Medical Review of Systems: unchanged Review of Systems Review of Systems Yes all other systems are reviewed and are negative Mental Status Exam Mental Status Exam Patient Appearance: Appropriate Patient Orientation: Person, Place, Time and Situation Level of Consciousness: Alert Patient Behavior: Talkative and Good Eye Contact Mood Description: Depressed Affect Description: Flat Patient Cognition Impaired: No Ability to Follow Directions: Good Speech Pattern: Spontaneous Speech Memory Description: Intact Hallucinations: None Delusions: Not Present Perceptual Disturbances: Depersonalization and Derealization Thought Process: Rumination and Goal Oriented Thought Content: positive for Suicidal Ideation Depressive Symptoms: Increased Anxiety, Increased Irritability, Loss of Int. in Activity, Hopelessness, Isolating-Friends/Family, Unhappiness, Low Self Esteem, Loss of Energy and Difficulty Concentrating Abnormal Motor Activity Signs and Symptoms: Restlessness Judgement: Good Diagnostics Vital Signs (24Hr): Vital Signs - 24 hr 12/08/23 18:00 12/09/23 08:00 Temperature 97.2 F 98.1 F Pulse Rate 75 89 Respiratory Rate 18 Blood Pressure 121/77 113/58 L Pulse Oximetry 100 97 Oxygen Delivery Method Room Air Room Air BMI result Body Mass Index 25.9 Labs 12/06/23 16:45 12/08/23 09:07 Labs: Laboratory Results - last 48 hr 12/07/23 12/07/23 12/08/23 17:11 20:48 08:03 Sodium Potassium Chloride Carbon Dioxide Anion Gap BUN Creatinine Estim Creat Clear Calc Estimated GFR POC Glucose 389 H* 222 H 162 H Fasting Glucose Estimat Average Glucose Hemoglobin A1c % Calcium Magnesium Total Bilirubin AST ALT Alkaline Phosphatase Total Protein Albumin Triglycerides Cholesterol LDL Cholesterol, Calc HDL Cholesterol Vitamin B12 Folate TSH Free T4 12/08/23 12/08/23 12/08/23 09:07 12:10 17:40 Sodium 139 Potassium 4.5 Chloride 106 Carbon Dioxide 26 Anion Gap 12 BUN 16 Creatinine 1.07 Estim Creat Clear Calc 93.5 Estimated GFR > 60 POC Glucose 161 H 175 H Fasting Glucose 151 H Estimat Average Glucose 157 Hemoglobin A1c % 7.1 H Calcium 9.8 Magnesium 1.7 Total Bilirubin 0.5 AST 17 ALT 12 Alkaline Phosphatase 78 Total Protein 8.1 H Albumin 4.1 Triglycerides 124 Cholesterol 185 LDL Cholesterol, Calc 126 H HDL Cholesterol 35 L Vitamin B12 566 Folate 8.5 TSH 2.02 Free T4 0.82 12/08/23 12/09/23 12/09/23 21:10 08:11 12:28 Sodium Potassium Chloride Carbon Dioxide Anion Gap BUN Creatinine Estim Creat Clear Calc Estimated GFR POC Glucose 316 H 151 H 254 H Fasting Glucose Estimat Average Glucose Hemoglobin A1c % Calcium Magnesium Total Bilirubin AST ALT Alkaline Phosphatase Total Protein Albumin Triglycerides Cholesterol LDL Cholesterol, Calc HDL Cholesterol Vitamin B12 Folate TSH Free T4 Medications Medications Current Medications Acetaminophen (Acetaminophen 325 Mg Tablet) 650 mg PO Q6H PRN PRN Reason: Headache/Pain Mild Scale (1-3) Last Admin: 12/09/23 11:40 Dose: 650 mg Al Hydroxide/Mg Hydroxide (Magnesium Hydrox/Alum Hydrox 30 Ml Oral.Susp) 30 ml PO Q6H PRN PRN Reason: Heartburn/Nausea Dextrose (Dextrose 50 % 25 Gm/50 Ml Syringe) 25 gm IVPUSH Q15M PRN; Protocol PRN Reason: per Hypoglycemia Standing Ord. Escitalopram Oxalate (Escitalopram Oxalate 10 Mg Tablet) 10 mg PO DAILY [facility] Last Admin: 12/09/23 08:32 Dose: 10 mg Glucose (Glucose Gel 15 Gm Gel..Gram.) 15 gm PO Q15M PRN; Protocol PRN Reason: per Hypoglycemia Standing Ord. Hydroxyzine HCl (Hydroxyzine Hcl 25 Mg Tablet) 25 mg PO Q6H PRN PRN Reason: Anxiety Last Admin: 12/08/23 09:19 Dose: 25 mg Insulin Glargine (Insulin Glargine,Hum.Rec.Anlog 100 Unit/Ml 10 Ml Vial) 30 unit SUBCUT BEDTIME [facility] Last Admin: 12/08/23 21:16 Dose: 30 unit Lamotrigine (Lamotrigine 25 Mg Tablet) 25 mg PO BEDTIME [facility] Last Admin: 12/08/23 21:16 Dose: 25 mg Lorazepam (Lorazepam 1 Mg Tablet) 1 mg PO Q4H PRN PRN Reason: Anxiety Last Admin: 12/09/23 11:41 Dose: 1 mg Magnesium Hydroxide (Milk Of Magnesia 30 Ml Oral.Susp) 30 ml PO DAILY PRN PRN Reason: Constipation Multivitamins/Vitamin C (Multivitamin Tablet) 1 tab PO DAILY [facility] Last Admin: 12/09/23 08:32 Dose: 1 tab Naltrexone HCl (Naltrexone Hcl 50 Mg Tablet) 50 mg PO DAILY [facility] Last Admin: 12/09/23 08:32 Dose: 50 mg Nicotine (Nicotine 21 Mg Patch.Td24) 21 mg TRANSDERMA DAILY [facility] Last Admin: 12/09/23 08:32 Dose: 21 mg Nicotine Polacrilex (Nicotine Polacrilex 2 Mg Gum) 4 mg BUCCAL Q2H PRN PRN Reason: Nicotine Cravings Last Admin: 12/09/23 13:02 Dose: 4 mg Olanzapine (Olanzapine 5 Mg Tablet) 5 mg PO Q4H PRN PRN Reason: agitation Thiamine HCl (Thiamine Hcl 100 Mg Tablet) 100 mg PO DAILY [facility] Last Admin: 12/09/23 08:32 Dose: 100 mg Trazodone HCl (Trazodone Hcl 50 Mg Tablet) 50 mg PO BEDTIME MRX1 PRN PRN Reason: Insomnia Last Admin: 12/08/23 21:16 Dose: 50 mg Allergies Allergies Allergy/AdvReac Type Severity Reaction Status Date / Time No Known Allergies Allergy Verified 12/06/23 16:26 Assessment & Plan Assessment & Plan (1) Mood disorder: Status: Acute Code(s): F39 - Unspecified mood [affective] disorder Plan 33 yo male, history of opiate, alcohol, cocaine dependence with sobriety for ~4 years from opiates, 3.5 months from cocaine, alcohol. Pt asked to leave his program due to a conflict with a peer, temper issues which he would like assist with. Plan: Collateral contact Lexapro 10 mg daily Lamictal 25 mg HS Olanzapine 5 mg prn Pt given literature on bipolar disorder to review as he believes he has been manic in the past. 12/09/23- Continue current regime. Patient educated on: medication risk/benefits and therapeutic strategies Informed Consent: understands and further education needed Reason for continued inpatient stay Substantial Risk for: rapid decompensation Time Spent With Patient Time: Total time managing care of this patient today ____ minutes.
[2023-12-09 17:23] LABS: Glucose, Whole Blood 214 mg/dL (60-115)
[2023-12-09 17:24] VITALS: BP 129/76; PULSE 120; RESP 16; TEMP 36.6; O2SAT 97
[2023-12-09] MEDS: Insulin Lispro 100 UNIT/ML 3 ML VIAL 16 UNIT SUBCUT (17:33)
[2023-12-09] MEDS: hydrOXYzine HCL 25 MG TABLET PO (18:23)
--- NOTE | 2023-12-09 18:45 | PC.NURSE ---
Assumed care of pt at 18:45, currently pacing hallways, asking for needs. Offers no complaints @ this time.
[2023-12-09 20:53] LABS: Glucose, Whole Blood 208 mg/dL (60-115)
[2023-12-09] MEDS: lamoTRIgine 25 MG TABLET PO (20:59)
[2023-12-09] MEDS: Insulin Glargine,Hum.rec.anlog 100 UNIT/ML 10 ML VIAL 30 UNIT SUBCUT (21:00)
[2023-12-09] MEDS: Insulin Lispro 100 UNIT/ML 3 ML VIAL 7 UNIT SUBCUT (21:08)
--- NOTE | 2023-12-09 21:09 | PC.NURSE ---
POC 208, pt does not use sliding scale, per communication order from [facility]. TO from [facility], [address] [facility] sq for POC of 208. See MAR.
[2023-12-10 08:03] LABS: Glucose, Whole Blood 101 mg/dL (60-115)
[2023-12-10] MEDS: Nicotine Polacrilex 2 MG GUM 4 MG BUCCAL ×3 (08:39→20:13)
[2023-12-10] MEDS: Multivitamin TABLET 1 TAB PO (08:39)
[2023-12-10] MEDS: Thiamine HCL 100 MG TABLET PO (08:39)
[2023-12-10] MEDS: Escitalopram Oxalate 10 MG TABLET PO (08:39)
[2023-12-10] MEDS: Naltrexone HCl 50 MG TABLET PO (08:39)
[2023-12-10] MEDS: Nicotine 21 MG PATCH.TD24 TRANSDERMA (08:41)
[2023-12-10] MEDS: Insulin Lispro 100 UNIT/ML 3 ML VIAL 7 UNIT SUBCUT (08:43)
[2023-12-10 08:45] VITALS: BP 130/74; PULSE 70; RESP 18; TEMP 36.4; O2SAT 99
[2023-12-10] MEDS: OLANZapine 5 MG TABLET PO (08:46)
[2023-12-10] MEDS: LORazepam 1 MG TABLET PO ×2 (09:40→20:41)
--- NOTE | 2023-12-10 10:55 | P.PNPSI_ITS ---
Subjective Subjective Date of Service: 12/10/23 Reason For Visit: Depression, polysubstance use disorder Interim History: Met with patient. Discussed with Nursing. Has been feeling more anxious and irritable. We talked at length regarding sobriety and he is unsure if perhaps a low-dose methadone might help with cravings versus naltrexone. Ultimately prefer an addictions consult to discuss pros and cons of either. Reports that his roommate talking about substance use has been very difficult for his cravings. Is trying mind fullness. Trying to be present. Also hopeful that team will go over any role focus and concentration might be related to ADHD, which was raised yesterday. Review of Systems Review of Systems Yes all other systems are reviewed and are negative Mental Status Exam Mental Status Exam Narrative: Pleasant. Engaged. Casually dressed. Is anxious and depressed. Denies current SI. No HI. Some frustration. No psychosis. Insight and judgment fair Diagnostics Vital Signs (24Hr): Vital Signs - 24 hr 12/09/23 17:24 12/10/23 08:45 Temperature 98 F 97.5 F Pulse Rate 120 H 70 Respiratory Rate 16 18 Blood Pressure 129/76 130/74 Pulse Oximetry 97 99 Oxygen Delivery Method Room Air Room Air BMI result Body Mass Index 25.9 Labs 12/06/23 16:45 12/08/23 09:07 Labs: Laboratory Results - last 48 hr 12/08/23 12/08/23 12/08/23 12:10 17:40 21:10 POC Glucose 161 H 175 H 316 H 12/09/23 12/09/23 12/09/23 08:11 12:28 17:15 POC Glucose 151 H 254 H 214 H 12/09/23 12/10/23 20:49 07:58 POC Glucose 208 H 101 Medications Medications Current Medications Acetaminophen (Acetaminophen 325 Mg Tablet) 650 mg PO Q6H PRN PRN Reason: Headache/Pain Mild Scale (1-3) Last Admin: 12/09/23 11:40 Dose: 650 mg Al Hydroxide/Mg Hydroxide (Magnesium Hydrox/Alum Hydrox 30 Ml Oral.Susp) 30 ml PO Q6H PRN PRN Reason: Heartburn/Nausea Dextrose (Dextrose 50 % 25 Gm/50 Ml Syringe) 25 gm IVPUSH Q15M PRN; Protocol PRN Reason: per Hypoglycemia Standing Ord. Escitalopram Oxalate (Escitalopram Oxalate 10 Mg Tablet) 10 mg PO DAILY [facility] Last Admin: 12/10/23 08:39 Dose: 10 mg Glucose (Glucose Gel 15 Gm Gel..Gram.) 15 gm PO Q15M PRN; Protocol PRN Reason: per Hypoglycemia Standing Ord. Hydroxyzine HCl (Hydroxyzine Hcl 25 Mg Tablet) 25 mg PO Q6H PRN PRN Reason: Anxiety Last Admin: 12/09/23 18:23 Dose: 25 mg Insulin Glargine (Insulin Glargine,Hum.Rec.Anlog 100 Unit/Ml 10 Ml Vial) 30 unit SUBCUT BEDTIME [facility] Last Admin: 12/09/23 21:00 Dose: 30 unit Lamotrigine (Lamotrigine 25 Mg Tablet) 25 mg PO BEDTIME [facility] Last Admin: 12/09/23 20:59 Dose: 25 mg Lorazepam (Lorazepam 1 Mg Tablet) 1 mg PO Q4H PRN PRN Reason: Anxiety Last Admin: 12/09/23 11:41 Dose: 1 mg Magnesium Hydroxide (Milk Of Magnesia 30 Ml Oral.Susp) 30 ml PO DAILY PRN PRN Reason: Constipation Multivitamins/Vitamin C (Multivitamin Tablet) 1 tab PO DAILY [facility] Last Admin: 12/10/23 08:39 Dose: 1 tab Naltrexone HCl (Naltrexone Hcl 50 Mg Tablet) 50 mg PO DAILY [facility] Last Admin: 12/10/23 08:39 Dose: 50 mg Nicotine (Nicotine 21 Mg Patch.Td24) 21 mg TRANSDERMA DAILY [facility] Last Admin: 12/10/23 08:41 Dose: 21 mg Nicotine Polacrilex (Nicotine Polacrilex 2 Mg Gum) 4 mg BUCCAL Q2H PRN PRN Reason: Nicotine Cravings Last Admin: 12/10/23 08:39 Dose: 4 mg Olanzapine (Olanzapine 5 Mg Tablet) 5 mg PO Q4H PRN PRN Reason: agitation Last Admin: 12/10/23 08:46 Dose: 5 mg Thiamine HCl (Thiamine Hcl 100 Mg Tablet) 100 mg PO DAILY [facility] Last Admin: 12/10/23 08:39 Dose: 100 mg Trazodone HCl (Trazodone Hcl 50 Mg Tablet) 50 mg PO BEDTIME MRX1 PRN PRN Reason: Insomnia Last Admin: 12/08/23 21:16 Dose: 50 mg Allergies Allergies Allergy/AdvReac Type Severity Reaction Status Date / Time No Known Allergies Allergy Verified 12/06/23 16:26 Assessment & Plan Assessment & Plan (1) Mood disorder: Status: Acute Code(s): F39 - Unspecified mood [affective] disorder Plan 33 yo male, history of opiate, alcohol, cocaine dependence with sobriety for ~4 years from opiates, 3.5 months from cocaine, alcohol. Pt asked to leave his program due to a conflict with a peer, temper issues which he would like assist with. Plan: Collateral contact Lexapro 10 mg daily Lamictal 25 mg HS Olanzapine 5 mg prn Pt given literature on bipolar disorder to review as he believes he has been manic in the past. 12/09/23- Continue current regime. 12/10: We talked at length regarding sobriety and he is unsure if perhaps a low- dose methadone might help with cravings versus naltrexone. Ultimately prefer an addictions consult to discuss pros and cons of either. Reason for continued inpatient stay Substantial Risk for: harm to self Time Spent With Patient Time: Total time managing care of this patient today ____ minutes.
[2023-12-10 12:16] LABS: Glucose, Whole Blood 186 mg/dL (60-115)
[2023-12-10] MEDS: Insulin Lispro 100 UNIT/ML 3 ML VIAL 14 UNIT SUBCUT (12:33)
[2023-12-10] MEDS: Acetaminophen 325 MG TABLET 650 MG PO (16:29)
[2023-12-10 17:11] LABS: Glucose, Whole Blood 195 mg/dL (60-115)
[2023-12-10] MEDS: Insulin Lispro 100 UNIT/ML 3 ML VIAL 16 UNIT SUBCUT (17:49)
[2023-12-10 18:00] VITALS: BP 131/77; PULSE 74; RESP 16; TEMP 36.3; O2SAT 100
[2023-12-10] MEDS: lamoTRIgine 25 MG TABLET PO (20:41)
[2023-12-10 20:49] LABS: Glucose, Whole Blood 266 mg/dL (60-115)
[2023-12-10] MEDS: Insulin Lispro 100 UNIT/ML 3 ML VIAL SUBCUT (21:12)
[2023-12-10] MEDS: Insulin Glargine,Hum.rec.anlog 100 UNIT/ML 10 ML VIAL 30 UNIT SUBCUT (21:13)
[2023-12-11 08:05] LABS: Glucose, Whole Blood 229 mg/dL (60-115)
[2023-12-11 08:15] VITALS: BP 144/65; PULSE 74; RESP 16; TEMP 36.6; O2SAT 98
[2023-12-11] MEDS: Multivitamin TABLET 1 TAB PO (08:31)
[2023-12-11] MEDS: Insulin Lispro 100 UNIT/ML 3 ML VIAL 14 UNIT SUBCUT (08:31)
[2023-12-11] MEDS: Nicotine Polacrilex 2 MG GUM 4 MG BUCCAL ×6 (08:31→21:21)
[2023-12-11] MEDS: Escitalopram Oxalate 10 MG TABLET PO (08:31)
[2023-12-11] MEDS: Thiamine HCL 100 MG TABLET PO (08:31)
[2023-12-11] MEDS: Naltrexone HCl 50 MG TABLET PO (08:31)
[2023-12-11] MEDS: Nicotine 21 MG PATCH.TD24 TRANSDERMA (08:32)
[2023-12-11] MEDS: LORazepam 1 MG TABLET PO ×3 (08:36→21:20)
[2023-12-11 12:08] LABS: Glucose, Whole Blood 238 mg/dL (60-115)
--- NOTE | 2023-12-11 12:12 | HO.PSYCHPN ---
Subjective Subjective Date of Service: 12/11/23 Reason For Visit: Depression, polysubstance use disorder Interim History: Met with patient. Discussed with Nursing. Has been feeling more anxious and irritable with cravings- in context of anniversary of friends suicide and other close friends wedding today. Utilzing staff support today, in milieu, trying mindfullness. Trying to be present. Still wants addictions consult to discuss pros and cons of long acting naltrexone versus methadone.. Medication Compliance: Yes Side effects from medications: No Attending Groups: Yes Review of Systems Acute medical concerns: No Review of Systems Review of Systems Yes all other systems are reviewed and are negative Mental Status Exam Mental Status Exam Narrative: Pleasant. Engaged. Casually dressed. Is anxious and depressed. Denies current SI. No HI. Some frustration. No psychosis. Insight and judgment fair Diagnostics Vital Signs (24Hr): Vital Signs - 24 hr 12/10/23 18:00 12/11/23 08:15 Temperature 97.4 F 97.8 F Pulse Rate 74 74 Respiratory Rate 16 16 Blood Pressure 131/77 144/65 H Pulse Oximetry 100 98 Oxygen Delivery Method Room Air Room Air BMI result Body Mass Index 25.9 Labs 12/06/23 16:45 12/08/23 09:07 Labs: Laboratory Results - last 48 hr 12/09/23 12/09/23 12/09/23 12:28 17:15 20:49 POC Glucose 254 H 214 H 208 H 12/10/23 12/10/23 12/10/23 07:58 12:06 17:05 POC Glucose 101 186 H 195 H 12/10/23 12/11/23 12/11/23 20:45 07:58 12:03 POC Glucose 266 H 229 H 238 H Medications Medications Current Medications Acetaminophen (Acetaminophen 325 Mg Tablet) 650 mg PO Q6H PRN PRN Reason: Headache/Pain Mild Scale (1-3) Last Admin: 12/10/23 16:29 Dose: 650 mg Al Hydroxide/Mg Hydroxide (Magnesium Hydrox/Alum Hydrox 30 Ml Oral.Susp) 30 ml PO Q6H PRN PRN Reason: Heartburn/Nausea Dextrose (Dextrose 50 % 25 Gm/50 Ml Syringe) 25 gm IVPUSH Q15M PRN; Protocol PRN Reason: per Hypoglycemia Standing Ord. Escitalopram Oxalate (Escitalopram Oxalate 10 Mg Tablet) 10 mg PO DAILY [facility] Last Admin: 12/11/23 08:31 Dose: 10 mg Glucose (Glucose Gel 15 Gm Gel..Gram.) 15 gm PO Q15M PRN; Protocol PRN Reason: per Hypoglycemia Standing Ord. Hydroxyzine HCl (Hydroxyzine Hcl 25 Mg Tablet) 25 mg PO Q6H PRN PRN Reason: Anxiety Last Admin: 12/09/23 18:23 Dose: 25 mg Insulin Glargine (Insulin Glargine,Hum.Rec.Anlog 100 Unit/Ml 10 Ml Vial) 30 unit SUBCUT BEDTIME [facility] Last Admin: 12/10/23 21:13 Dose: 30 unit Lamotrigine (Lamotrigine 25 Mg Tablet) 25 mg PO BEDTIME [facility] Last Admin: 12/10/23 20:41 Dose: 25 mg Lorazepam (Lorazepam 1 Mg Tablet) 1 mg PO Q4H PRN PRN Reason: Anxiety Last Admin: 12/11/23 08:36 Dose: 1 mg Magnesium Hydroxide (Milk Of Magnesia 30 Ml Oral.Susp) 30 ml PO DAILY PRN PRN Reason: Constipation Multivitamins/Vitamin C (Multivitamin Tablet) 1 tab PO DAILY [facility] Last Admin: 12/11/23 08:31 Dose: 1 tab Naltrexone HCl (Naltrexone Hcl 50 Mg Tablet) 50 mg PO DAILY [facility] Last Admin: 12/11/23 08:31 Dose: 50 mg Nicotine (Nicotine 21 Mg Patch.Td24) 21 mg TRANSDERMA DAILY [facility] Last Admin: 12/11/23 08:32 Dose: 21 mg Nicotine Polacrilex (Nicotine Polacrilex 2 Mg Gum) 4 mg BUCCAL Q2H PRN PRN Reason: Nicotine Cravings Last Admin: 12/11/23 10:51 Dose: 4 mg Olanzapine (Olanzapine 5 Mg Tablet) 5 mg PO Q4H PRN PRN Reason: agitation Last Admin: 12/10/23 08:46 Dose: 5 mg Thiamine HCl (Thiamine Hcl 100 Mg Tablet) 100 mg PO DAILY [facility] Last Admin: 12/11/23 08:31 Dose: 100 mg Trazodone HCl (Trazodone Hcl 50 Mg Tablet) 50 mg PO BEDTIME MRX1 PRN PRN Reason: Insomnia Last Admin: 12/08/23 21:16 Dose: 50 mg Allergies Allergies Allergy/AdvReac Type Severity Reaction Status Date / Time No Known Allergies Allergy Verified 12/06/23 16:26 Assessment & Plan Assessment & Plan (1) Mood disorder: Status: Acute Code(s): F39 - Unspecified mood [affective] disorder Plan 33 yo male, history of opiate, alcohol, cocaine dependence with sobriety for ~4 years from opiates, 3.5 months from cocaine, alcohol. Pt asked to leave his program due to a conflict with a peer, temper issues which he would like assist with. Plan: Collateral contact Lexapro 10 mg daily Lamictal 25 mg HS Olanzapine 5 mg prn Pt given literature on bipolar disorder to review as he believes he has been manic in the past. 12/09/23- Continue current regime. 12/10: We talked at length regarding sobriety and he is unsure if perhaps a low-dose methadone might help with cravings versus long acting injectable of naltrexone. Ultimately prefer an addictions consult to discuss pros and cons of either. 12/11: no changes Reason for continued inpatient stay Substantial Risk for: harm to self Time Spent With Patient Time: Total time managing care of this patient today ____ minutes.
[2023-12-11] MEDS: Insulin Lispro 100 UNIT/ML 3 ML VIAL 15 UNIT SUBCUT (12:29)
[2023-12-11] MEDS: OLANZapine 5 MG TABLET PO (17:09)
[2023-12-11 17:16] LABS: Glucose, Whole Blood 125 mg/dL (60-115)
[2023-12-11] MEDS: Insulin Lispro 100 UNIT/ML 3 ML VIAL 12 UNIT SUBCUT (17:41)
[2023-12-11 21:03] LABS: Glucose, Whole Blood 213 mg/dL (60-115)
[2023-12-11 21:05] VITALS: BP 127/68; PULSE 81; TEMP 36.9
[2023-12-11] MEDS: lamoTRIgine 25 MG TABLET PO (21:20)
[2023-12-11] MEDS: traZODone HCL 50 MG TABLET PO (21:20)
[2023-12-11] MEDS: Insulin Lispro 100 UNIT/ML 3 ML VIAL 6 UNIT SUBCUT (21:21)
[2023-12-11] MEDS: Insulin Glargine,Hum.rec.anlog 100 UNIT/ML 10 ML VIAL 30 UNIT SUBCUT (21:22)
[2023-12-12 06:00] VITALS: BP 128/71; PULSE 86; RESP 15; TEMP 36.7; O2SAT 97
[2023-12-12 08:41] LABS: Glucose, Whole Blood 126 mg/dL (60-115)
[2023-12-12] MEDS: Thiamine HCL 100 MG TABLET PO (09:01)
[2023-12-12] MEDS: Multivitamin TABLET 1 TAB PO (09:01)
[2023-12-12] MEDS: Escitalopram Oxalate 10 MG TABLET PO (09:01)
[2023-12-12] MEDS: Nicotine 21 MG PATCH.TD24 TRANSDERMA (09:01)
[2023-12-12] MEDS: Naltrexone HCl 50 MG TABLET PO (09:01)
[2023-12-12] MEDS: LORazepam 1 MG TABLET PO ×3 (09:01→20:38)
[2023-12-12] MEDS: Insulin Lispro 100 UNIT/ML 3 ML VIAL 16 UNIT SUBCUT (09:06)
[2023-12-12] MEDS: Nicotine Polacrilex 2 MG GUM 4 MG BUCCAL ×5 (09:08→20:38)
[2023-12-12 12:46] LABS: Glucose, Whole Blood 119 mg/dL (60-115)
[2023-12-12] MEDS: Insulin Lispro 100 UNIT/ML 3 ML VIAL 10 UNIT SUBCUT ×2 (13:05→18:37)
[2023-12-12] MEDS: Amphetamine Mixed Salts 10 MG TABLET PO (13:05)
[2023-12-12] MEDS: Nicotine Polacrilex 2 MG GUM BUCCAL ×3 (13:10→18:39)
--- NOTE | 2023-12-12 15:06 | HO.PSYCHPN ---
Subjective Subjective Date of Service: 12/12/23 Reason For Visit: Depression, polysubstance use disorder Subjective Notes: Conditional Voluntary Healthcare Proxy: No Guardianship: No Medical Problems Affecting Mental Status: No Interim History: Pt seen, reviewed with team. Reviewed weekend and symptoms. Blood sugars he finds are within his range. Notes anxiety, lack of focus. Discussed schedule of Olanzapine 10 mg bid to begin with blood sugar monitoring and considerations if it spikes and trial of low dose Adderall. He agrees. Review of SE and expectations for effects of both agents. Medication Compliance: Yes Side effects from medications: No Attending Groups: Intermittent Review of Systems Acute medical concerns: No Medical Review of Systems: unchanged Review of Systems Review of Systems Yes all other systems are reviewed and are negative (denies) Mental Status Exam Mental Status Exam Patient Appearance: Appropriate Patient Orientation: Person, Place, Time and Situation Level of Consciousness: Alert Patient Behavior: Talkative and Good Eye Contact Mood Description: Anxious Affect Description: Anxious Patient Cognition Impaired: No Ability to Follow Directions: Good Speech Pattern: Spontaneous Speech Memory Description: Intact Hallucinations: None Delusions: Not Present Thought Process: Distracted Thought Content: positive for Perseveration Depressive Symptoms: Increased Anxiety, Increased Irritability and Difficulty Concentrating Judgement: Fair Diagnostics Vital Signs (24Hr): Vital Signs - 24 hr 12/11/23 21:05 12/12/23 06:00 Temperature 98.4 F 98.1 F Pulse Rate 81 86 Respiratory Rate 15 Blood Pressure 127/68 128/71 Pulse Oximetry 97 Oxygen Delivery Method Room Air BMI result Body Mass Index 25.9 Labs 12/06/23 16:45 12/08/23 09:07 Labs: Laboratory Results - last 48 hr 12/10/23 12/10/23 12/11/23 17:05 20:45 07:58 POC Glucose 195 H 266 H 229 H 12/11/23 12/11/23 12/11/23 12:03 17:06 20:59 POC Glucose 238 H 125 H 213 H 12/12/23 12/12/23 08:32 12:42 POC Glucose 126 H 119 H Medications Medications Current Medications Acetaminophen (Acetaminophen 325 Mg Tablet) 650 mg PO Q6H PRN PRN Reason: Headache/Pain Mild Scale (1-3) Last Admin: 12/10/23 16:29 Dose: 650 mg Al Hydroxide/Mg Hydroxide (Magnesium Hydrox/Alum Hydrox 30 Ml Oral.Susp) 30 ml PO Q6H PRN PRN Reason: Heartburn/Nausea Amphetamine/Dextroamphetamine (Amphetamine Mixed Salts 10 Mg Tablet) 10 mg PO BID@0800,1300 [facility] Last Admin: 12/12/23 13:05 Dose: 10 mg Dextrose (Dextrose 50 % 25 Gm/50 Ml Syringe) 25 gm IVPUSH Q15M PRN; Protocol PRN Reason: per Hypoglycemia Standing Ord. Escitalopram Oxalate (Escitalopram Oxalate 20 Mg Tablet) 20 mg PO DAILY [facility] Glucose (Glucose Gel 15 Gm Gel..Gram.) 15 gm PO Q15M PRN; Protocol PRN Reason: per Hypoglycemia Standing Ord. Hydroxyzine HCl (Hydroxyzine Hcl 25 Mg Tablet) 25 mg PO Q6H PRN PRN Reason: Anxiety Last Admin: 12/09/23 18:23 Dose: 25 mg Insulin Glargine (Insulin Glargine,Hum.Rec.Anlog 100 Unit/Ml 10 Ml Vial) 30 unit SUBCUT BEDTIME [facility] Last Admin: 12/11/23 21:22 Dose: 30 unit Lamotrigine (Lamotrigine 25 Mg Tablet) 25 mg PO BEDTIME [facility] Last Admin: 12/11/23 21:20 Dose: 25 mg Lorazepam (Lorazepam 1 Mg Tablet) 1 mg PO Q4H PRN PRN Reason: Anxiety Last Admin: 12/12/23 09:01 Dose: 1 mg Magnesium Hydroxide (Milk Of Magnesia 30 Ml Oral.Susp) 30 ml PO DAILY PRN PRN Reason: Constipation Multivitamins/Vitamin C (Multivitamin Tablet) 1 tab PO DAILY [facility] Last Admin: 12/12/23 09:01 Dose: 1 tab Naltrexone HCl (Naltrexone Hcl 50 Mg Tablet) 50 mg PO DAILY [facility] Last Admin: 12/12/23 09:01 Dose: 50 mg Nicotine (Nicotine 21 Mg Patch.Td24) 21 mg TRANSDERMA DAILY [facility] Last Admin: 12/12/23 09:01 Dose: 21 mg Nicotine Polacrilex (Nicotine Polacrilex 2 Mg Gum) 4 mg BUCCAL Q2H PRN PRN Reason: Nicotine Cravings Last Admin: 12/12/23 13:09 Dose: 4 mg Nicotine Polacrilex (Nicotine Polacrilex 2 Mg Gum) 2 mg BUCCAL Q2H PRN PRN Reason: Nicotine Cravings Last Admin: 12/12/23 13:10 Dose: 2 mg Olanzapine (Olanzapine 5 Mg Tablet) 5 mg PO Q4H PRN PRN Reason: agitation Last Admin: 12/11/23 17:09 Dose: 5 mg Olanzapine (Olanzapine 10 Mg Tablet) 10 mg PO BID [facility] Thiamine HCl (Thiamine Hcl 100 Mg Tablet) 100 mg PO DAILY [facility] Last Admin: 12/12/23 09:01 Dose: 100 mg Trazodone HCl (Trazodone Hcl 50 Mg Tablet) 50 mg PO BEDTIME MRX1 PRN PRN Reason: Insomnia Last Admin: 12/11/23 21:20 Dose: 50 mg Allergies Allergies Allergy/AdvReac Type Severity Reaction Status Date / Time No Known Allergies Allergy Verified 12/06/23 16:26 Assessment & Plan Assessment & Plan (1) Mood disorder: Status: Acute Code(s): F39 - Unspecified mood [affective] disorder Plan 33 yo male, history of opiate, alcohol, cocaine dependence with sobriety for ~4 years from opiates, 3.5 months from cocaine, alcohol. Pt asked to leave his program due to a conflict with a peer, temper issues which he would like assist with. Plan: Collateral contact Lexapro 10 mg daily Lamictal 25 mg HS Olanzapine 5 mg prn Pt given literature on bipolar disorder to review as he believes he has been manic in the past. 12/09/23- Continue current regime. 23: We talked at length regarding sobriety and he is unsure if perhaps a low-dose methadone might help with cravings versus long acting injectable of naltrexone. Ultimately prefer an addictions consult to discuss pros and cons of either. 24: no changes 12/12/23: Olanzapine 10 mg bid Adderall 10 mg 0800,1300 trial Patient educated on: medication risk/benefits and therapeutic strategies Informed Consent: understands and further education needed Reason for continued inpatient stay Substantial Risk for: rapid decompensation Time Spent With Patient Time: Total time managing care of this patient today ____ minutes.
[2023-12-12 17:13] LABS: Glucose, Whole Blood 189 mg/dL (60-115)
[2023-12-12 18:00] VITALS: BP 142/77; PULSE 106; RESP 18; TEMP 36.7; O2SAT 98
[2023-12-12 18:13] LABS: Glucose, Whole Blood 264 mg/dL (60-115)
--- NOTE | 2023-12-12 18:33 | PM.EVENT ---
Event Note Date of Service: 12/12/23 Event Note: ordered lispro 10 units base on pt's carb counting ration to insulin. Time Spent With Patient Time: Total time managing care of this patient today ____ minutes.
[2023-12-12 20:24] LABS: Glucose, Whole Blood 243 mg/dL (60-115)
[2023-12-12] MEDS: Insulin Lispro 100 UNIT/ML 3 ML VIAL 6 UNIT SUBCUT (20:35)
[2023-12-12] MEDS: Insulin Glargine,Hum.rec.anlog 100 UNIT/ML 10 ML VIAL 30 UNIT SUBCUT (20:36)
[2023-12-12] MEDS: traZODone HCL 50 MG TABLET PO (20:38)
[2023-12-12] MEDS: OLANZapine 10 MG TABLET PO (20:38)
[2023-12-12] MEDS: lamoTRIgine 25 MG TABLET PO (20:38)
[2023-12-13 07:56] VITALS: BP 133/76; PULSE 78; RESP 16; TEMP 36.3; O2SAT 97
[2023-12-13 07:58] LABS: Glucose, Whole Blood 159 mg/dL (60-115)
[2023-12-13] MEDS: Naltrexone HCl 50 MG TABLET PO (08:06)
[2023-12-13] MEDS: Amphetamine Mixed Salts 10 MG TABLET PO ×2 (08:06→12:10)
[2023-12-13] MEDS: OLANZapine 10 MG TABLET PO ×2 (08:06→20:48)
[2023-12-13] MEDS: Thiamine HCL 100 MG TABLET PO (08:06)
[2023-12-13] MEDS: Multivitamin TABLET 1 TAB PO (08:06)
[2023-12-13] MEDS: Escitalopram Oxalate 20 MG TABLET PO (08:06)
[2023-12-13] MEDS: Nicotine Polacrilex 2 MG GUM 4 MG BUCCAL ×5 (08:21→20:49)
[2023-12-13] MEDS: Nicotine 21 MG PATCH.TD24 TRANSDERMA (08:21)
[2023-12-13] MEDS: LORazepam 1 MG TABLET PO ×2 (09:02→15:50)
[2023-12-13] MEDS: Insulin Lispro 100 UNIT/ML 3 ML VIAL 16 UNIT SUBCUT (09:08)
[2023-12-13 11:57] LABS: Glucose, Whole Blood 306 mg/dL (60-115)
[2023-12-13] MEDS: Insulin Lispro 100 UNIT/ML 3 ML VIAL 17 UNIT SUBCUT (12:09)
[2023-12-13] MEDS: Nicotine Polacrilex 2 MG GUM BUCCAL ×2 (12:15→15:50)
--- NOTE | 2023-12-13 14:24 | P.PNPSI_ITS ---
Subjective Subjective Date of Service: 12/13/23 Reason For Visit: Depression, polysubstance use disorder Subjective Notes: Conditional Voluntary Healthcare Proxy: No Guardianship: No Medical Problems Affecting Mental Status: No Interim History: Pt seen, reviewed in team meeting. Pt reports tolerating changes in meds well. Slept well last night. Adderall he found helpful in clarification of focus, decrease in anxiety, decrease in scattering of his thoughts and without SE. He would like to continue the trial. Denies issues with mgt of DMI. Believes his plan to address symptoms is on track. 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 Discussed missing AA and AA connections. Will ask addiction team if we have resources to help him remain connected during his admission. Medication Compliance: Yes Side effects from medications: No Attending Groups: Intermittent Review of Systems Acute medical concerns: No Medical Review of Systems: unchanged Review of Systems Review of Systems Yes all other systems are reviewed and are negative (denies) Mental Status Exam Mental Status Exam Patient Appearance: Appropriate Patient Orientation: Person, Place, Time and Situation Level of Consciousness: Alert Patient Behavior: Talkative and Good Eye Contact Mood Description: Anxious Affect Description: Anxious Patient Cognition Impaired: No Ability to Follow Directions: Good Speech Pattern: Spontaneous Speech Memory Description: Intact Hallucinations: None Delusions: Not Present Thought Process: Distracted Thought Content: positive for Perseveration Depressive Symptoms: Increased Anxiety and Difficulty Concentrating Judgement: Fair Diagnostics Vital Signs (24Hr): Vital Signs - 24 hr 12/12/23 18:00 12/13/23 07:56 Temperature 98.1 F 97.3 F Pulse Rate 106 H 78 Respiratory Rate 18 16 Blood Pressure 142/77 H 133/76 Pulse Oximetry 98 97 Oxygen Delivery Method Room Air Room Air BMI result Body Mass Index 25.9 Labs 12/06/23 16:45 12/08/23 09:07 Labs: Laboratory Results - last 48 hr 12/11/23 12/11/23 12/12/23 17:06 20:59 08:32 POC Glucose 125 H 213 H 126 H 12/12/23 12/12/23 12/12/23 12:42 17:09 18:09 POC Glucose 119 H 189 H 264 H 12/12/23 12/13/23 12/13/23 20:20 07:54 11:53 POC Glucose 243 H 159 H 306 H Medications Medications Current Medications Acetaminophen (Acetaminophen 325 Mg Tablet) 650 mg PO Q6H PRN PRN Reason: Headache/Pain Mild Scale (1-3) Last Admin: 12/10/23 16:29 Dose: 650 mg Al Hydroxide/Mg Hydroxide (Magnesium Hydrox/Alum Hydrox 30 Ml Oral.Susp) 30 ml PO Q6H PRN PRN Reason: Heartburn/Nausea Amphetamine/Dextroamphetamine (Amphetamine Mixed Salts 10 Mg Tablet) 10 mg PO BID@0800,1300 [facility] Last Admin: 12/13/23 12:10 Dose: 10 mg Dextrose (Dextrose 50 % 25 Gm/50 Ml Syringe) 25 gm IVPUSH Q15M PRN; Protocol PRN Reason: per Hypoglycemia Standing Ord. Escitalopram Oxalate (Escitalopram Oxalate 20 Mg Tablet) 20 mg PO DAILY [facility] Last Admin: 12/13/23 08:06 Dose: 20 mg Glucose (Glucose Gel 15 Gm Gel..Gram.) 15 gm PO Q15M PRN; Protocol PRN Reason: per Hypoglycemia Standing Ord. Hydroxyzine HCl (Hydroxyzine Hcl 25 Mg Tablet) 25 mg PO Q6H PRN PRN Reason: Anxiety Last Admin: 12/09/23 18:23 Dose: 25 mg Insulin Glargine (Insulin Glargine,Hum.Rec.Anlog 100 Unit/Ml 10 Ml Vial) 30 unit SUBCUT BEDTIME [facility] Last Admin: 12/12/23 20:36 Dose: 30 unit Lamotrigine (Lamotrigine 25 Mg Tablet) 25 mg PO BEDTIME [facility] Last Admin: 12/12/23 20:38 Dose: 25 mg Lorazepam (Lorazepam 1 Mg Tablet) 1 mg PO Q4H PRN PRN Reason: Anxiety Last Admin: 12/13/23 09:02 Dose: 1 mg Magnesium Hydroxide (Milk Of Magnesia 30 Ml Oral.Susp) 30 ml PO DAILY PRN PRN Reason: Constipation Multivitamins/Vitamin C (Multivitamin Tablet) 1 tab PO DAILY [facility] Last Admin: 12/13/23 08:06 Dose: 1 tab Naltrexone HCl (Naltrexone Hcl 50 Mg Tablet) 50 mg PO DAILY [facility] Last Admin: 12/13/23 08:06 Dose: 50 mg Nicotine (Nicotine 21 Mg Patch.Td24) 21 mg TRANSDERMA DAILY [facility] Last Admin: 12/13/23 08:21 Dose: 21 mg Nicotine Polacrilex (Nicotine Polacrilex 2 Mg Gum) 4 mg BUCCAL Q2H PRN PRN Reason: Nicotine Cravings Last Admin: 12/13/23 12:15 Dose: 4 mg Nicotine Polacrilex (Nicotine Polacrilex 2 Mg Gum) 2 mg BUCCAL Q2H PRN PRN Reason: Nicotine Cravings Last Admin: 12/13/23 12:15 Dose: 2 mg Olanzapine (Olanzapine 5 Mg Tablet) 5 mg PO Q4H PRN PRN Reason: agitation Last Admin: 12/11/23 17:09 Dose: 5 mg Olanzapine (Olanzapine 10 Mg Tablet) 10 mg PO BID [facility] Last Admin: 12/13/23 08:06 Dose: 10 mg Thiamine HCl (Thiamine Hcl 100 Mg Tablet) 100 mg PO DAILY [facility] Last Admin: 12/13/23 08:06 Dose: 100 mg Trazodone HCl (Trazodone Hcl 50 Mg Tablet) 50 mg PO BEDTIME MRX1 PRN PRN Reason: Insomnia Last Admin: 12/12/23 20:38 Dose: 50 mg Allergies Allergies Allergy/AdvReac Type Severity Reaction Status Date / Time No Known Allergies Allergy Verified 12/06/23 16:26 Assessment & Plan Assessment & Plan (1) Mood disorder: Status: Acute Code(s): F39 - Unspecified mood [affective] disorder Plan 33 yo male, history of opiate, alcohol, cocaine dependence with sobriety for ~4 years from opiates, 3.5 months from cocaine, alcohol. Pt asked to leave his program due to a conflict with a peer, temper issues which he would like assist with. Plan: Collateral contact Lexapro 10 mg daily Lamictal 25 mg HS Olanzapine 5 mg prn Pt given literature on bipolar disorder to review as he believes he has been manic in the past. 12/09/23- Continue current regime. 23: We talked at length regarding sobriety and he is unsure if perhaps a low- dose methadone might help with cravings versus long acting injectable of naltrexone. Ultimately prefer an addictions consult to discuss pros and cons of either. 12/11: no changes 12/13/23: Continue tx. No changes today. Addiction consult-AA connection request Patient educated on: medication risk/benefits and therapeutic strategies Informed Consent: understands and further education needed Reason for continued inpatient stay Substantial Risk for: rapid decompensation Time Spent With Patient Time: Total time managing care of this patient today ____ minutes.
[2023-12-13 17:14] LABS: Glucose, Whole Blood 124 mg/dL (60-115)
[2023-12-13 18:00] VITALS: BP 138/81; PULSE 112; RESP 20; TEMP 36.8; O2SAT 96
[2023-12-13] MEDS: Insulin Lispro 100 UNIT/ML 3 ML VIAL 12 UNIT SUBCUT (18:46)
[2023-12-13] MEDS: hydrOXYzine HCL 25 MG TABLET PO (18:47)
[2023-12-13 20:43] LABS: Glucose, Whole Blood 114 mg/dL (60-115)
[2023-12-13] MEDS: Insulin Glargine,Hum.rec.anlog 100 UNIT/ML 10 ML VIAL 30 UNIT SUBCUT (20:47)
[2023-12-13] MEDS: lamoTRIgine 25 MG TABLET PO (20:48)
[2023-12-13] MEDS: traZODone HCL 50 MG TABLET PO (20:49)
[2023-12-14 08:19] LABS: Glucose, Whole Blood 202 mg/dL (60-115)
[2023-12-14 08:30] VITALS: BP 124/75; PULSE 96; RESP 18; TEMP 36.9; O2SAT 98
[2023-12-14] MEDS: Naltrexone HCl 50 MG TABLET PO (08:33)
[2023-12-14] MEDS: Amphetamine Mixed Salts 10 MG TABLET PO (08:33)
[2023-12-14] MEDS: OLANZapine 10 MG TABLET PO (08:33)
[2023-12-14] MEDS: Thiamine HCL 100 MG TABLET PO (08:33)
[2023-12-14] MEDS: Escitalopram Oxalate 20 MG TABLET PO (08:33)
[2023-12-14] MEDS: Multivitamin TABLET 1 TAB PO (08:33)
[2023-12-14] MEDS: Nicotine 21 MG PATCH.TD24 TRANSDERMA (08:33)
[2023-12-14] MEDS: Insulin Lispro 100 UNIT/ML 3 ML VIAL 18 UNIT SUBCUT (08:34)
--- NOTE | 2023-12-14 08:38 | HO.PSYCHPN ---
Subjective Subjective Date of Service: 12/14/23 Reason For Visit: Depression, polysubstance use disorder Subjective Notes: Conditional Voluntary Healthcare Proxy: No Guardianship: No Medical Problems Affecting Mental Status: No Interim History: Pt reports feeling improved. Review of regime. Will change Adderall to XR 10, timing to 0800, 1400. These doses are helpful also for anxiety, thus timing change. Has decided against Methadone at this time Hoping to transition to [facility] when treatment is completed. Medication Compliance: Yes Side effects from medications: No Attending Groups: Yes Review of Systems Acute medical concerns: No Review of Systems Review of Systems Yes all other systems are reviewed and are negative Mental Status Exam Mental Status Exam Patient Appearance: Appropriate Patient Orientation: Person, Place, Time and Situation Level of Consciousness: Alert Patient Behavior: Talkative and Good Eye Contact Mood Description: Constricted Affect Description: Constricted Patient Cognition Impaired: No Ability to Follow Directions: Good Speech Pattern: Spontaneous Speech Memory Description: Intact Hallucinations: None Delusions: Not Present Thought Process: Distracted Thought Content: positive for Perseveration Depressive Symptoms: Difficulty Concentrating Judgement: Good Diagnostics Vital Signs (24Hr): Vital Signs - 24 hr 12/13/23 18:00 Temperature 98.3 F Pulse Rate 112 H Respiratory Rate 20 Blood Pressure 138/81 Pulse Oximetry 96 Oxygen Delivery Method Room Air BMI result Body Mass Index 25.9 Labs 12/06/23 16:45 12/08/23 09:07 Labs: Laboratory Results - last 48 hr 12/12/23 12/12/23 12/12/23 08:32 12:42 17:09 POC Glucose 126 H 119 H 189 H 12/12/23 12/12/23 12/13/23 18:09 20:20 07:54 POC Glucose 264 H 243 H 159 H 12/13/23 12/13/23 12/13/23 11:53 17:09 20:40 POC Glucose 306 H 124 H 114 12/14/23 08:07 POC Glucose 202 H Medications Medications Current Medications Acetaminophen (Acetaminophen 325 Mg Tablet) 650 mg PO Q6H PRN PRN Reason: Headache/Pain Mild Scale (1-3) Last Admin: 12/10/23 16:29 Dose: 650 mg Al Hydroxide/Mg Hydroxide (Magnesium Hydrox/Alum Hydrox 30 Ml Oral.Susp) 30 ml PO Q6H PRN PRN Reason: Heartburn/Nausea Amphetamine/Dextroamphetamine (Amphetamine Mixed Salts 10 Mg Tablet) 10 mg PO BID@0800,1300 [facility] Last Admin: 12/14/23 08:33 Dose: 10 mg Dextrose (Dextrose 50 % 25 Gm/50 Ml Syringe) 25 gm IVPUSH Q15M PRN; Protocol PRN Reason: per Hypoglycemia Standing Ord. Escitalopram Oxalate (Escitalopram Oxalate 20 Mg Tablet) 20 mg PO DAILY [facility] Last Admin: 12/14/23 08:33 Dose: 20 mg Glucose (Glucose Gel 15 Gm Gel..Gram.) 15 gm PO Q15M PRN; Protocol PRN Reason: per Hypoglycemia Standing Ord. Hydroxyzine HCl (Hydroxyzine Hcl 25 Mg Tablet) 25 mg PO Q6H PRN PRN Reason: Anxiety Last Admin: 12/13/23 18:47 Dose: 25 mg Insulin Glargine (Insulin Glargine,Hum.Rec.Anlog 100 Unit/Ml 10 Ml Vial) 30 unit SUBCUT BEDTIME [facility] Last Admin: 12/13/23 20:47 Dose: 30 unit Lamotrigine (Lamotrigine 25 Mg Tablet) 25 mg PO BEDTIME [facility] Last Admin: 12/13/23 20:48 Dose: 25 mg Lorazepam (Lorazepam 1 Mg Tablet) 1 mg PO Q4H PRN PRN Reason: Anxiety Last Admin: 12/13/23 15:50 Dose: 1 mg Magnesium Hydroxide (Milk Of Magnesia 30 Ml Oral.Susp) 30 ml PO DAILY PRN PRN Reason: Constipation Multivitamins/Vitamin C (Multivitamin Tablet) 1 tab PO DAILY [facility] Last Admin: 12/14/23 08:33 Dose: 1 tab Naltrexone HCl (Naltrexone Hcl 50 Mg Tablet) 50 mg PO DAILY [facility] Last Admin: 12/14/23 08:33 Dose: 50 mg Nicotine (Nicotine 21 Mg Patch.Td24) 21 mg TRANSDERMA DAILY [facility] Last Admin: 12/14/23 08:33 Dose: 21 mg Nicotine Polacrilex (Nicotine Polacrilex 2 Mg Gum) 4 mg BUCCAL Q2H PRN PRN Reason: Nicotine Cravings Last Admin: 12/13/23 20:49 Dose: 4 mg Nicotine Polacrilex (Nicotine Polacrilex 2 Mg Gum) 2 mg BUCCAL Q2H PRN PRN Reason: Nicotine Cravings Last Admin: 12/13/23 15:50 Dose: 2 mg Olanzapine (Olanzapine 5 Mg Tablet) 5 mg PO Q4H PRN PRN Reason: agitation Last Admin: 12/11/23 17:09 Dose: 5 mg Olanzapine (Olanzapine 10 Mg Tablet) 10 mg PO BID [facility] Last Admin: 12/14/23 08:33 Dose: 10 mg Thiamine HCl (Thiamine Hcl 100 Mg Tablet) 100 mg PO DAILY [facility] Last Admin: 12/14/23 08:33 Dose: 100 mg Trazodone HCl (Trazodone Hcl 50 Mg Tablet) 50 mg PO BEDTIME MRX1 PRN PRN Reason: Insomnia Last Admin: 12/13/23 20:49 Dose: 50 mg Allergies Allergies Allergy/AdvReac Type Severity Reaction Status Date / Time No Known Allergies Allergy Verified 12/06/23 16:26 Assessment & Plan Assessment & Plan (1) Mood disorder: Status: Acute Code(s): F39 - Unspecified mood [affective] disorder Plan 33 yo male, history of opiate, alcohol, cocaine dependence with sobriety for ~4 years from opiates, 3.5 months from cocaine, alcohol. Pt asked to leave his program due to a conflict with a peer, temper issues which he would like assist with. Plan: Collateral contact Lexapro 10 mg daily Lamictal 25 mg HS Olanzapine 5 mg prn Pt given literature on bipolar disorder to review as he believes he has been manic in the past. 12/09/23- Continue current regime. 23: We talked at length regarding sobriety and he is unsure if perhaps a low-dose methadone might help with cravings versus long acting injectable of naltrexone. Ultimately prefer an addictions consult to discuss pros and cons of either. 12/11: no changes 12/13/23: Continue tx. No changes today. Addiction consult-AA connection request 12/14/23: Change Adderall to XR 10 mg bid 0800,1400 Patient educated on: medication risk/benefits Informed Consent: understands Reason for continued inpatient stay Substantial Risk for: rapid decompensation Time Spent With Patient Time: Total time managing care of this patient today ____ minutes.
[2023-12-14] MEDS: Nicotine Polacrilex 2 MG GUM 4 MG BUCCAL ×4 (09:01→18:08)
[2023-12-14] MEDS: Nicotine Polacrilex 2 MG GUM BUCCAL ×4 (09:03→18:10)
[2023-12-14] MEDS: Insulin Lispro 100 UNIT/ML 3 ML VIAL 13 UNIT SUBCUT ×2 (12:18→18:02)
[2023-12-14] MEDS: OLANZapine 5 MG TABLET PO ×2 (12:20→20:54)
[2023-12-14 12:23] LABS: Glucose, Whole Blood 263 mg/dL (60-115)
[2023-12-14] MEDS: Dextroamphetamine/Amphetamine XR 10 MG CAP.ER.24H PO (13:01)
[2023-12-14] MEDS: LORazepam 1 MG TABLET PO (15:07)
[2023-12-14 16:00] VITALS: BP 121/68; PULSE 91; RESP 16; TEMP 36.7; O2SAT 98
[2023-12-14 17:44] LABS: Glucose, Whole Blood 116 mg/dL (60-115)
[2023-12-14] MEDS: hydrOXYzine HCL 25 MG TABLET PO (18:08)
--- NOTE | 2023-12-14 20:14 | PC.NURSE ---
Assumed care of pt at 19:30, pt pacing halls & listening to headphones. Offers no complaints @ this time.
[2023-12-14 20:52] LABS: Glucose, Whole Blood 114 mg/dL (60-115)
[2023-12-14] MEDS: Insulin Glargine,Hum.rec.anlog 100 UNIT/ML 10 ML VIAL 30 UNIT SUBCUT (20:54)
[2023-12-14] MEDS: traZODone HCL 50 MG TABLET PO (20:54)
[2023-12-14] MEDS: lamoTRIgine 25 MG TABLET PO (20:54)
[2023-12-15] MEDS: Escitalopram Oxalate 20 MG TABLET PO (08:05)
[2023-12-15] MEDS: Thiamine HCL 100 MG TABLET PO (08:05)
[2023-12-15] MEDS: OLANZapine 5 MG TABLET PO (08:05)
[2023-12-15] MEDS: Nicotine Polacrilex 2 MG GUM 4 MG BUCCAL ×3 (08:05→19:33)
[2023-12-15] MEDS: Naltrexone HCl 50 MG TABLET PO (08:05)
[2023-12-15] MEDS: Multivitamin TABLET 1 TAB PO (08:05)
[2023-12-15] MEDS: Dextroamphetamine/Amphetamine XR 10 MG CAP.ER.24H PO (08:05)
[2023-12-15] MEDS: Nicotine Polacrilex 2 MG GUM BUCCAL ×3 (08:05→19:33)
[2023-12-15] MEDS: Nicotine 21 MG PATCH.TD24 TRANSDERMA (08:06)
[2023-12-15 08:15] VITALS: BP 131/91; PULSE 97; RESP 16; TEMP 36.8; O2SAT 98
[2023-12-15 08:15] LABS: Glucose, Whole Blood 255 mg/dL (60-115)
[2023-12-15] MEDS: Insulin Lispro 100 UNIT/ML 3 ML VIAL 20 UNIT SUBCUT (09:01)
[2023-12-15 10:04] VITALS: BMI 27.1
[2023-12-15 12:14] LABS: Glucose, Whole Blood 310 mg/dL (60-115)
[2023-12-15] MEDS: Insulin Lispro 100 UNIT/ML 3 ML VIAL 26 UNIT SUBCUT (12:25)
[2023-12-15] MEDS: hydrOXYzine HCL 25 MG TABLET PO ×2 (12:27→20:30)
[2023-12-15] MEDS: Dextroamphetamine/Amphetamine XR 5 MG CAP.ER.24H 15 MG PO (13:01)
[2023-12-15] MEDS: LORazepam 1 MG TABLET PO (14:41)
--- NOTE | 2023-12-15 16:33 | P.PNPSI_ITS ---
Subjective Subjective Date of Service: 12/15/23 Reason For Visit: Depression, polysubstance use disorder Subjective Notes: Conditional Voluntary Healthcare Proxy: No Guardianship: No Medical Problems Affecting Mental Status: No Interim History: Anxious. Interviewing with programs. Adderall working well. Dosage adjusted. XR 10 mg a.m. 15 mg p.m. Olanzapine change to prn as it is effecting POC readings and sliding scale. Pt approached tw later this afternoon stating his program interviewer informed him he could not attend the program on Adderall. Discussed alternatives. We may need to make a change to guanfacine (hx of Wellbutrin), ?Strattera, ?Vyvanse on discharge. Medication Compliance: Yes Side effects from medications: No Attending Groups: Yes Review of Systems Acute medical concerns: No Medical Review of Systems: unchanged Review of Systems Review of Systems Yes all other systems are reviewed and are negative Mental Status Exam Mental Status Exam Patient Appearance: Appropriate Patient Orientation: Person, Place, Time and Situation Level of Consciousness: Alert Patient Behavior: Talkative and Good Eye Contact Mood Description: Constricted Affect Description: Constricted Patient Cognition Impaired: No Ability to Follow Directions: Good Speech Pattern: Spontaneous Speech Memory Description: Intact Hallucinations: None Delusions: Not Present Thought Process: Distracted Thought Content: positive for Perseveration Depressive Symptoms: Difficulty Concentrating Judgement: Good Diagnostics Vital Signs (24Hr): Vital Signs - 24 hr 12/15/23 08:15 Temperature 98.2 F Pulse Rate 97 Respiratory Rate 16 Blood Pressure 131/91 H Pulse Oximetry 98 Oxygen Delivery Method Room Air BMI result Body Mass Index 27.1 Labs 12/06/23 16:45 12/08/23 09:07 Labs: Laboratory Results - last 48 hr 12/13/23 12/13/23 12/14/23 17:09 20:40 08:07 POC Glucose 124 H 114 202 H 12/14/23 12/14/23 12/14/23 12:06 17:23 20:48 POC Glucose 263 H 116 H 114 12/15/23 12/15/23 07:59 12:05 POC Glucose 255 H 310 H Medications Medications Current Medications Acetaminophen (Acetaminophen 325 Mg Tablet) 650 mg PO Q6H PRN PRN Reason: Headache/Pain Mild Scale (1-3) Last Admin: 12/10/23 16:29 Dose: 650 mg Al Hydroxide/Mg Hydroxide (Magnesium Hydrox/Alum Hydrox 30 Ml Oral.Susp) 30 ml PO Q6H PRN PRN Reason: Heartburn/Nausea Amphetamine/Dextroamphetamine (Dextroamphetamine/Amphetamine Xr 10 Mg Cap.Er.24h) 10 mg PO DAILY@0800 [facility] Amphetamine/Dextroamphetamine (Dextroamphetamine/Amphetamine Xr 5 Mg Cap.Er.24h) 15 mg PO DAILY@1400 [facility] Last Admin: 12/15/23 13:01 Dose: 15 mg Dextrose (Dextrose 50 % 25 Gm/50 Ml Syringe) 25 gm IVPUSH Q15M PRN; Protocol PRN Reason: per Hypoglycemia Standing Ord. Escitalopram Oxalate (Escitalopram Oxalate 20 Mg Tablet) 20 mg PO DAILY [facility] Last Admin: 12/15/23 08:05 Dose: 20 mg Glucose (Glucose Gel 15 Gm Gel..Gram.) 15 gm PO Q15M PRN; Protocol PRN Reason: per Hypoglycemia Standing Ord. Hydroxyzine HCl (Hydroxyzine Hcl 25 Mg Tablet) 25 mg PO Q6H PRN PRN Reason: Anxiety Last Admin: 12/15/23 12:27 Dose: 25 mg Insulin Glargine (Insulin Glargine,Hum.Rec.Anlog 100 Unit/Ml 10 Ml Vial) 30 unit SUBCUT BEDTIME [facility] Last Admin: 12/14/23 20:54 Dose: 30 unit Lamotrigine (Lamotrigine 25 Mg Tablet) 50 mg PO BEDTIME [facility] Lorazepam (Lorazepam 1 Mg Tablet) 1 mg PO Q4H PRN PRN Reason: Anxiety Last Admin: 12/15/23 14:41 Dose: 1 mg Magnesium Hydroxide (Milk Of Magnesia 30 Ml Oral.Susp) 30 ml PO DAILY PRN PRN Reason: Constipation Multivitamins/Vitamin C (Multivitamin Tablet) 1 tab PO DAILY [facility] Last Admin: 12/15/23 08:05 Dose: 1 tab Naltrexone HCl (Naltrexone Hcl 50 Mg Tablet) 50 mg PO DAILY [facility] Last Admin: 12/15/23 08:05 Dose: 50 mg Nicotine (Nicotine 21 Mg Patch.Td24) 21 mg TRANSDERMA DAILY [facility] Last Admin: 12/15/23 08:06 Dose: 21 mg Nicotine Polacrilex (Nicotine Polacrilex 2 Mg Gum) 4 mg BUCCAL Q2H PRN PRN Reason: Nicotine Cravings Last Admin: 12/15/23 13:03 Dose: 4 mg Nicotine Polacrilex (Nicotine Polacrilex 2 Mg Gum) 2 mg BUCCAL Q2H PRN PRN Reason: Nicotine Cravings Last Admin: 12/15/23 13:03 Dose: 2 mg Olanzapine (Olanzapine 5 Mg Tablet) 5 mg PO Q4H PRN PRN Reason: agitation Last Admin: 12/14/23 12:20 Dose: 5 mg Thiamine HCl (Thiamine Hcl 100 Mg Tablet) 100 mg PO DAILY [facility] Last Admin: 12/15/23 08:05 Dose: 100 mg Trazodone HCl (Trazodone Hcl 50 Mg Tablet) 50 mg PO BEDTIME MRX1 PRN PRN Reason: Insomnia Last Admin: 12/14/23 20:54 Dose: 50 mg Allergies Allergies Allergy/AdvReac Type Severity Reaction Status Date / Time No Known Allergies Allergy Verified 12/06/23 16:26 Assessment & Plan Assessment & Plan (1) Mood disorder: Status: Acute Code(s): F39 - Unspecified mood [affective] disorder Plan 33 yo male, history of opiate, alcohol, cocaine dependence with sobriety for ~4 years from opiates, 3.5 months from cocaine, alcohol. Pt asked to leave his program due to a conflict with a peer, temper issues which he would like assist with. Plan: Collateral contact Lexapro 10 mg daily Lamictal 25 mg HS Olanzapine 5 mg prn Pt given literature on bipolar disorder to review as he believes he has been manic in the past. 12/09/23- Continue current regime. 23: We talked at length regarding sobriety and he is unsure if perhaps a low- dose methadone might help with cravings versus long acting injectable of naltrexone. Ultimately prefer an addictions consult to discuss pros and cons of either. 2: no changes 12/13/23: Continue tx. No changes today. Addiction consult-AA connection request 12/14/23: Change Adderall to XR 10 mg bid 0800,1400 12/15/23: Change Adderall to XR 10 mg a.m. 15 mg 1400 Change Olanzapine to prn Patient educated on: medication risk/benefits and therapeutic strategies Informed Consent: understands Reason for continued inpatient stay Substantial Risk for: rapid decompensation Time Spent With Patient Time: Total time managing care of this patient today ____ minutes.
[2023-12-15 16:44] VITALS: BP 136/60; PULSE 97; RESP 18; TEMP 37.2; O2SAT 98
[2023-12-15 17:35] LABS: Glucose, Whole Blood 296 mg/dL (60-115)
[2023-12-15] MEDS: Insulin Lispro 100 UNIT/ML 3 ML VIAL SUBCUT ×2 (18:00→20:26)
[2023-12-15] MEDS: traZODone HCL 50 MG TABLET PO (20:25)
[2023-12-15] MEDS: lamoTRIgine 25 MG TABLET 50 MG PO (20:25)
[2023-12-15] MEDS: Insulin Glargine,Hum.rec.anlog 100 UNIT/ML 10 ML VIAL 30 UNIT SUBCUT (20:26)
[2023-12-15 21:13] LABS: Glucose, Whole Blood 205 mg/dL (60-115)
[2023-12-16 07:54] LABS: Glucose, Whole Blood 269 mg/dL (60-115)
[2023-12-16] MEDS: Multivitamin TABLET 1 TAB PO (08:00)
[2023-12-16] MEDS: Thiamine HCL 100 MG TABLET PO (08:00)
[2023-12-16] MEDS: Escitalopram Oxalate 20 MG TABLET PO (08:00)
[2023-12-16] MEDS: Nicotine Polacrilex 2 MG GUM 4 MG BUCCAL ×4 (08:01→20:28)
[2023-12-16] MEDS: Naltrexone HCl 50 MG TABLET PO (08:01)
[2023-12-16] MEDS: Nicotine Polacrilex 2 MG GUM BUCCAL ×4 (08:01→20:28)
[2023-12-16] MEDS: Nicotine 21 MG PATCH.TD24 TRANSDERMA (08:01)
[2023-12-16] MEDS: Dextroamphetamine/Amphetamine XR 10 MG CAP.ER.24H PO (08:01)
[2023-12-16 08:07] VITALS: BP 138/77; PULSE 80; RESP 18; TEMP 36.7; O2SAT 98
[2023-12-16] MEDS: Insulin Lispro 100 UNIT/ML 3 ML VIAL 23 UNIT SUBCUT (08:47)
--- NOTE | 2023-12-16 09:58 | P.PNPSI_ITS ---
Subjective Subjective Date of Service: 12/16/23 Reason For Visit: Depression, polysubstance use disorder Subjective Notes: Conditional Voluntary Healthcare Proxy: No Guardianship: No Medical Problems Affecting Mental Status: No Interim History: Reports anxiety improving. Reports recent adjustments in Adderall to be very helpful- able to read a book before bed last evening. I enjoyed it, I understood it, and I was calm enough to really comprehend it. Declined for admission with [facility] due to a previous warrant in [place] which he will need to resolve. Medication Compliance: Yes Side effects from medications: No Attending Groups: Yes Review of Systems Acute medical concerns: No Medical Review of Systems: unchanged Review of Systems Review of Systems Yes all other systems are reviewed and are negative Mental Status Exam Mental Status Exam Patient Appearance: Appropriate Patient Orientation: Person, Place, Time and Situation Level of Consciousness: Alert Patient Behavior: Talkative and Good Eye Contact Mood Description: Constricted Affect Description: Constricted Patient Cognition Impaired: No Ability to Follow Directions: Good Speech Pattern: Spontaneous Speech Memory Description: Intact Hallucinations: None Delusions: Not Present Thought Process: Distracted Thought Content: positive for Perseveration Depressive Symptoms: Difficulty Concentrating Judgement: Good Diagnostics Vital Signs (24Hr): Vital Signs - 24 hr 12/15/23 16:44 12/16/23 08:07 Temperature 99.0 F 98.1 F Pulse Rate 97 80 Respiratory Rate 18 18 Blood Pressure 136/60 138/77 Pulse Oximetry 98 98 Oxygen Delivery Method Room Air Room Air BMI result Body Mass Index 27.1 Labs 12/06/23 16:45 12/08/23 09:07 Labs: Laboratory Results - last 48 hr 12/14/23 12/14/23 12/14/23 12:06 17:23 20:48 POC Glucose 263 H 116 H 114 12/15/23 12/15/23 12/15/23 07:59 12:05 17:31 POC Glucose 255 H 310 H 296 H 12/15/23 12/16/23 20:12 07:51 POC Glucose 205 H 269 H Medications Medications Current Medications Acetaminophen (Acetaminophen 325 Mg Tablet) 650 mg PO Q6H PRN PRN Reason: Headache/Pain Mild Scale (1-3) Last Admin: 12/10/23 16:29 Dose: 650 mg Al Hydroxide/Mg Hydroxide (Magnesium Hydrox/Alum Hydrox 30 Ml Oral.Susp) 30 ml PO Q6H PRN PRN Reason: Heartburn/Nausea Amphetamine/Dextroamphetamine (Dextroamphetamine/Amphetamine Xr 10 Mg Cap.Er.24h) 10 mg PO DAILY@0800 [facility] Last Admin: 12/16/23 08:01 Dose: 10 mg Amphetamine/Dextroamphetamine (Dextroamphetamine/Amphetamine Xr 5 Mg Cap.Er.24h) 15 mg PO DAILY@1400 [facility] Last Admin: 12/15/23 13:01 Dose: 15 mg Dextrose (Dextrose 50 % 25 Gm/50 Ml Syringe) 25 gm IVPUSH Q15M PRN; Protocol PRN Reason: per Hypoglycemia Standing Ord. Escitalopram Oxalate (Escitalopram Oxalate 20 Mg Tablet) 20 mg PO DAILY [facility] Last Admin: 12/16/23 08:00 Dose: 20 mg Glucose (Glucose Gel 15 Gm Gel..Gram.) 15 gm PO Q15M PRN; Protocol PRN Reason: per Hypoglycemia Standing Ord. Hydroxyzine HCl (Hydroxyzine Hcl 25 Mg Tablet) 25 mg PO Q6H PRN PRN Reason: Anxiety Last Admin: 12/15/23 20:30 Dose: 25 mg Insulin Glargine (Insulin Glargine,Hum.Rec.Anlog 100 Unit/Ml 10 Ml Vial) 30 unit SUBCUT BEDTIME [facility] Last Admin: 12/15/23 20:26 Dose: 30 unit Lamotrigine (Lamotrigine 25 Mg Tablet) 50 mg PO BEDTIME [facility] Last Admin: 12/15/23 20:25 Dose: 50 mg Lorazepam (Lorazepam 1 Mg Tablet) 1 mg PO Q4H PRN PRN Reason: Anxiety Last Admin: 12/15/23 14:41 Dose: 1 mg Magnesium Hydroxide (Milk Of Magnesia 30 Ml Oral.Susp) 30 ml PO DAILY PRN PRN Reason: Constipation Multivitamins/Vitamin C (Multivitamin Tablet) 1 tab PO DAILY [facility] Last Admin: 12/16/23 08:00 Dose: 1 tab Naltrexone HCl (Naltrexone Hcl 50 Mg Tablet) 50 mg PO DAILY [facility] Last Admin: 12/16/23 08:01 Dose: 50 mg Nicotine (Nicotine 21 Mg Patch.Td24) 21 mg TRANSDERMA DAILY [facility] Last Admin: 12/16/23 08:01 Dose: 21 mg Nicotine Polacrilex (Nicotine Polacrilex 2 Mg Gum) 4 mg BUCCAL Q2H PRN PRN Reason: Nicotine Cravings Last Admin: 12/16/23 08:01 Dose: 4 mg Nicotine Polacrilex (Nicotine Polacrilex 2 Mg Gum) 2 mg BUCCAL Q2H PRN PRN Reason: Nicotine Cravings Last Admin: 12/16/23 08:01 Dose: 2 mg Olanzapine (Olanzapine 5 Mg Tablet) 5 mg PO Q4H PRN PRN Reason: agitation Last Admin: 12/14/23 12:20 Dose: 5 mg Thiamine HCl (Thiamine Hcl 100 Mg Tablet) 100 mg PO DAILY [facility] Last Admin: 12/16/23 08:00 Dose: 100 mg Trazodone HCl (Trazodone Hcl 50 Mg Tablet) 50 mg PO BEDTIME MRX1 PRN PRN Reason: Insomnia Last Admin: 12/15/23 20:25 Dose: 50 mg Allergies Allergies Allergy/AdvReac Type Severity Reaction Status Date / Time No Known Allergies Allergy Verified 12/06/23 16:26 Assessment & Plan Assessment & Plan (1) Mood disorder: Status: Acute Code(s): F39 - Unspecified mood [affective] disorder Plan 33 yo male, history of opiate, alcohol, cocaine dependence with sobriety for ~4 years from opiates, 3.5 months from cocaine, alcohol. Pt asked to leave his program due to a conflict with a peer, temper issues which he would like assist with. Plan: Collateral contact Lexapro 10 mg daily Lamictal 25 mg HS Olanzapine 5 mg prn Pt given literature on bipolar disorder to review as he believes he has been manic in the past. 12/09/23- Continue current regime. 23: We talked at length regarding sobriety and he is unsure if perhaps a low- dose methadone might help with cravings versus long acting injectable of naltrexone. Ultimately prefer an addictions consult to discuss pros and cons of either. 12/11: no changes 12/13/23: Continue tx. No changes today. Addiction consult-AA connection request 12/14/23: Change Adderall to XR 10 mg bid 0800,1400 12/15/23: Change Adderall to XR 10 mg a.m. 15 mg 1400 Change Olanzapine to prn 12/16/23: Continue tx Discussed options to exchange Adderall- Strattera, Guanfacine, Vyvanse Meeting with recovery team today scheduled to discuss aftercare planning. Patient educated on: therapeutic strategies Informed Consent: understands and further education needed Reason for continued inpatient stay Substantial Risk for: rapid decompensation Time Spent With Patient Time: Total time managing care of this patient today ____ minutes.
[2023-12-16] MEDS: hydrOXYzine HCL 25 MG TABLET PO (11:13)
[2023-12-16 12:34] LABS: Glucose, Whole Blood 282 mg/dL (60-115)
[2023-12-16] MEDS: Insulin Lispro 100 UNIT/ML 3 ML VIAL 16 UNIT SUBCUT (12:34)
[2023-12-16] MEDS: Dextroamphetamine/Amphetamine XR 5 MG CAP.ER.24H 15 MG PO (13:07)
[2023-12-16] MEDS: LORazepam 1 MG TABLET PO (16:14)
[2023-12-16 17:23] LABS: Glucose, Whole Blood 142 mg/dL (60-115)
[2023-12-16] MEDS: Insulin Lispro 100 UNIT/ML 3 ML VIAL 13 UNIT SUBCUT (17:38)
[2023-12-16 18:00] VITALS: BP 123/76; PULSE 97; RESP 18; TEMP 36.7; O2SAT 99
[2023-12-16] MEDS: lamoTRIgine 25 MG TABLET 50 MG PO (20:25)
[2023-12-16] MEDS: LORazepam 0.5 MG TABLET PO (20:25)
[2023-12-16] MEDS: Insulin Glargine,Hum.rec.anlog 100 UNIT/ML 10 ML VIAL 30 UNIT SUBCUT (20:26)
[2023-12-16] MEDS: traZODone HCL 50 MG TABLET PO (20:27)
[2023-12-16 20:41] LABS: Glucose, Whole Blood 105 mg/dL (60-115)
[2023-12-17 06:00] VITALS: BP 132/64; PULSE 100; RESP 18; TEMP 36.9; O2SAT 97
[2023-12-17] MEDS: Nicotine 21 MG PATCH.TD24 TRANSDERMA (08:01)
[2023-12-17] MEDS: Thiamine HCL 100 MG TABLET PO (08:02)
[2023-12-17] MEDS: Dextroamphetamine/Amphetamine XR 10 MG CAP.ER.24H PO (08:02)
[2023-12-17] MEDS: Escitalopram Oxalate 20 MG TABLET PO (08:02)
[2023-12-17] MEDS: Naltrexone HCl 50 MG TABLET PO (08:02)
[2023-12-17] MEDS: Multivitamin TABLET 1 TAB PO (08:02)
[2023-12-17] MEDS: Nicotine Polacrilex 2 MG GUM 4 MG BUCCAL ×2 (08:03→10:26)
[2023-12-17 08:45] LABS: Glucose, Whole Blood 246 mg/dL (60-115)
[2023-12-17] MEDS: Insulin Lispro 100 UNIT/ML 3 ML VIAL 21 UNIT SUBCUT (09:21)
[2023-12-17] MEDS: LORazepam 0.5 MG TABLET PO (10:26)
--- NOTE | 2023-12-17 10:30 | HO.PSYCHPN ---
Subjective Subjective Date of Service: 12/17/23 Reason For Visit: Depression, polysubstance use disorder Subjective Notes: Conditional Voluntary Healthcare Proxy: No Guardianship: No Medical Problems Affecting Mental Status: No Interim History: Pt working on sleep. Reports this to be the second a.m. recently he has been up for the day at 330am. Discussed increase of Trazodone Visable in milieu, participating and connecting with team and peers. Reports he is doing well. Medication Compliance: Yes Side effects from medications: No Attending Groups: Yes Review of Systems Acute medical concerns: No Medical Review of Systems: unchanged Review of Systems Review of Systems SUSAN~330am Mental Status Exam Mental Status Exam Patient Appearance: Appropriate Patient Orientation: Person, Place, Time and Situation Level of Consciousness: Alert Patient Behavior: Talkative and Good Eye Contact Mood Description: Constricted Affect Description: Constricted Patient Cognition Impaired: No Ability to Follow Directions: Good Speech Pattern: Spontaneous Speech Memory Description: Intact Hallucinations: None Delusions: Not Present Thought Process: Distracted Thought Content: positive for Perseveration Depressive Symptoms: Difficulty Concentrating Judgement: Good Diagnostics Vital Signs (24Hr): Vital Signs - 24 hr 12/16/23 18:00 12/17/23 06:00 Temperature 98.1 F 98.4 F Pulse Rate 97 100 Respiratory Rate 18 18 Blood Pressure 123/76 132/64 Pulse Oximetry 99 97 Oxygen Delivery Method Room Air Room Air BMI result Body Mass Index 27.1 Labs 12/06/23 16:45 12/08/23 09:07 Labs: Laboratory Results - last 48 hr 12/15/23 12/15/23 12/15/23 12:05 17:31 20:12 POC Glucose 310 H 296 H 205 H 12/16/23 12/16/23 12/16/23 07:51 12:07 17:15 POC Glucose 269 H 282 H 142 H 12/16/23 12/17/23 20:21 08:30 POC Glucose 105 246 H Medications Medications Current Medications Acetaminophen (Acetaminophen 325 Mg Tablet) 650 mg PO Q6H PRN PRN Reason: Headache/Pain Mild Scale (1-3) Last Admin: 12/10/23 16:29 Dose: 650 mg Al Hydroxide/Mg Hydroxide (Magnesium Hydrox/Alum Hydrox 30 Ml Oral.Susp) 30 ml PO Q6H PRN PRN Reason: Heartburn/Nausea Amphetamine/Dextroamphetamine (Dextroamphetamine/Amphetamine Xr 10 Mg Cap.Er.24h) 10 mg PO DAILY@0800 [facility] Last Admin: 12/17/23 08:02 Dose: 10 mg Amphetamine/Dextroamphetamine (Dextroamphetamine/Amphetamine Xr 5 Mg Cap.Er.24h) 15 mg PO DAILY@1400 [facility] Last Admin: 12/16/23 13:07 Dose: 15 mg Dextrose (Dextrose 50 % 25 Gm/50 Ml Syringe) 25 gm IVPUSH Q15M PRN; Protocol PRN Reason: per Hypoglycemia Standing Ord. Escitalopram Oxalate (Escitalopram Oxalate 20 Mg Tablet) 20 mg PO DAILY [facility] Last Admin: 12/17/23 08:02 Dose: 20 mg Glucose (Glucose Gel 15 Gm Gel..Gram.) 15 gm PO Q15M PRN; Protocol PRN Reason: per Hypoglycemia Standing Ord. Hydroxyzine HCl (Hydroxyzine Hcl 25 Mg Tablet) 25 mg PO Q6H PRN PRN Reason: Anxiety Last Admin: 12/16/23 11:13 Dose: 25 mg Insulin Glargine (Insulin Glargine,Hum.Rec.Anlog 100 Unit/Ml 10 Ml Vial) 30 unit SUBCUT BEDTIME [facility] Last Admin: 12/16/23 20:26 Dose: 30 unit Lamotrigine (Lamotrigine 25 Mg Tablet) 50 mg PO BEDTIME [facility] Last Admin: 12/16/23 20:25 Dose: 50 mg Lorazepam (Lorazepam 0.5 Mg Tablet) 0.5 mg PO Q8H PRN PRN Reason: Anxiety Last Admin: 12/17/23 10:26 Dose: 0.5 mg Magnesium Hydroxide (Milk Of Magnesia 30 Ml Oral.Susp) 30 ml PO DAILY PRN PRN Reason: Constipation Multivitamins/Vitamin C (Multivitamin Tablet) 1 tab PO DAILY [facility] Last Admin: 12/17/23 08:02 Dose: 1 tab Naltrexone HCl (Naltrexone Hcl 50 Mg Tablet) 50 mg PO DAILY [facility] Last Admin: 12/17/23 08:02 Dose: 50 mg Nicotine (Nicotine 21 Mg Patch.Td24) 21 mg TRANSDERMA DAILY [facility] Last Admin: 12/17/23 08:01 Dose: 21 mg Nicotine Polacrilex (Nicotine Polacrilex 2 Mg Gum) 4 mg BUCCAL Q2H PRN PRN Reason: Nicotine Cravings Last Admin: 12/17/23 10:26 Dose: 4 mg Nicotine Polacrilex (Nicotine Polacrilex 2 Mg Gum) 2 mg BUCCAL Q2H PRN PRN Reason: Nicotine Cravings Last Admin: 12/16/23 20:28 Dose: 2 mg Olanzapine (Olanzapine 5 Mg Tablet) 5 mg PO Q4H PRN PRN Reason: agitation Last Admin: 12/14/23 12:20 Dose: 5 mg Thiamine HCl (Thiamine Hcl 100 Mg Tablet) 100 mg PO DAILY [facility] Last Admin: 12/17/23 08:02 Dose: 100 mg Trazodone HCl (Trazodone Hcl 50 Mg Tablet) 50 mg PO BEDTIME [facility] PRN PRN Reason: Insomnia Last Admin: 12/16/23 20:27 Dose: 50 mg Allergies Allergies Allergy/AdvReac Type Severity Reaction Status Date / Time No Known Allergies Allergy Verified 12/06/23 16:26 Assessment & Plan Assessment & Plan (1) Mood disorder: Status: Acute Code(s): F39 - Unspecified mood [affective] disorder Plan 33 yo male, history of opiate, alcohol, cocaine dependence with sobriety for ~4 years from opiates, 3.5 months from cocaine, alcohol. Pt asked to leave his program due to a conflict with a peer, temper issues which he would like assist with. Plan: Collateral contact Lexapro 10 mg daily Lamictal 25 mg HS Olanzapine 5 mg prn Pt given literature on bipolar disorder to review as he believes he has been manic in the past. 12/09/23- Continue current regime. 23: We talked at length regarding sobriety and he is unsure if perhaps a low-dose methadone might help with cravings versus long acting injectable of naltrexone. Ultimately prefer an addictions consult to discuss pros and cons of either. 2: no changes 12/13/23: Continue tx. No changes today. Addiction consult-AA connection request 12/14/23: Change Adderall to XR 10 mg bid 0800,1400 12/15/23: Change Adderall to XR 10 mg a.m. 15 mg 1400 Change Olanzapine to prn 12/16/23: Continue tx Discussed options to exchange Adderall- Strattera, Guanfacine, Vyvanse Meeting with recovery team today scheduled to discuss aftercare planning. 12/17/23: Increase Trazodone to 100 mg HS Patient educated on: medication risk/benefits and therapeutic strategies Informed Consent: understands and further education needed Reason for continued inpatient stay Substantial Risk for: rapid decompensation Time Spent With Patient Time: Total time managing care of this patient today ____ minutes.
[2023-12-17 12:23] LABS: Glucose, Whole Blood 199 mg/dL (60-115)
[2023-12-17] MEDS: Insulin Lispro 100 UNIT/ML 3 ML VIAL 16 UNIT SUBCUT (12:46)
[2023-12-17] MEDS: Dextroamphetamine/Amphetamine XR 5 MG CAP.ER.24H 15 MG PO (13:16)
[2023-12-17] MEDS: Nicotine Polacrilex Lozenge 2 MG LOZENGE 6 MG BUCCAL ×3 (13:18→19:30)
[2023-12-17 16:37] VITALS: BP 147/89; PULSE 106; TEMP 36.7; O2SAT 98
[2023-12-17 17:08] LABS: Glucose, Whole Blood 280 mg/dL (60-115)
[2023-12-17] MEDS: Insulin Lispro 100 UNIT/ML 3 ML VIAL 18 UNIT SUBCUT (17:31)
[2023-12-17] MEDS: hydrOXYzine HCL 25 MG TABLET PO (19:30)
[2023-12-17 21:08] LABS: Glucose, Whole Blood 254 mg/dL (60-115)
[2023-12-17] MEDS: Acetaminophen 325 MG TABLET 650 MG PO (21:26)
[2023-12-17] MEDS: traZODone HCL 100 MG TABLET PO (21:27)
[2023-12-17] MEDS: lamoTRIgine 25 MG TABLET 50 MG PO (21:27)
[2023-12-17] MEDS: Insulin Glargine,Hum.rec.anlog 100 UNIT/ML 10 ML VIAL 30 UNIT SUBCUT (21:28)
[2023-12-17] MEDS: Insulin Lispro 100 UNIT/ML 3 ML VIAL 8 UNIT SUBCUT (21:29)
[2023-12-18 07:44] VITALS: BP 116/55; PULSE 89; RESP 18; TEMP 36.8; O2SAT 97
[2023-12-18] MEDS: Thiamine HCL 100 MG TABLET PO (08:09)
[2023-12-18] MEDS: Dextroamphetamine/Amphetamine XR 10 MG CAP.ER.24H PO (08:09)
[2023-12-18] MEDS: Multivitamin TABLET 1 TAB PO (08:09)
[2023-12-18] MEDS: Naltrexone HCl 50 MG TABLET PO (08:09)
[2023-12-18] MEDS: Nicotine Polacrilex Lozenge 2 MG LOZENGE 6 MG BUCCAL ×3 (08:09→19:52)
[2023-12-18] MEDS: Escitalopram Oxalate 20 MG TABLET PO (08:09)
[2023-12-18] MEDS: Nicotine 21 MG PATCH.TD24 TRANSDERMA (08:13)
[2023-12-18 08:46] LABS: Glucose, Whole Blood 269 mg/dL (60-115)
[2023-12-18] MEDS: Insulin Lispro 100 UNIT/ML 3 ML VIAL 23 UNIT SUBCUT (08:54)
[2023-12-18] MEDS: LORazepam 0.5 MG TABLET PO ×2 (11:04→18:48)
[2023-12-18 12:17] LABS: Glucose, Whole Blood 82 mg/dL (60-115)
[2023-12-18] MEDS: Insulin Lispro 100 UNIT/ML 3 ML VIAL 8 UNIT SUBCUT (12:43)
[2023-12-18] MEDS: Dextroamphetamine/Amphetamine XR 5 MG CAP.ER.24H 15 MG PO (13:11)
[2023-12-18] MEDS: Acetaminophen 325 MG TABLET 650 MG PO (16:29)
[2023-12-18 17:26] VITALS: BP 138/68; PULSE 93; RESP 18; TEMP 36.2; O2SAT 99
[2023-12-18 17:40] LABS: Glucose, Whole Blood 109 mg/dL (60-115)
[2023-12-18] MEDS: Insulin Lispro 100 UNIT/ML 3 ML VIAL 7 UNIT SUBCUT (17:51)
--- NOTE | 2023-12-18 19:27 | P.PNPSI_ITS ---
Subjective Subjective Date of Service: 12/18/23 Reason For Visit: Depression, polysubstance use disorder Subjective Notes: Conditional Voluntary Interim History: Sleep continues to be an issue. Awake at 4am. Discussed Valproate trial and change of time of afternoon stimulant. Medication Compliance: Yes Side effects from medications: No Attending Groups: Yes Review of Systems Acute medical concerns: No Medical Review of Systems: unchanged Review of Systems Review of Systems Yes all other systems are reviewed and are negative Mental Status Exam Mental Status Exam Patient Appearance: Appropriate Patient Orientation: Person, Place, Time and Situation Level of Consciousness: Alert Patient Behavior: Talkative and Good Eye Contact Mood Description: Constricted Affect Description: Constricted Patient Cognition Impaired: No Ability to Follow Directions: Good Speech Pattern: Spontaneous Speech Memory Description: Intact Hallucinations: None Delusions: Not Present Thought Process: Distracted Thought Content: positive for Perseveration Depressive Symptoms: Difficulty Concentrating Judgement: Good Diagnostics Vital Signs (24Hr): Vital Signs - 24 hr 12/18/23 07:44 12/18/23 17:26 Temperature 98.2 F 97.2 F Pulse Rate 89 93 Respiratory Rate 18 18 Blood Pressure 116/55 L 138/68 Pulse Oximetry 97 99 Oxygen Delivery Method Room Air Room Air BMI result Body Mass Index 27.1 Labs 12/06/23 16:45 12/08/23 09:07 Labs: Laboratory Results - last 48 hr 12/16/23 12/17/23 12/17/23 20:21 08:30 12:06 POC Glucose 105 246 H 199 H 12/17/23 12/17/23 12/18/23 17:00 21:04 07:59 POC Glucose 280 H 254 H 269 H 12/18/23 12/18/23 12:04 17:32 POC Glucose 82 109 Medications Medications Current Medications Acetaminophen (Acetaminophen 325 Mg Tablet) 650 mg PO Q6H PRN PRN Reason: Headache/Pain Mild Scale (1-3) Last Admin: 12/18/23 16:29 Dose: 650 mg Al Hydroxide/Mg Hydroxide (Magnesium Hydrox/Alum Hydrox 30 Ml Oral.Susp) 30 ml PO Q6H PRN PRN Reason: Heartburn/Nausea Amphetamine/Dextroamphetamine (Dextroamphetamine/Amphetamine Xr 10 Mg Cap.Er.24h) 15 mg PO DAILY@0800 [facility] Amphetamine/Dextroamphetamine (Dextroamphetamine/Amphetamine Xr 5 Mg Cap.Er.24h) 15 mg PO DAILY@1300 [facility] Dextrose (Dextrose 50 % 25 Gm/50 Ml Syringe) 25 gm IVPUSH Q15M PRN; Protocol PRN Reason: per Hypoglycemia Standing Ord. Divalproex Sodium (Divalproex Sodium Er 250 Mg Tab.Er.24h) 750 mg PO BEDTIME [facility] Escitalopram Oxalate (Escitalopram Oxalate 20 Mg Tablet) 20 mg PO DAILY [facility] Last Admin: 12/18/23 08:09 Dose: 20 mg Glucose (Glucose Gel 15 Gm Gel..Gram.) 15 gm PO Q15M PRN; Protocol PRN Reason: per Hypoglycemia Standing Ord. Hydroxyzine HCl (Hydroxyzine Hcl 25 Mg Tablet) 25 mg PO Q6H PRN PRN Reason: Anxiety Last Admin: 12/17/23 19:30 Dose: 25 mg Insulin Glargine (Insulin Glargine,Hum.Rec.Anlog 100 Unit/Ml 10 Ml Vial) 30 unit SUBCUT BEDTIME [facility] Last Admin: 12/17/23 21:28 Dose: 30 unit Lamotrigine (Lamotrigine 25 Mg Tablet) 50 mg PO BEDTIME [facility] Last Admin: 12/17/23 21:27 Dose: 50 mg Lorazepam (Lorazepam 0.5 Mg Tablet) 0.5 mg PO Q8H PRN PRN Reason: Anxiety Last Admin: 12/18/23 18:48 Dose: 0.5 mg Magnesium Hydroxide (Milk Of Magnesia 30 Ml Oral.Susp) 30 ml PO DAILY PRN PRN Reason: Constipation Multivitamins/Vitamin C (Multivitamin Tablet) 1 tab PO DAILY [facility] Last Admin: 12/18/23 08:09 Dose: 1 tab Naltrexone HCl (Naltrexone Hcl 50 Mg Tablet) 50 mg PO DAILY [facility] Last Admin: 12/18/23 08:09 Dose: 50 mg Nicotine (Nicotine 21 Mg Patch.Td24) 21 mg TRANSDERMA DAILY [facility] Last Admin: 12/18/23 08:13 Dose: 21 mg Nicotine Polacrilex (Nicotine Polacrilex Lozenge 2 Mg Lozenge) 6 mg BUCCAL Q2H PRN PRN Reason: Nicotine Cravings Last Admin: 12/18/23 14:39 Dose: 6 mg Olanzapine (Olanzapine 5 Mg Tablet) 5 mg PO Q4H PRN PRN Reason: agitation Last Admin: 12/14/23 12:20 Dose: 5 mg Thiamine HCl (Thiamine Hcl 100 Mg Tablet) 100 mg PO DAILY [facility] Last Admin: 12/18/23 08:09 Dose: 100 mg Trazodone HCl (Trazodone Hcl 100 Mg Tablet) 100 mg PO BEDTIME [facility] Last Admin: 12/17/23 21:27 Dose: 100 mg Allergies Allergies Allergy/AdvReac Type Severity Reaction Status Date / Time No Known Allergies Allergy Verified 12/06/23 16:26 Assessment & Plan Assessment & Plan (1) Mood disorder: Status: Acute Code(s): F39 - Unspecified mood [affective] disorder Plan 33 yo male, history of opiate, alcohol, cocaine dependence with sobriety for ~4 years from opiates, 3.5 months from cocaine, alcohol. Pt asked to leave his program due to a conflict with a peer, temper issues which he would like assist with. Plan: Collateral contact Lexapro 10 mg daily Lamictal 25 mg HS Olanzapine 5 mg prn Pt given literature on bipolar disorder to review as he believes he has been manic in the past. 12/09/23- Continue current regime. 12/10: We talked at length regarding sobriety and he is unsure if perhaps a low- dose methadone might help with cravings versus long acting injectable of naltrexone. Ultimately prefer an addictions consult to discuss pros and cons of either. 12/11: no changes 12/13/23: Continue tx. No changes today. Addiction consult-AA connection request 12/14/23: Change Adderall to XR 10 mg bid 0800,1400 12/15/23: Change Adderall to XR 10 mg a.m. 15 mg 1400 Change Olanzapine to prn 12/16/23: Continue tx Discussed options to exchange Adderall- Strattera, Guanfacine, Vyvanse Meeting with recovery team today scheduled to discuss aftercare planning. 12/17/23: Increase Trazodone to 100 mg HS 12/18/23: Depakote ER 750 mg HS Adderall XR 15 0800, 1300 Reason for continued inpatient stay Substantial Risk for: rapid decompensation Time Spent With Patient Time: Total time managing care of this patient today ____ minutes.
[2023-12-18 20:42] LABS: Glucose, Whole Blood 335 mg/dL (60-115)
[2023-12-18] MEDS: Divalproex Sodium ER 250 MG TAB.ER.24H 750 MG PO (21:17)
[2023-12-18] MEDS: lamoTRIgine 25 MG TABLET PO (21:18)
[2023-12-18] MEDS: diphenhydrAMINE HCL 25 MG CAPSULE PO (21:18)
[2023-12-18] MEDS: Insulin Lispro 100 UNIT/ML 3 ML VIAL 13 UNIT SUBCUT (21:18)
[2023-12-18] MEDS: Insulin Glargine,Hum.rec.anlog 100 UNIT/ML 10 ML VIAL 30 UNIT SUBCUT (21:18)
[2023-12-18] MEDS: traZODone HCL 100 MG TABLET PO (21:18)
[2023-12-19 08:03] VITALS: BP 120/70; PULSE 98; RESP 16; TEMP 36.4; O2SAT 96
[2023-12-19 08:10] LABS: Glucose, Whole Blood 209 mg/dL (60-115)
[2023-12-19] MEDS: Nicotine 21 MG PATCH.TD24 TRANSDERMA (08:15)
[2023-12-19] MEDS: Thiamine HCL 100 MG TABLET PO (08:16)
[2023-12-19] MEDS: Multivitamin TABLET 1 TAB PO (08:16)
[2023-12-19] MEDS: Naltrexone HCl 50 MG TABLET PO (08:16)
[2023-12-19] MEDS: Dextroamphetamine/Amphetamine XR 5 MG CAP.ER.24H 15 MG PO ×2 (08:16→13:14)
[2023-12-19] MEDS: Escitalopram Oxalate 20 MG TABLET PO (08:16)
--- NOTE | 2023-12-19 09:18 | P.PNPSI_ITS ---
Subjective Subjective Date of Service: 12/19/23 Reason For Visit: Depression, polysubstance use disorder Subjective Notes: Conditional Voluntary Interim History: Reviewed with Dr. Ochoa. Pt reports feeling okay today; pt stated, my anxiety is lower and I'm not really feeling depressed . Pt reports last evening prior to taking his night time medications he developed a rash on my face and chest but it went away with benadryl . Pt reports he believes this was either d/t the laundry detergent or new shampoo he has used that day. Patient had not taken lamicital at the time of the rash; continue to monitor to see if rash occurs again. Medication Compliance: Yes Review of Systems Constitutional: Reports as per HPI Eyes: Reports as per HPI Reports as per HPI Cardiovascular: Reports as per HPI Respiratory: Reports as per HPI Gastrointestinal: Reports as per HPI Genitourinary: Reports as per HPI Musculoskeletal: Reports as per HPI Skin/Breast: Reports as per HPI Reports as per HPI Psychiatric: Reports as per HPI Endocrine: Reports as per HPI Hematologic/Lymphatic: Reports as per HPI Allergic/Immunologic: Reports as per HPI Mental Status Exam Mental Status Exam Narrative: Pt is alert and oriented; behavior is cooperative and calm; dressed in casual attire; mood is described as okay ; eye contact appropriate; Speech is normal rate, volume and prosody and not pressured; thought process is organized; Thought content is on tx; denies SI/HI/AH/VH. Diagnostics Vital Signs (24Hr): Vital Signs - 24 hr 12/18/23 17:26 12/19/23 08:03 Temperature 97.2 F 97.5 F Pulse Rate 93 98 Respiratory Rate 18 16 Blood Pressure 138/68 120/70 Pulse Oximetry 99 96 Oxygen Delivery Method Room Air Room Air BMI result Body Mass Index 27.1 Labs 12/06/23 16:45 12/08/23 09:07 Labs: Laboratory Results - last 48 hr 12/17/23 12/17/23 12/17/23 12:06 17:00 21:04 POC Glucose 199 H 280 H 254 H 12/18/23 12/18/23 12/18/23 07:59 12:04 17:32 POC Glucose 269 H 82 109 12/18/23 12/19/23 20:33 08:06 POC Glucose 335 H 209 H Medications Medications Current Medications Acetaminophen (Acetaminophen 325 Mg Tablet) 650 mg PO Q6H PRN PRN Reason: Headache/Pain Mild Scale (1-3) Last Admin: 12/18/23 16:29 Dose: 650 mg Al Hydroxide/Mg Hydroxide (Magnesium Hydrox/Alum Hydrox 30 Ml Oral.Susp) 30 ml PO Q6H PRN PRN Reason: Heartburn/Nausea Amphetamine/Dextroamphetamine (Dextroamphetamine/Amphetamine Xr 5 Mg Cap.Er.24h) 15 mg PO DAILY@1300 [facility] Amphetamine/Dextroamphetamine (Dextroamphetamine/Amphetamine Xr 5 Mg Cap.Er.24h) 15 mg PO DAILY@0800 [facility] Last Admin: 12/19/23 08:16 Dose: 15 mg Dextrose (Dextrose 50 % 25 Gm/50 Ml Syringe) 25 gm IVPUSH Q15M PRN; Protocol PRN Reason: per Hypoglycemia Standing Ord. Diphenhydramine HCl (Diphenhydramine Hcl 25 Mg Capsule) 25 mg PO Q6H PRN PRN Reason: Rash Last Admin: 12/18/23 21:18 Dose: 25 mg Divalproex Sodium (Divalproex Sodium Er 250 Mg Tab.Er.24h) 750 mg PO BEDTIME [facility] Last Admin: 12/18/23 21:17 Dose: 750 mg Escitalopram Oxalate (Escitalopram Oxalate 20 Mg Tablet) 20 mg PO DAILY [facility] Last Admin: 12/19/23 08:16 Dose: 20 mg Glucose (Glucose Gel 15 Gm Gel..Gram.) 15 gm PO Q15M PRN; Protocol PRN Reason: per Hypoglycemia Standing Ord. Hydroxyzine HCl (Hydroxyzine Hcl 25 Mg Tablet) 25 mg PO Q6H PRN PRN Reason: Anxiety Last Admin: 12/17/23 19:30 Dose: 25 mg Insulin Glargine (Insulin Glargine,Hum.Rec.Anlog 100 Unit/Ml 10 Ml Vial) 30 unit SUBCUT BEDTIME [facility] Last Admin: 12/18/23 21:18 Dose: 30 unit Lamotrigine (Lamotrigine 25 Mg Tablet) 25 mg PO BEDTIME [facility] Last Admin: 12/18/23 21:18 Dose: 25 mg Lorazepam (Lorazepam 0.5 Mg Tablet) 0.5 mg PO Q8H PRN PRN Reason: Anxiety Last Admin: 12/18/23 18:48 Dose: 0.5 mg Magnesium Hydroxide (Milk Of Magnesia 30 Ml Oral.Susp) 30 ml PO DAILY PRN PRN Reason: Constipation Multivitamins/Vitamin C (Multivitamin Tablet) 1 tab PO DAILY [facility] Last Admin: 12/19/23 08:16 Dose: 1 tab Naltrexone HCl (Naltrexone Hcl 50 Mg Tablet) 50 mg PO DAILY [facility] Last Admin: 12/19/23 08:16 Dose: 50 mg Nicotine (Nicotine 21 Mg Patch.Td24) 21 mg TRANSDERMA DAILY [facility] Last Admin: 12/19/23 08:15 Dose: 21 mg Nicotine Polacrilex (Nicotine Polacrilex Lozenge 2 Mg Lozenge) 6 mg BUCCAL Q2H PRN PRN Reason: Nicotine Cravings Last Admin: 12/18/23 19:52 Dose: 6 mg Olanzapine (Olanzapine 5 Mg Tablet) 5 mg PO Q4H PRN PRN Reason: agitation Last Admin: 12/14/23 12:20 Dose: 5 mg Thiamine HCl (Thiamine Hcl 100 Mg Tablet) 100 mg PO DAILY [facility] Last Admin: 12/19/23 08:16 Dose: 100 mg Trazodone HCl (Trazodone Hcl 100 Mg Tablet) 100 mg PO BEDTIME [facility] Last Admin: 12/18/23 21:18 Dose: 100 mg Allergies Allergies Allergy/AdvReac Type Severity Reaction Status Date / Time No Known Allergies Allergy Verified 12/06/23 16:26 Assessment & Plan Assessment & Plan (1) Mood disorder: Status: Acute Code(s): F39 - Unspecified mood [affective] disorder Plan 33 yo male, history of opiate, alcohol, cocaine dependence with sobriety for ~4 years from opiates, 3.5 months from cocaine, alcohol. Pt asked to leave his program due to a conflict with a peer, temper issues which he would like assist with. Plan: Collateral contact Lexapro 10 mg daily Lamictal 25 mg HS Olanzapine 5 mg prn Pt given literature on bipolar disorder to review as he believes he has been manic in the past. 12/09/23- Continue current regime. 23: We talked at length regarding sobriety and he is unsure if perhaps a low- dose methadone might help with cravings versus long acting injectable of naltrexone. Ultimately prefer an addictions consult to discuss pros and cons of either. 24: no changes 12/13/23: Continue tx. No changes today. Addiction consult-AA connection request 12/14/23: Change Adderall to XR 10 mg bid 0800,1400 12/15/23: Change Adderall to XR 10 mg a.m. 15 mg 1400 Change Olanzapine to prn 12/16/23: Continue tx Discussed options to exchange Adderall- Strattval, Guanfacine, Vyvanse Meeting with recovery team today scheduled to discuss aftercare planning. 12/17/23: Increase Trazodone to 100 mg HS 12/18/23: Depakote ER 750 mg HS Adderall XR 15 0800, 1300 12/19: monitor for reoccurring rash. continue current tx plan. Patient educated on: diagnosis and medication risk/benefits Informed Consent: understands Reason for continued inpatient stay Substantial Risk for: med/psych decompensation Time Spent With Patient Time: Total time managing care of this patient today _20___ minutes.
[2023-12-19] MEDS: Nicotine Polacrilex Lozenge 2 MG LOZENGE 6 MG BUCCAL ×4 (09:34→21:03)
[2023-12-19] MEDS: Insulin Lispro 100 UNIT/ML 3 ML VIAL 20 UNIT SUBCUT (09:34)
[2023-12-19 12:33] LABS: Glucose, Whole Blood 136 mg/dL (60-115)
[2023-12-19] MEDS: Insulin Lispro 100 UNIT/ML 3 ML VIAL 9 UNIT SUBCUT (13:15)
[2023-12-19] MEDS: LORazepam 0.5 MG TABLET PO (16:21)
[2023-12-19 17:22] LABS: Glucose, Whole Blood 90 mg/dL (60-115)
[2023-12-19] MEDS: Insulin Lispro 100 UNIT/ML 3 ML VIAL 10 UNIT SUBCUT (17:56)
[2023-12-19 18:00] VITALS: BP 121/64; PULSE 86; RESP 18; TEMP 36.8; O2SAT 98
[2023-12-19 20:24] LABS: Glucose, Whole Blood 167 mg/dL (60-115)
[2023-12-19] MEDS: traZODone HCL 100 MG TABLET PO (20:57)
[2023-12-19] MEDS: lamoTRIgine 25 MG TABLET PO (20:57)
[2023-12-19] MEDS: Divalproex Sodium ER 250 MG TAB.ER.24H 750 MG PO (20:57)
[2023-12-19] MEDS: Insulin Glargine,Hum.rec.anlog 100 UNIT/ML 10 ML VIAL 30 UNIT SUBCUT (20:59)
[2023-12-19] MEDS: Insulin Lispro 100 UNIT/ML 3 ML VIAL SUBCUT (21:15)
[2023-12-20 08:05] VITALS: BP 116/62; PULSE 86; RESP 16; TEMP 36.8; O2SAT 99
[2023-12-20] MEDS: Naltrexone HCl 50 MG TABLET PO (08:25)
[2023-12-20] MEDS: Multivitamin TABLET 1 TAB PO (08:25)
[2023-12-20] MEDS: Escitalopram Oxalate 20 MG TABLET PO (08:25)
[2023-12-20] MEDS: Nicotine 21 MG PATCH.TD24 TRANSDERMA (08:25)
[2023-12-20] MEDS: Thiamine HCL 100 MG TABLET PO (08:25)
[2023-12-20] MEDS: Nicotine Polacrilex Lozenge 2 MG LOZENGE 6 MG BUCCAL ×3 (08:26→18:38)
[2023-12-20] MEDS: Dextroamphetamine/Amphetamine XR 5 MG CAP.ER.24H 15 MG PO ×2 (08:26→12:51)
[2023-12-20 08:55] LABS: Glucose, Whole Blood 179 mg/dL (60-115)
[2023-12-20] MEDS: Insulin Lispro 100 UNIT/ML 3 ML VIAL 19 UNIT SUBCUT (09:13)
[2023-12-20 12:38] LABS: Glucose, Whole Blood 112 mg/dL (60-115)
[2023-12-20] MEDS: Insulin Lispro 100 UNIT/ML 3 ML VIAL 8 UNIT SUBCUT (13:04)
[2023-12-20 15:50] VITALS: BP 129/73; PULSE 95; RESP 18; TEMP 37.1; O2SAT 99
[2023-12-20] MEDS: LORazepam 0.5 MG TABLET PO (15:50)
[2023-12-20] MEDS: Propranolol HCL 10 MG TABLET 5 MG PO ×2 (15:54→22:08)
--- NOTE | 2023-12-20 16:05 | PC.NURSE ---
Assumed care of pt @ 15:30, pt requested PRN Ativan, reports anxiety 06/16 @ this time. Also provided monograph for Propanolol as pt just started this med today.
--- NOTE | 2023-12-20 16:29 | P.PNPSI_ITS ---
Subjective Subjective Date of Service: 12/20/23 Reason For Visit: Depression, polysubstance use disorder Subjective Notes: Conditional Voluntary Healthcare Proxy: No Guardianship: No Medical Problems Affecting Mental Status: No Interim History: Improved sleep. Rash on face is resolved Anxiety still present. Planning DC on 12/22. Medication Compliance: Yes Side effects from medications: No Attending Groups: Yes Review of Systems Acute medical concerns: No Medical Review of Systems: unchanged Review of Systems Review of Systems Yes all other systems are reviewed and are negative Mental Status Exam Mental Status Exam Patient Appearance: Appropriate Patient Orientation: Person, Place, Time and Situation Level of Consciousness: Alert Patient Behavior: Talkative and Good Eye Contact Mood Description: Constricted Affect Description: Constricted Patient Cognition Impaired: No Ability to Follow Directions: Good Speech Pattern: Spontaneous Speech Memory Description: Intact Hallucinations: None Delusions: Not Present Thought Process: Distracted Thought Content: positive for Perseveration Depressive Symptoms: Difficulty Concentrating Judgement: Good Diagnostics Vital Signs (24Hr): Vital Signs - 24 hr 12/19/23 18:00 12/20/23 08:05 12/20/23 15:50 Temperature 98.2 F 98.2 F 98.8 F Pulse Rate 86 86 95 Respiratory Rate 18 16 18 Blood Pressure 121/64 116/62 129/73 Pulse Oximetry 98 99 99 Oxygen Delivery Method Room Air Room Air Room Air BMI result Body Mass Index 27.1 Labs 12/06/23 16:45 12/08/23 09:07 Labs: Laboratory Results - last 48 hr 12/18/23 12/18/23 12/19/23 17:32 20:33 08:06 POC Glucose 109 335 H 209 H 12/19/23 12/19/23 12/19/23 12:21 17:09 20:21 POC Glucose 136 H 90 167 H 12/20/23 12/20/23 08:33 12:20 POC Glucose 179 H 112 Medications Medications Current Medications Acetaminophen (Acetaminophen 325 Mg Tablet) 650 mg PO Q6H PRN PRN Reason: Headache/Pain Mild Scale (1-3) Last Admin: 12/18/23 16:29 Dose: 650 mg Al Hydroxide/Mg Hydroxide (Magnesium Hydrox/Alum Hydrox 30 Ml Oral.Susp) 30 ml PO Q6H PRN PRN Reason: Heartburn/Nausea Amphetamine/Dextroamphetamine (Dextroamphetamine/Amphetamine Xr 5 Mg Cap.Er.24h) 15 mg PO DAILY@1300 [facility] Last Admin: 12/20/23 12:51 Dose: 15 mg Amphetamine/Dextroamphetamine (Dextroamphetamine/Amphetamine Xr 5 Mg Cap.Er.24h) 15 mg PO DAILY@0800 [facility] Last Admin: 12/20/23 08:26 Dose: 15 mg Dextrose (Dextrose 50 % 25 Gm/50 Ml Syringe) 25 gm IVPUSH Q15M PRN; Protocol PRN Reason: per Hypoglycemia Standing Ord. Diphenhydramine HCl (Diphenhydramine Hcl 25 Mg Capsule) 25 mg PO Q6H PRN PRN Reason: Rash Last Admin: 12/18/23 21:18 Dose: 25 mg Divalproex Sodium (Divalproex Sodium Er 250 Mg Tab.Er.24h) 750 mg PO BEDTIME [facility] Last Admin: 12/19/23 20:57 Dose: 750 mg Escitalopram Oxalate (Escitalopram Oxalate 20 Mg Tablet) 20 mg PO DAILY [facility] Last Admin: 12/20/23 08:25 Dose: 20 mg Glucose (Glucose Gel 15 Gm Gel..Gram.) 15 gm PO Q15M PRN; Protocol PRN Reason: per Hypoglycemia Standing Ord. Hydroxyzine HCl (Hydroxyzine Hcl 25 Mg Tablet) 25 mg PO Q6H PRN PRN Reason: Anxiety Last Admin: 12/17/23 19:30 Dose: 25 mg Insulin Glargine (Insulin Glargine,Hum.Rec.Anlog 100 Unit/Ml 10 Ml Vial) 30 unit SUBCUT BEDTIME [facility] Last Admin: 12/19/23 20:59 Dose: 30 unit Lamotrigine (Lamotrigine 25 Mg Tablet) 25 mg PO BEDTIME [facility] Last Admin: 12/19/23 20:57 Dose: 25 mg Lorazepam (Lorazepam 0.5 Mg Tablet) 0.5 mg PO Q8H PRN PRN Reason: Anxiety Last Admin: 12/20/23 15:50 Dose: 0.5 mg Magnesium Hydroxide (Milk Of Magnesia 30 Ml Oral.Susp) 30 ml PO DAILY PRN PRN Reason: Constipation Multivitamins/Vitamin C (Multivitamin Tablet) 1 tab PO DAILY [facility] Last Admin: 12/20/23 08:25 Dose: 1 tab Naltrexone HCl (Naltrexone Hcl 50 Mg Tablet) 50 mg PO DAILY [facility] Last Admin: 12/20/23 08:25 Dose: 50 mg Nicotine (Nicotine 21 Mg Patch.Td24) 21 mg TRANSDERMA DAILY [facility] Last Admin: 12/20/23 08:25 Dose: 21 mg Nicotine Polacrilex (Nicotine Polacrilex Lozenge 2 Mg Lozenge) 6 mg BUCCAL Q2H PRN PRN Reason: Nicotine Cravings Last Admin: 12/20/23 13:17 Dose: 6 mg Olanzapine (Olanzapine 5 Mg Tablet) 5 mg PO Q4H PRN PRN Reason: agitation Last Admin: 12/14/23 12:20 Dose: 5 mg Propranolol HCl (Propranolol Hcl 10 Mg Tablet) 5 mg PO TID [facility]; Protocol Last Admin: 12/20/23 15:54 Dose: 5 mg Thiamine HCl (Thiamine Hcl 100 Mg Tablet) 100 mg PO DAILY [facility] Last Admin: 12/20/23 08:25 Dose: 100 mg Trazodone HCl (Trazodone Hcl 100 Mg Tablet) 100 mg PO BEDTIME [facility] Last Admin: 12/19/23 20:57 Dose: 100 mg Allergies Allergies Allergy/AdvReac Type Severity Reaction Status Date / Time No Known Allergies Allergy Verified 12/06/23 16:26 Assessment & Plan Assessment & Plan (1) Mood disorder: Status: Acute Code(s): F39 - Unspecified mood [affective] disorder Plan 33 yo male, history of opiate, alcohol, cocaine dependence with sobriety for ~4 years from opiates, 3.5 months from cocaine, alcohol. Pt asked to leave his program due to a conflict with a peer, temper issues which he would like assist with. Plan: Collateral contact Lexapro 10 mg daily Lamictal 25 mg HS Olanzapine 5 mg prn Pt given literature on bipolar disorder to review as he believes he has been manic in the past. 12/09/23- Continue current regime. 23: We talked at length regarding sobriety and he is unsure if perhaps a low- dose methadone might help with cravings versus long acting injectable of naltrexone. Ultimately prefer an addictions consult to discuss pros and cons of either. 12/11: no changes 12/13/23: Continue tx. No changes today. Addiction consult-AA connection request 12/14/23: Change Adderall to XR 10 mg bid 0800,1400 12/15/23: Change Adderall to XR 10 mg a.m. 15 mg 1400 Change Olanzapine to prn 12/16/23: Continue tx Discussed options to exchange Adderall- Strattera, Guanfacine, Vyvanse Meeting with recovery team today scheduled to discuss aftercare planning. 12/17/23: Increase Trazodone to 100 mg HS 12/18/23: Depakote ER 750 mg HS Adderall XR 15 0800, 1300 02/12: monitor for reoccurring rash. continue current tx plan. 12/20/22: Propranolol 5 mg tid Informed Consent: understands Reason for continued inpatient stay Substantial Risk for: rapid decompensation Time Spent With Patient Time: Total time managing care of this patient today ____ minutes.
[2023-12-20 17:15] LABS: Glucose, Whole Blood 104 mg/dL (60-115)
[2023-12-20] MEDS: Insulin Lispro 100 UNIT/ML 3 ML VIAL 10 UNIT SUBCUT (17:31)
--- NOTE | 2023-12-20 18:00 | PC.NURSE ---
POC 104 , 10U Humalog given per CAW and communication order.
[2023-12-20] MEDS: Divalproex Sodium ER 250 MG TAB.ER.24H 750 MG PO (22:04)
[2023-12-20] MEDS: traZODone HCL 100 MG TABLET PO (22:04)
[2023-12-20] MEDS: lamoTRIgine 25 MG TABLET PO (22:05)
[2023-12-20] MEDS: Insulin Glargine,Hum.rec.anlog 100 UNIT/ML 10 ML VIAL 30 UNIT SUBCUT (22:05)
[2023-12-20 22:07] LABS: Glucose, Whole Blood 85 mg/dL (60-115)
[2023-12-21 08:12] LABS: Glucose, Whole Blood 227 mg/dL (60-115)
[2023-12-21] MEDS: Thiamine HCL 100 MG TABLET PO (08:25)
[2023-12-21] MEDS: Escitalopram Oxalate 20 MG TABLET PO (08:25)
[2023-12-21] MEDS: Naltrexone HCl 50 MG TABLET PO (08:25)
[2023-12-21] MEDS: Nicotine 21 MG PATCH.TD24 TRANSDERMA (08:25)
[2023-12-21] MEDS: Multivitamin TABLET 1 TAB PO (08:25)
[2023-12-21] MEDS: Dextroamphetamine/Amphetamine XR 5 MG CAP.ER.24H 15 MG PO ×2 (08:25→13:06)
[2023-12-21] MEDS: Propranolol HCL 10 MG TABLET 5 MG PO ×3 (08:25→21:11)
[2023-12-21 08:30] VITALS: BP 126/61; PULSE 76; RESP 16; TEMP 36.6; O2SAT 95
[2023-12-21] MEDS: Insulin Lispro 100 UNIT/ML 3 ML VIAL 24 UNIT SUBCUT (09:02)
[2023-12-21] MEDS: Nicotine Polacrilex Lozenge 2 MG LOZENGE 6 MG BUCCAL ×4 (09:54→19:33)
--- NOTE | 2023-12-21 12:16 | P.PNPSI_ITS ---
Subjective Subjective Date of Service: 12/21/23 Reason For Visit: Depression, polysubstance use disorder Subjective Notes: Conditional Voluntary Interim History: Reviewed with Dr. Ochoa. Pt reports feeling good today; pt stated, the medication is working well for my anxiety. I'm looking forward to leaving here . denies SI/HI. Pt reports he plans on following up with outpatient providers. Medication Compliance: Yes Side effects from medications: No Attending Groups: Yes Review of Systems Constitutional: Reports as per HPI Eyes: Reports as per HPI Reports as per HPI Cardiovascular: Reports as per HPI Respiratory: Reports as per HPI Gastrointestinal: Reports as per HPI Genitourinary: Reports as per HPI Musculoskeletal: Reports as per HPI Skin/Breast: Reports as per HPI Reports as per HPI Psychiatric: Reports as per HPI Endocrine: Reports as per HPI Hematologic/Lymphatic: Reports as per HPI Allergic/Immunologic: Reports as per HPI Mental Status Exam Mental Status Exam Narrative: Pt is alert and oriented; behavior is cooperative and calm; dressed in casual attire; mood is described as okay ; eye contact appropriate; Speech is normal rate, volume and prosody and not pressured; thought process is organized; Thought content is on tx; denies SI/HI/AH/VH. Diagnostics Vital Signs (24Hr): Vital Signs - 24 hr 12/20/23 15:50 12/21/23 08:30 Temperature 98.8 F 97.9 F Pulse Rate 95 76 Respiratory Rate 18 16 Blood Pressure 129/73 126/61 Pulse Oximetry 99 95 Oxygen Delivery Method Room Air Room Air BMI result Body Mass Index 27.1 Labs 12/06/23 16:45 12/08/23 09:07 Labs: Laboratory Results - last 48 hr 12/19/23 12/19/23 12/19/23 12:21 17:09 20:21 POC Glucose 136 H 90 167 H 12/20/23 12/20/23 12/20/23 08:33 12:20 17:11 POC Glucose 179 H 112 104 12/20/23 12/21/23 21:58 07:53 POC Glucose 85 227 H Medications Medications Current Medications Acetaminophen (Acetaminophen 325 Mg Tablet) 650 mg PO Q6H PRN PRN Reason: Headache/Pain Mild Scale (1-3) Last Admin: 12/18/23 16:29 Dose: 650 mg Al Hydroxide/Mg Hydroxide (Magnesium Hydrox/Alum Hydrox 30 Ml Oral.Susp) 30 ml PO Q6H PRN PRN Reason: Heartburn/Nausea Amphetamine/Dextroamphetamine (Dextroamphetamine/Amphetamine Xr 5 Mg Cap.Er.24h) 15 mg PO DAILY@1300 [facility] Last Admin: 12/20/23 12:51 Dose: 15 mg Amphetamine/Dextroamphetamine (Dextroamphetamine/Amphetamine Xr 5 Mg Cap.Er.24h) 15 mg PO DAILY@0800 [facility] Last Admin: 12/21/23 08:25 Dose: 15 mg Dextrose (Dextrose 50 % 25 Gm/50 Ml Syringe) 25 gm IVPUSH Q15M PRN; Protocol PRN Reason: per Hypoglycemia Standing Ord. Diphenhydramine HCl (Diphenhydramine Hcl 25 Mg Capsule) 25 mg PO Q6H PRN PRN Reason: Rash Last Admin: 12/18/23 21:18 Dose: 25 mg Divalproex Sodium (Divalproex Sodium Er 250 Mg Tab.Er.24h) 750 mg PO BEDTIME [facility] Last Admin: 12/20/23 22:04 Dose: 750 mg Escitalopram Oxalate (Escitalopram Oxalate 20 Mg Tablet) 20 mg PO DAILY [facility] Last Admin: 12/21/23 08:25 Dose: 20 mg Glucose (Glucose Gel 15 Gm Gel..Gram.) 15 gm PO Q15M PRN; Protocol PRN Reason: per Hypoglycemia Standing Ord. Hydroxyzine HCl (Hydroxyzine Hcl 25 Mg Tablet) 25 mg PO Q6H PRN PRN Reason: Anxiety Last Admin: 12/17/23 19:30 Dose: 25 mg Insulin Glargine (Insulin Glargine,Hum.Rec.Anlog 100 Unit/Ml 10 Ml Vial) 30 unit SUBCUT BEDTIME [facility] Last Admin: 12/20/23 22:05 Dose: 30 unit Lamotrigine (Lamotrigine 25 Mg Tablet) 25 mg PO BEDTIME [facility] Last Admin: 12/20/23 22:05 Dose: 25 mg Lorazepam (Lorazepam 0.5 Mg Tablet) 0.5 mg PO Q8H PRN PRN Reason: Anxiety Last Admin: 12/20/23 15:50 Dose: 0.5 mg Magnesium Hydroxide (Milk Of Magnesia 30 Ml Oral.Susp) 30 ml PO DAILY PRN PRN Reason: Constipation Multivitamins/Vitamin C (Multivitamin Tablet) 1 tab PO DAILY [facility] Last Admin: 12/21/23 08:25 Dose: 1 tab Naltrexone HCl (Naltrexone Hcl 50 Mg Tablet) 50 mg PO DAILY [facility] Last Admin: 12/21/23 08:25 Dose: 50 mg Nicotine (Nicotine 21 Mg Patch.Td24) 21 mg TRANSDERMA DAILY [facility] Last Admin: 12/21/23 08:25 Dose: 21 mg Nicotine Polacrilex (Nicotine Polacrilex Lozenge 2 Mg Lozenge) 6 mg BUCCAL Q2H PRN PRN Reason: Nicotine Cravings Last Admin: 12/21/23 09:54 Dose: 6 mg Olanzapine (Olanzapine 5 Mg Tablet) 5 mg PO Q4H PRN PRN Reason: agitation Last Admin: 12/14/23 12:20 Dose: 5 mg Propranolol HCl (Propranolol Hcl 10 Mg Tablet) 5 mg PO TID [facility]; Protocol Last Admin: 12/21/23 08:25 Dose: 5 mg Thiamine HCl (Thiamine Hcl 100 Mg Tablet) 100 mg PO DAILY [facility] Last Admin: 12/21/23 08:25 Dose: 100 mg Trazodone HCl (Trazodone Hcl 100 Mg Tablet) 100 mg PO BEDTIME [facility] Last Admin: 12/20/23 22:04 Dose: 100 mg Allergies Allergies Allergy/AdvReac Type Severity Reaction Status Date / Time No Known Allergies Allergy Verified 12/06/23 16:26 Assessment & Plan Assessment & Plan (1) Mood disorder: Status: Acute Code(s): F39 - Unspecified mood [affective] disorder Plan 33 yo male, history of opiate, alcohol, cocaine dependence with sobriety for ~4 years from opiates, 3.5 months from cocaine, alcohol. Pt asked to leave his program due to a conflict with a peer, temper issues which he would like assist with. Plan: Collateral contact Lexapro 10 mg daily Lamictal 25 mg HS Olanzapine 5 mg prn Pt given literature on bipolar disorder to review as he believes he has been manic in the past. 12/09/23- Continue current regime. 3: We talked at length regarding sobriety and he is unsure if perhaps a low- dose methadone might help with cravings versus long acting injectable of naltrexone. Ultimately prefer an addictions consult to discuss pros and cons of either. 4: no changes 12/13/23: Continue tx. No changes today. Addiction consult-AA connection request 2/7/24: Change Adderall to XR 10 mg bid 0800,1400 12/15/23: Change Adderall to XR 10 mg a.m. 15 mg 1400 Change Olanzapine to prn 12/16/23: Continue tx Discussed options to exchange Adderall- Skye Vargas Vyvanse Meeting with recovery team today scheduled to discuss aftercare planning. 12/17/23: Increase Trazodone to 100 mg HS 12/18/23: Depakote ER 750 mg HS Adderall XR 15 0800, 1300 12/19: monitor for reoccurring rash. continue current tx plan. 12/20/22: Propranolol 5 mg tid 12/21: Continue current tx plan. Patient educated on: diagnosis and medication risk/benefits Informed Consent: understands Reason for continued inpatient stay Substantial Risk for: med/psych decompensation Time Spent With Patient Time: Total time managing care of this patient today _20___ minutes.
[2023-12-21] MEDS: Insulin Lispro 100 UNIT/ML 3 ML VIAL 7 UNIT SUBCUT (12:28)
[2023-12-21 12:32] LABS: Glucose, Whole Blood 85 mg/dL (60-115)
[2023-12-21 14:12] VITALS: BP 129/68; PULSE 86
[2023-12-21] MEDS: Acetaminophen 325 MG TABLET 650 MG PO (15:42)
[2023-12-21 16:37] VITALS: BP 134/88; PULSE 78; RESP 18; TEMP 36.8; O2SAT 98
[2023-12-21 17:17] LABS: Glucose, Whole Blood 93 mg/dL (60-115)
[2023-12-21] MEDS: Insulin Lispro 100 UNIT/ML 3 ML VIAL 10 UNIT SUBCUT (17:31)
[2023-12-21 20:19] LABS: Glucose, Whole Blood 173 mg/dL (60-115)
[2023-12-21] MEDS: Insulin Lispro 100 UNIT/ML 3 ML VIAL SUBCUT (20:35)
[2023-12-21] MEDS: Insulin Glargine,Hum.rec.anlog 100 UNIT/ML 10 ML VIAL 30 UNIT SUBCUT (20:35)
[2023-12-21] MEDS: Divalproex Sodium ER 250 MG TAB.ER.24H 750 MG PO (21:11)
[2023-12-21] MEDS: traZODone HCL 100 MG TABLET PO (21:11)
[2023-12-21] MEDS: lamoTRIgine 25 MG TABLET PO (21:12)
[2023-12-22] MEDS: Propranolol HCL 10 MG TABLET 5 MG PO (08:02)
[2023-12-22] MEDS: Multivitamin TABLET 1 TAB PO (08:02)
[2023-12-22] MEDS: Escitalopram Oxalate 20 MG TABLET PO (08:02)
[2023-12-22] MEDS: Nicotine 21 MG PATCH.TD24 TRANSDERMA (08:02)
[2023-12-22] MEDS: Naltrexone HCl 50 MG TABLET PO (08:02)
[2023-12-22] MEDS: Thiamine HCL 100 MG TABLET PO (08:02)
[2023-12-22 08:07] VITALS: BP 110/59; PULSE 81; RESP 16; TEMP 36.7; O2SAT 98
[2023-12-22 08:09] LABS: Glucose, Whole Blood 192 mg/dL (60-115)
[2023-12-22] MEDS: Dextroamphetamine/Amphetamine XR 5 MG CAP.ER.24H 15 MG PO (08:21)
[2023-12-22] MEDS: Insulin Lispro 100 UNIT/ML 3 ML VIAL 19 UNIT SUBCUT (08:22)
[2023-12-22] MEDS: Acetaminophen 325 MG TABLET 650 MG PO (08:52)
--- NOTE | 2023-12-22 15:16 | PM.PSYDC ---
DS: Providers Provider Date of Service: 12/22/23 Date of admission: 12/07/23 14:43 Date of discharge: 12/22/23 Primary care physician: None Physician Admitting clinician: Mary Salinas Attending physician on admission: Huseyin Ochoa Consults: 12/08/23 13:51 Addiction Medicine Routine Consulting Provider: Addiction Covering Reason for consultation: Relapse prevention 12/10/23 16:56 Addiction Medicine Routine Consulting Provider: Addiction Covering Reason for consultation: pt unsure of long acting naltrexone v methadone for cravings 12/12/23 12:10 Addiction Medicine Routine Consulting Provider: Addiction Covering Reason for consultation: Pt interested in Methadone Rx Has provider been notified: No 12/13/23 17:03 Addiction Medicine Routine Consulting Provider: Addiction Covering Reason for consultation: Pt requesting AA connection while in pt if possible. Thank you. Has provider been notified: No Attending physician on discharge: Huseyin Ochoa Discharging clinician: Mary Salinas DS: Diagnosis Discharge Diagnosis (1) Mood disorder: Status: Acute DS: Medications Discharge Medications Home Medications: Previous Rx's Medication Instructions Recorded dextroamphetamine-amphetamine ER 15 mg PO BID #60 caps 12/21/23 15 mg 24hr capsule,extend release (Adderall XR) diphenhydramine HCl 25 mg capsule 25 mg PO Q6H PRN Rash #60 caps 12/21/23 divalproex 250 mg tablet,extended 750 mg (3 x 250 mg) PO BEDTIME #90 12/21/23 release 24 hr tabs escitalopram oxalate 20 mg tablet 20 mg PO DAILY #30 tabs 12/21/23 hydroxyzine HCl 25 mg tablet 25 mg PO Q6H PRN Anxiety #60 tabs 12/21/23 insulin glargine 100 unit/mL (3 30 unit (0.3 mL) subcut BEDTIME 12/21/23 mL) subcutaneous pen (Lantus #1,000 multiple units Solostar U-100 Insulin) lamotrigine 25 mg tablet 25 mg PO BEDTIME #30 tabs 12/21/23 multivitamin (Daily-Maria Del Carmen tablet) 1 tab PO DAILY #30 tabs 12/21/23 naltrexone 50 mg tablet 50 mg PO DAILY #30 tabs 12/21/23 nicotine (polacrilex) 4 mg gum 4 mg buccal Q2H #100 ea 12/21/23 (Nicorette) nicotine 21 mg/24 hr daily 1 patch topical DAILY #30 ea 12/21/23 transdermal patch propranolol 10 mg tablet 5 mg PO TID #90 tabs 12/21/23 thiamine mononitrate (vit B1) 100 100 mg PO DAILY #30 tabs 12/21/23 mg tablet trazodone 100 mg tablet 100 mg PO BEDTIME #30 tabs 12/21/23 insulin lispro protamine-lispro 30 unit (0.3 mL) subcut BEDTIME 12/22/23 100 unit/mL (50-50) subcutaneous #15 mL pen (Humalog Mix 50-50 KwikPen) Mental Status Exam Mental Status Exam Patient Appearance: Appropriate Patient Orientation: Person, Place, Time and Situation Level of Consciousness: Alert Patient Behavior: Talkative and Good Eye Contact Mood Description: Constricted Affect Description: Constricted Patient Cognition Impaired: No Ability to Follow Directions: Good Speech Pattern: Spontaneous Speech Memory Description: Intact Hallucinations: None Delusions: Not Present Thought Process: Distracted Thought Content: positive for Perseveration Depressive Symptoms: Difficulty Concentrating Judgement: Good Data Data Completed and Pending Completed studies during hospitalization [Text1]: 12/15/23 12/15/23 12/16/23 17:31 20:12 07:51 POC Glucose 296 H 205 H 269 H 12/16/23 12/16/23 12/16/23 12:07 17:15 20:21 POC Glucose 282 H 142 H 105 12/17/23 12/17/23 12/17/23 08:30 12:06 17:00 POC Glucose 246 H 199 H 280 H 12/17/23 12/18/23 12/18/23 21:04 07:59 12:04 POC Glucose 254 H 269 H 82 12/18/23 12/18/23 12/19/23 17:32 20:33 08:06 POC Glucose 109 335 H 209 H 12/19/23 12/19/23 12/19/23 12:21 17:09 20:21 POC Glucose 136 H 90 167 H 12/20/23 12/20/23 12/20/23 08:33 12:20 17:11 POC Glucose 179 H 112 104 12/20/23 12/21/23 12/21/23 21:58 07:53 12:10 POC Glucose 85 227 H 85 12/21/23 12/21/23 12/22/23 17:12 20:13 07:39 POC Glucose 93 173 H 192 H DS: Summary Hospital Course Hospital Course: Admission to adult psychiatry for exacerbation of mood disorder, ADHD sx. Pt reports four years of sobriety, was living in a therapeutic community where he had a peer conflict with irritability, anger, anxiety, increase in depressive sx and SI prior to admission. Medications were evaluated, initiated and titrated. Pt utilized the milieu to strengthen his coping skills and conflict resolution skills. Pt discharged to [facility] residential respite and out patient care. Status at Discharge Functional status at discharge: independent ambulation Overall status at discharge: patient is back to baseline Time Spent with Patient Time attestation: Total time managing care of this patient today ____ minutes. Time spent: Less than 30 minutes Discharge Plan Discharge Anticipated Discharge Date/Time: 12/22/23 10:00 Patient Disposition: Xfer to Respite Facility Discharge Diagnosis: Mood Disorder Polysubstance Use Disorder Diabetes, Type I Referrals: Therapy Intake:Lorena Jaquez([facility] [employer]) [Other] - 12/28/23 11:00 am (Appointment is in person at the office ) Psych Prescriber: Jeferson Mcmahan ([facility]) [Other] - 01/11/24 9:30 am (Appointment is in person at the office ) Vivitrol: Jessica Farmer ([facility]) [Other] - 01/02/24 2:30 pm (Appointment is for 45 minutes at the office within the hospital; enter through the Main Entrance, take Elevators D or E to 4th floor, take a right off the elevator and [address] is down the moss) Physician,None [Primary Care Provider] - 1 Week Discharge Medications: New naltrexone 50 mg Tablet 50 mg PO DAILY Qty: 30 0RF lamotrigine 25 mg Tablet 25 mg PO BEDTIME Qty: 30 0RF propranolol 10 mg Tablet 5 mg PO TID Qty: 90 0RF Protocol: Hold for SBP/HR < HOLD for SBP < : 90 HOLD for HR < : 60 trazodone 100 mg Tablet 100 mg PO BEDTIME Qty: 30 0RF diphenhydramine HCl 25 mg Capsule 25 mg PO Q6H PRN (Reason: Rash) Qty: 60 0RF hydroxyzine HCl 25 mg Tablet 25 mg PO Q6H PRN (Reason: Anxiety) Qty: 60 0RF escitalopram oxalate 20 mg Tablet 20 mg PO DAILY Qty: 30 0RF divalproex 250 mg Tablet Extended Release 24 Hr 750 mg PO BEDTIME Qty: 90 0RF multivitamin [Daily-Maria Del Carmen] Tablet 1 tab PO DAILY Qty: 30 0RF thiamine mononitrate (vit B1) 100 mg Tablet 100 mg PO DAILY Qty: 30 0RF dextroamphetamine-amphetamine [Adderall XR] 15 mg capsule,extended release 24hr 15 mg PO BID Qty: 60 0RF Rx Instructions: Partial Fill upon patient request. nicotine (polacrilex) [Nicorette] 4 mg gum 4 mg buccal Q2H Qty: 100 0RF Humalog Mix 50-50 KwikPen 100 unit/mL (50-50) insulin pen 30 unit subcut BEDTIME Qty: 15 0RF dextroamphetamine-amphetamine [Adderall XR] 15 mg capsule,extended release 24hr 15 mg PO BID Qty: 60 0RF Rx Instructions: Approved by [facility] [id number] on 12/29/23 until 12/28/24 Continued nicotine 21 mg/24 hr patch 24 hour 1 patch topical DAILY Qty: 30 0RF insulin glargine [Lantus Solostar U-100 Insulin] 100 unit/mL (3 mL) insulin pen 30 unit subcut BEDTIME Qty: 1000 0RF Rx Instructions: 30U Sub Q at QHS. Discontinued (DME) FreeStyle Lite Strips Strip 1 strip MISCELLANEOUS TID Humalog Mix 50-50 KwikPen 100 unit/mL (50-50) insulin pen 1 unit subcut QID Protocol: Insulin Correction Scale Less than or equal to 110 ---- Give (units): 0 111 to 150 Give (units): 2 151 to 200 Give (units): 2 201 to 250 Give (units): 4 251 to 300 Give (units): 6 301 to 350 Give (units): 8 Greater than 350 Give (units): 10 Call MD if Blood Glucose > : 350 Rx Instructions: Give 1U for every 20 points blood glucose is reading over 100. At meal times give 1U for every 15G of Carbohydrates. Discharge Orders: Discharge Order (Routine); Ordered 12/22/23 Ordered By: Mary Salinas Diet: Advance to usual diet Activity on Discharge: As tolerated Stand Alone Forms: Patient Portal Discharge page, Community Support Care Plan Goals: Mood and Behavioral Stabilization Work on ongoing Sobriety Health Concerns: Mood and Behavioral Stabilization Work on ongoing Sobriety Mgt of Diabetes, Type I Plan of Treatment: Attend follow up appointments Take medications as directed Assessment: Scheduled discharge to respite Discharge Date/Time: 12/22/23 10:20
== END 2023-12-22 10:20 | DRG 753 ==
LOC: HO.ED 12-07 07:15 → HO.PM5 12-07 14:51
PROVIDERS: Emergency Medicine; Physician Assistant; Admitting Provider Clinical Nurse Specialist Psychiatric/Mental Health, Adult; Emergency Provider Emergency Medicine Emergency Medical Services; Visit Provider Clinical Nurse Specialist Psychiatric/Mental Health, Adult
DX: F39 Unspecified mood [affective] disorder (principal); R45.851 Suicidal ideations; E10.9 Type 1 diabetes mellitus without complications; F17.210 Nicotine dependence, cigarettes, uncomplicated; F14.21 Cocaine dependence, in remission; F11.21 Opioid dependence, in remission; F10.21 Alcohol dependence, in remission; Z20.822 Contact with and (suspected) exposure to COVID-19; Z71.6 Tobacco abuse counseling; Z87.820 Personal history of traumatic brain injury; Z79.899 Other long term (current) drug therapy
CPT/HCPCS: 36415; 80053; 80061; 80143; 80179; 80307; 81001; 82607; 82746; 82947; 83036; 83735; 84439; 84443; 85025; 87635; 93005; 99285; S9485

== ENCOUNTER 2023-12-07 14:43 | Outpatient (BNV) | payer OTHER, SELFPAY | END 2023-12-07 15:40 | PROVIDERS: Admitting Provider Clinical Nurse Specialist Psychiatric/Mental Health, Adult; Emergency Provider Emergency Medicine Emergency Medical Services; Visit Provider Internal Medicine Cardiovascular Disease | DX: R45.851 Suicidal ideations (principal) | CPT/HCPCS: 93010 ==

== ENCOUNTER → 2023-12-07 14:43 | Outpatient (BNV) | payer OTHER, SELFPAY | PROVIDERS: Admitting Provider Clinical Nurse Specialist Psychiatric/Mental Health, Adult; Emergency Provider Emergency Medicine Emergency Medical Services; Visit Provider Clinical Nurse Specialist Psychiatric/Mental Health, Adult | DX: F39 Unspecified mood [affective] disorder (principal); F33.2 Major depressive disorder, recurrent severe without psychotic features | CPT/HCPCS: 90792; 99231; 99232; 99499 ==